=== PATIENT | male | born 1945 | race Caucasian/White ===

== ENCOUNTER → 2018-08-13 | Outpatient (CLI) | payer MEDICARE ==
--- NOTE | 2018-08-13 13:05 | PE ---
EXAMINATION TYPE: PET CT fusion skull to thigh DATE OF EXAM: 08/13/2018 COMPARISON: Outside CT report July 29, 2018 HISTORY: Solitary pulmonary nodule TECHNIQUE: Following the intravenous administration of 13.73 mCi of F-18 FDG, whole body images are performed from the skull base to the midthigh. Images are reviewed on the computer in the coronal, a xial, and sagittal planes. Reconstructed rotating images are created on independent workstation and reviewed on the computer. A noncontrast CT is performed in conjunction with the PET scan. SCAN: Initial Scan FINDINGS: SKULL BASE AND NECK: No suspicious hypermetabolic uptake. Mild symmetric uptake at level of vocal co rds is presumed product of phonation. CHEST, MEDIASTINUM, AND HILAR REGION: There is background moderate to advanced emphysematous change. There is scarlike opacity in the right upper lobe extending along major fissure slightly more focal a xial image 98 where it measures 1.3 x 1.1 cm without suspicious hypermetabolic uptake. Post inflammat ory scar is favored. No areas of abnormal hypermetabolic uptake throughout the thorax are identified. ABDOMEN AND PELVIS: No suspicious hypermetabolic uptake is seen. Normal excretion is noted. OSSEOUS STRUCTURES: No suspicious hypermetabolic uptake is present. OTHER CT: Mild to moderate calcified plaque bilateral carotid bulb level is present. Coronary artery calcification is seen which is noted marker from underlying coronary artery disease. There is mild to moderate calcified plaque of aorta extending into iliac branch vessels. There is ane urysmal change of the infrarenal abdominal aorta measuring up to 3.5 cm transversely axial image 202 extending up to level of iliac bifurcation. Prostate gland is enlarged in size bulging on bladder base. Bladder wall is mildly thickened. Althoug h obstruction related to BPH is suspected. Correlate clinically. Scattered pelvic phleboliths are not ed bilaterally. There are multilevel uncovertebral facet degenerative changes involving the mid to lower lumbar spine . There is multilevel spurring throughout the spine. Spine is straightened with multilevel disc space narrowing in the lumbar spine. IMPRESSION: 1. No suspicious hypermetabolic uptake to suggest malignancy. 2. 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
== END ==
LOC: RADPETMAIN 09:33
PROVIDERS: ATTEND Internal Medicine
DX: I71.4 Abdominal aortic aneurysm, without rupture (principal)
CPT/HCPCS: 78815; A9552

== ENCOUNTER 2020-12-23 17:53 | Inpatient (IN) | payer MEDICARE, OTHER ==
[2020-12-24] MEDS: HEPARIN SODIUM,PORCINE/PF 5,000 UNIT/0.5 ML SYRINGE SQ SCH ×3 (00:55→21:15)
[2020-12-24] MEDS: SODIUM CHLORIDE 0.9% 1,000 ML IV SCH ×3 (01:06→21:03)
[2020-12-24] MEDS ORDERED: PANTOPRAZOLE 40 MG TABLET PO SCH (06:00)
[2020-12-24] MEDS: DOXYCYCLINE 100 MG CAP PO SCH ×2 (06:47→21:15)
[2020-12-24 08:27] LABS: Glucose,Whole Blood 85 mg/dL (75-99)
[2020-12-24] MEDS ORDERED: PANTOPRAZOLE 40 MG/10 ML VIAL IVP SCH (09:00)
[2020-12-24] MEDS ORDERED: predniSONE 10 MG TAB PO SCH (09:00)
[2020-12-24 09:13] LABS: Basophils # (A) 0.03 X 10*3/uL (0.00-0.10); Basophils % (A) 0.3 %; Eosinophils # (A) 0 X 10*3/uL (0.04-0.35); Eosinophils % (A) 0 %; HCT 37.5 % (39.6-50.0); HGB 11.6 g/dL (13.0-17.0); Lymphocytes # (A) 1.29 X 10*3/uL (0.90-5.00); Lymphocytes % (A) 11.6 %; MCHC 30.9 g/dL (32.0-37.0); MCV 96.9 fL (80.0-97.0); Mean Platelet Volume 10.2 fL (9.5-12.2); Monocytes # (A) 0.66 X 10*3/uL (0.20-1.00); Monocytes % (A) 5.9 %; Neutrophils % (A) 81.5 %; Platelet Count 177 X 10*3/uL (140-440); RBC 3.87 X 10*6/uL (4.40-5.60); RDW 16.3 % (11.5-14.5); WBC 11.16 X 10*3/uL (4.50-10.00)
[2020-12-24 10:01] LABS: African American GFR (CKD) 51.3 (60.0-200.0); Albumin 4.2 g/dL (3.80-4.90); Albumin/Globulin Ratio 2.33 (1.60-3.17); Anion Gap 12.2 mmol/L (4.00-12.00); BUN/Creat Ratio 15.33 Ratio (12.00-20.00); Calcium 8.6 mg/dL (8.7-10.3); Carbon Dioxide 26.8 mmol/L (21.6-31.8); Globulin 1.8 g/dL (1.6-3.3); Non-African American GFR(CKD) 44.3 (60.0-200.0); Potassium 4.2 mmol/L (3.5-5.5); Total Bilirubin 0.7 mg/dL (0.2-1.2)
[2020-12-24] MEDS ORDERED: IPRATROPIUM-ALBUTEROL 3 ML NEB INHALATION PRN (11:12)
[2020-12-24] MEDS ORDERED: MORPHINE CONC SOLN 10mg/0.5mL ORAL SYRG PO PRN (11:12)
[2020-12-24 11:39] LABS: Glucose,Whole Blood 90 mg/dL (75-99)
[2020-12-24] MEDS: INSULIN ASPART (NovoLOG) 100 UNIT/ML VIAL SQ SCH ×3 (11:40→21:01)
[2020-12-24] MEDS: GABAPENTIN 400 MG CAP PO SCH ×2 (11:48→21:15)
[2020-12-24] MEDS: TAMSULOSIN 0.4 MG CAP.ER.24H PO SCH ×2 (11:48→21:15)
[2020-12-24] MEDS: methIMAzole 5 MG TAB PO SCH (11:48)
[2020-12-24] MEDS: AMIODARONE 100 MG TAB PO SCH (11:48)
[2020-12-24] MEDS: DILTIAZEM CD 120 MG CAP.ER.24H PO SCH (11:48)
[2020-12-24] MEDS: BUDESONIDE 1 MG/2 ML NEBU INHALATION SCH ×2 (12:11→20:05)
[2020-12-24] MEDS ORDERED: MORPHINE ORAL SOLN 10 MG/5 ML CUP PO PRN (15:25)
[2020-12-24] MEDS ORDERED: MAG HYDROX/AL HYDROX/SIMETH 30 ML CUP PO PRN (16:35)
[2020-12-24] MEDS ORDERED: NALOXONE 0.4 MG/ML 1 ML VIAL IV PRN (16:35)
[2020-12-24] MEDS ORDERED: ALPRAZolam 0.25 MG TAB PO PRN (16:35)
[2020-12-24] MEDS ORDERED: ONDANSETRON 4 MG/2 ML VIAL IVP PRN (16:35)
[2020-12-24] MEDS ORDERED: MAGNESIUM HYDROXIDE 2,400 MG/10 ML CUP PO PRN (16:35)
[2020-12-24] MEDS ORDERED: CALCIUM CARBONATE 500 MG CHEWABLE PO PRN (16:35)
[2020-12-24] MEDS ORDERED: MELATONIN 3 MG TABLET PO PRN (16:35)
[2020-12-24] MEDS ORDERED: LACTULOSE 20 GM/30 ML CUP PO PRN (16:35)
[2020-12-24 16:40] LABS: Glucose,Whole Blood 135 mg/dL (75-99)
[2020-12-24] MEDS: IPRATROPIUM-ALBUTEROL 3 ML NEB INHALATION SCH ×2 (16:46→20:05)
[2020-12-24] MEDS: guaiFENesin 600 MG TABLET.ER PO SCH ×2 (17:01→21:15)
--- NOTE | 2020-12-24 17:01 | XR ---
EXAMINATION TYPE: XR chest 2V DATE OF EXAM: 12/24/2020 COMPARISON: 12/10/2020. HISTORY: Cough. TECHNIQUE: Frontal and lateral views of the chest are obtained. FINDINGS: There is increased small to moderate opacities in the right upper lung. No significant ple ural effusion, or pneumothorax seen. The cardiac silhouette size is within normal limits. The osse ous structures are intact. IMPRESSION: Increased right upper lung opacities, concerning for infiltrates.
[2020-12-24 17:40] LABS: Anisocytosis Slight; Basophils % (A) 0 %; Eosinophils % (A) 0 %; HCT 32.9 % (39.0-53.0); HGB 10.5 gm/dL (13.0-17.5); Hypochromasia Slight; Lymphocytes # (A) 0.4 k/uL (1.0-4.8); Lymphocytes % (A) 6 %; MCHC 31.8 g/dL (31.0-37.0); MCV 94.4 fL (80.0-100.0); Mean Platelet Volume 7.3; Monocytes # (A) 0.4 k/uL (0-1.0); Monocytes % (A) 6 %; Neutrophils # (A) 6.6 k/uL (1.3-7.7); Neutrophils % (A) 87 %; Platelet Count 152 k/uL (150-450); RBC 3.49 m/uL (4.30-5.90); RDW 16.8 % (11.5-15.5); WBC 7.6 k/uL (3.8-10.6)
[2020-12-24 17:57] LABS: ALT 14 U/L (4-49); AST 20 U/L (17-59); African American GFR (CKD) 53 (>60 ml/min/1.73 sqM); Albumin 3.3 g/dL (3.5-5.0); Albumin/Globulin Ratio 1.6; Alkaline Phosphatase 54 U/L (38-126); Anion Gap 8 mmol/L; Blood Urea Nitrogen 22 mg/dL (9-20); Calcium 8.5 mg/dL (8.4-10.2); Carbon Dioxide 28 mmol/L (22-30); Chloride 99 mmol/L (98-107); Globulin 2.1 g/dL; Glucose 114 mg/dL (74-99); Non-African American GFR(CKD) 45 (>60 ml/min/1.73 sqM); Potassium 4.1 mmol/L (3.5-5.1); Sodium 135 mmol/L (137-145); Total Bilirubin 0.5 mg/dL (0.2-1.3); Total Protein 5.4 g/dL (6.3-8.2)
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
[2020-12-24 20:51] LABS: Glucose,Whole Blood 103 mg/dL (75-99)
[2020-12-24] MEDS: INSULIN DETEMIR (LEVEMIR) 100 UNIT/ML SYR SQ SCH (21:14)
[2020-12-24] MEDS: SENNOSIDES-DOCUSATE SODIUM 1 EACH TAB PO SCH (21:15)
[2020-12-24] MEDS: ATORVASTATIN 80 MG TAB PO SCH (21:15)
[2020-12-24] MEDS: MONTELUKAST 10 MG TAB PO SCH (21:15)
[2020-12-24] MEDS: methylPREDNISolone SOD SUCCI 40 MG/ML 1 ML VIAL IV SCH (23:27)
[2020-12-25] MEDS: IPRATROPIUM-ALBUTEROL 3 ML NEB INHALATION SCH ×6 (00:53→21:25)
[2020-12-25] MEDS: methIMAzole 5 MG TAB PO SCH (05:15)
[2020-12-25] MEDS: PANTOPRAZOLE 40 MG TABLET PO SCH (05:15)
[2020-12-25] MEDS: SODIUM CHLORIDE 0.9% 1,000 ML IV SCH ×2 (05:15→15:55)
[2020-12-25 07:17] LABS: Glucose,Whole Blood 133 mg/dL (75-99)
[2020-12-25] MEDS: INSULIN ASPART (NovoLOG) 100 UNIT/ML VIAL SQ SCH ×4 (07:35→21:53)
[2020-12-25] MEDS: GABAPENTIN 400 MG CAP PO SCH ×3 (07:56→21:59)
[2020-12-25] MEDS: methylPREDNISolone SOD SUCCI 40 MG/ML 1 ML VIAL IV SCH (07:56)
[2020-12-25] MEDS: BUDESONIDE 1 MG/2 ML NEBU INHALATION SCH ×2 (08:31→21:25)
[2020-12-25] MEDS: SENNOSIDES-DOCUSATE SODIUM 1 EACH TAB PO SCH ×2 (09:36→21:59)
[2020-12-25] MEDS: AMIODARONE 100 MG TAB PO SCH (09:36)
[2020-12-25] MEDS: FERROUS SULFATE 325 MG TAB PO SCH (09:37)
[2020-12-25] MEDS: guaiFENesin 600 MG TABLET.ER PO SCH ×4 (09:37→21:59)
[2020-12-25] MEDS: TAMSULOSIN 0.4 MG CAP.ER.24H PO SCH ×2 (09:37→21:59)
[2020-12-25] MEDS: DILTIAZEM CD 120 MG CAP.ER.24H PO SCH (09:37)
[2020-12-25] MEDS: HEPARIN SODIUM,PORCINE/PF 5,000 UNIT/0.5 ML SYRINGE SQ SCH ×2 (09:38→21:59)
[2020-12-25] MEDS: DOXYCYCLINE 100 MG CAP PO SCH (09:38)
[2020-12-25] MEDS: FOLIC ACID 1 MG TAB PO SCH (11:21)
[2020-12-25 11:32] LABS: Glucose,Whole Blood 171 mg/dL (75-99)
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
[2020-12-25 16:55] LABS: Glucose,Whole Blood 142 mg/dL (75-99)
--- NOTE | 2020-12-25 20:38 | P.PN ---
Progress Note - Text Progress Note Date: 12/25/20 Chief Complaint: Congested cough History of presenting complaint: This is a 75-year-old patient, who is an ex-smoker. Patient was transferred here from [facility]. Apparently at resident of [facility] chronic stable medical conditions include nephrectomy, COPD, GERD, atrial fibrillation, hypertension, anemia, diabetes, hepatitis C, diabetic neuralgia, on 3 L oxygen at home. Patient who presented with worsening short of breath cough congestion some sputum production. Some fever. She has not of hearing. Does wear oxygen at home/3 L. He does follow Dr. Casanova from pulmonary. Patient also become rather lethargic. Admitted with acute COPD exacerbation, acute hypoxic respiratory failure, bilateral pneumonia, acute metabolic toxic encephalopathy. Started on DuoNeb, in his steroids, IV Solu-Medrol, oxygen supplementation, IV ceftriaxone December 25: Sitting up in a chair. Oral intake improving. Breathing a bit better. Cough with congestive sputum. More awake. Review of systems: Was done for constitutional, cardiovascular, GI, pulmonary. relevant finding as above Active Medications Acetaminophen (Acetaminophen Tab 325 Mg Tab) 650 mg PO Q6H PRN PRN Reason: Pain Al Hydroxide/Mg Hydroxide (Mag Hydrox/Al Hydrox/Simeth 30 Ml Cup) 15 ml PO Q6HR PRN PRN Reason: Indigestion Albuterol/Ipratropium (Ipratropium-Albuterol 3 Ml Neb) 3 ml INHALATION RT-Q4H PRN PRN Reason: Shortness Of Breath Last Admin: 12/24/20 12:11 Dose: 3 ml Documented by: Albuterol/Ipratropium (Ipratropium-Albuterol 3 Ml Neb) 3 ml INHALATION Q4H LELE Last Admin: 12/25/20 16:20 Dose: 3 ml Documented by: Alprazolam (Alprazolam 0.25 Mg Tab) 0.25 mg PO Q6HR PRN PRN Reason: Anxiety Amiodarone HCl (Amiodarone 100 Mg Tab) 100 mg PO DAILY@0900 [facility] Last Admin: 12/25/20 09:36 Dose: 100 mg Documented by: Atorvastatin Calcium (Atorvastatin 80 Mg Tab) 80 mg PO HS@2100 [facility] Last Admin: 12/24/20 21:15 Dose: 80 mg Documented by: Budesonide (Budesonide 1 Mg/2 Ml Nebu) 1 mg INHALATION RT-BID@0900,2100 [facility] Last Admin: 12/25/20 08:31 Dose: 1 mg Documented by: Calcium Carbonate/Glycine (Calcium Carbonate 500 Mg Chewable) 1,000 mg PO Q4HR PRN PRN Reason: Dyspepsia Diltiazem HCl (Diltiazem Cd 120 Mg Cap.Er.24h) 120 mg PO DAILY@0900 [facility] Last Admin: 12/25/20 09:37 Dose: 120 mg Documented by: Doxycycline Monohydrate (Doxycycline 100 Mg Cap) 100 mg PO BID [facility] Last Admin: 12/25/20 09:38 Dose: 100 mg Documented by: Ferrous Sulfate (Ferrous Sulfate 325 Mg Tab) 325 mg PO DAILY@0900 [facility] Last Admin: 12/25/20 09:37 Dose: 325 mg Documented by: Folic Acid (Folic Acid 1 Mg Tab) 2 mg PO DAILY@0900 [facility] Last Admin: 12/25/20 11:21 Dose: 2 mg Documented by: Gabapentin (Gabapentin 400 Mg Cap) 400 mg PO TID@0900,1300,2100 [facility] Last Admin: 12/25/20 12:13 Dose: 400 mg Documented by: Guaifenesin (Guaifenesin 600 Mg Tablet.Er) 600 mg PO QID [facility] Last Admin: 12/25/20 15:56 Dose: 600 mg Documented by: Heparin Sodium (Porcine) (Heparin Sodium,Porcine/Pf 5,000 Unit/0.5 Ml Syringe) 5,000 unit SQ Q12HR [facility] Last Admin: 12/25/20 09:38 Dose: 5,000 unit Documented by: Sodium Chloride (Saline 0.9%) 1,000 mls @ 100 mls/hr IV .Q10H [facility] Last Admin: 12/25/20 15:55 Dose: 100 mls/hr Documented by: Ceftriaxone Sodium 1 gm/ (Sodium Chloride) 50 mls @ 100 mls/hr IVPB BID [facility] Last Admin: 12/25/20 09:37 Dose: 100 mls/hr Documented by: Insulin Aspart (Insulin Aspart (Novolog) 100 Unit/Ml Vial) 0 unit SQ ACHS [facility]; Protocol Last Admin: 12/25/20 16:59 Dose: 1 unit Documented by: Insulin Detemir (Insulin Detemir (Levemir) 100 Unit/Ml Syr) 10 unit SQ HS@2100 [facility] Last Admin: 12/24/20 21:14 Dose: 10 unit Documented by: Lactulose (Lactulose 20 Gm/30 Ml Cup) 20 gm PO DAILY PRN PRN Reason: Constipation Magnesium Hydroxide (Magnesium Hydroxide 2,400 Mg/10 Ml Cup) 2,400 mg PO DAILY PRN PRN Reason: Constipation Melatonin (Melatonin 3 Mg Tablet) 3 mg PO HS PRN PRN Reason: Insomnia Methimazole (Methimazole 5 Mg Tab) 5 mg PO DAILY@0600 [facility] Last Admin: 12/25/20 05:15 Dose: 5 mg Documented by: Montelukast Sodium (Montelukast 10 Mg Tab) 10 mg PO HS@2100 [facility] Last Admin: 12/24/20 21:15 Dose: 10 mg Documented by: Morphine Sulfate (Morphine Oral Soln 10 Mg/5 Ml Cup) 5 mg PO Q4HR PRN PRN Reason: Pain Naloxone HCl (Naloxone 0.4 Mg/Ml 1 Ml Vial) 0.2 mg IV Q2M PRN PRN Reason: Opioid Reversal Ondansetron HCl (Ondansetron 4 Mg/2 Ml Vial) 4 mg IVP Q8HR PRN PRN Reason: Nausea And Vomiting Pantoprazole Sodium (Pantoprazole 40 Mg Tablet) 40 mg PO DAILY@0600 [facility] Last Admin: 12/25/20 05:15 Dose: 40 mg Documented by: Prednisone (Prednisone 20 Mg Tab) 40 mg PO DAILY [facility] Senna/Docusate Sodium (Sennosides-Docusate Sodium 1 Each Tab) 1 each PO BID@0900,2100 [facility] Last Admin: 12/25/20 09:36 Dose: 1 each Documented by: Tamsulosin HCl (Tamsulosin 0.4 Mg Cap.Er.24h) 0.4 mg PO BID@0900,2100 [facility] Last Admin: 12/25/20 09:37 Dose: 0.4 mg Documented by: Past medical history to include: COPD, peripheral neuropathy, BPH, COPD, diabetes, GERD, hyper thyroidism, hypertension, hyperlipidemia, CK D, hepatitis C, hepatic neuralgia Social history: At [facility] Smoked for many years stopped a year ago. Family history: Reviewed, noncontributory to presentation Physical examination: VITAL SIGNS: 98.3, 69, 18, 111/48, 100% on 3 L GENERAL: BMI 23, sitting up, tired, short of breath. EYES: Pupils equal. Conjunctiva normal. HEENT: External appearance of nose and ears normal, oral cavity grossly normal. NECK: JVD not raised; masses not palpable. HEART: First and second heart sounds are normal; no edema. LUNGS: Respiratory rate increased, decreased breath sounds some wheezing decreased coarse breath sounds. ABDOMEN: Soft, nontender, liver spleen not palpable, no masses palpable. PSYCH: Answering questions better INVESTIGATIONS, reviewed in the clinical context: December 24: WBC 7.60 globin 10.5 potassium 4.1 creatinine 1.47 From [facility]: Lactic acid 1.3 mL 1.3 troponin I 0.011 immediately 1.9 chest x-ray bilateral infiltrates Sodium 138 potassium 4.8 BUN 20 creatinine 1.9 computed tomography scan of the brain negative WBC 12.2 hemoglobin 11 platelets 155 Assessment and plan: -Acute COPD exacerbation in the ex-smoker: Slow to respond DuoNeb every 4, Pulmicort 1 g nebulizer twice a day. IV Solu-Medrol -Possibly acute hypoxic respiratory failure from COPD and pneumonia Supplement oxygen -Bilateral pneumonia suspected gram-negative organism IV ceftriaxone 1 g twice a day -Acute metabolic toxic encephalopathy from pneumonia Follow clinically -Acute kidney injury, likely ATN from underlying infection Creatinine 1.9 down to 1.47. 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 Resume Lantus -Essential hypertension Resume Cardizem -Hyperlipidemia Continue Lipitor -BPH On Flomax -Diabetic peripheral neuropathy On Neurontin IV ceftriaxone. Nebulizers. Inhaled and IV steroids. Follow Accu-Cheks. Repeat BMP in the morning. Increase activity as tolerated. Probably discharge in 1-2 days depending on clinical course
[2020-12-25 21:15] LABS: Glucose,Whole Blood 159 mg/dL (75-99)
[2020-12-25] MEDS: MONTELUKAST 10 MG TAB PO SCH (21:59)
[2020-12-25] MEDS: ATORVASTATIN 80 MG TAB PO SCH (21:59)
[2020-12-25] MEDS: INSULIN DETEMIR (LEVEMIR) 100 UNIT/ML SYR SQ SCH (22:00)
[2020-12-26] MEDS: IPRATROPIUM-ALBUTEROL 3 ML NEB INHALATION SCH ×6 (00:59→18:58)
[2020-12-26] MEDS: methIMAzole 5 MG TAB PO SCH (06:07)
[2020-12-26] MEDS: PANTOPRAZOLE 40 MG TABLET PO SCH (06:07)
[2020-12-26 06:12] LABS: Anisocytosis Slight; Basophils % (A) 0 %; Eosinophils % (A) 0 %; HCT 31.6 % (39.0-53.0); HGB 10.7 gm/dL (13.0-17.5); Lymphocytes # (A) 0.5 k/uL (1.0-4.8); Lymphocytes % (A) 9 %; MCH 31.1 pg (25.0-35.0); MCHC 33.8 g/dL (31.0-37.0); Mean Platelet Volume 7.8; Monocytes # (A) 0.4 k/uL (0-1.0); Monocytes % (A) 6 %; Neutrophils % (A) 84 %; Platelet Count 156 k/uL (150-450); RBC 3.43 m/uL (4.30-5.90); RDW 16.2 % (11.5-15.5); WBC 5.9 k/uL (3.8-10.6)
[2020-12-26 06:18] LABS: African American GFR (CKD) 61 (>60 ml/min/1.73 sqM); Anion Gap 6 mmol/L; Blood Urea Nitrogen 24 mg/dL (9-20); Calcium 9.1 mg/dL (8.4-10.2); Carbon Dioxide 26 mmol/L (22-30); Chloride 105 mmol/L (98-107); Glucose 131 mg/dL (74-99); Non-African American GFR(CKD) 53 (>60 ml/min/1.73 sqM); Sodium 137 mmol/L (137-145)
[2020-12-26 07:15] LABS: Glucose,Whole Blood 129 mg/dL (75-99)
[2020-12-26] MEDS: INSULIN ASPART (NovoLOG) 100 UNIT/ML VIAL SQ SCH ×4 (07:25→22:01)
[2020-12-26] MEDS: HEPARIN SODIUM,PORCINE/PF 5,000 UNIT/0.5 ML SYRINGE SQ SCH ×2 (07:36→20:24)
[2020-12-26] MEDS: FERROUS SULFATE 325 MG TAB PO SCH (07:36)
[2020-12-26] MEDS: predniSONE 20 MG TAB PO SCH (07:36)
[2020-12-26] MEDS: guaiFENesin 600 MG TABLET.ER PO SCH ×4 (07:36→20:25)
[2020-12-26] MEDS: FOLIC ACID 1 MG TAB PO SCH (07:36)
[2020-12-26] MEDS: DILTIAZEM CD 120 MG CAP.ER.24H PO SCH (07:37)
[2020-12-26] MEDS: TAMSULOSIN 0.4 MG CAP.ER.24H PO SCH ×2 (07:37→20:24)
[2020-12-26] MEDS: GABAPENTIN 400 MG CAP PO SCH ×3 (07:37→20:25)
[2020-12-26] MEDS: SENNOSIDES-DOCUSATE SODIUM 1 EACH TAB PO SCH ×2 (07:37→20:24)
[2020-12-26] MEDS: AMIODARONE 100 MG TAB PO SCH (07:37)
[2020-12-26] MEDS: BUDESONIDE 1 MG/2 ML NEBU INHALATION SCH ×2 (08:34→18:58)
[2020-12-26 11:24] LABS: Glucose,Whole Blood 162 mg/dL (75-99)
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
[2020-12-26 16:35] LABS: Glucose,Whole Blood 162 mg/dL (75-99)
--- NOTE | 2020-12-26 17:44 | P.PN ---
Progress Note - Text Progress Note Date: 12/26/20 Chief Complaint: Congested cough History of presenting complaint: This is a 75-year-old patient, who is an ex-smoker. Patient was transferred here from [facility]. Apparently at resident of [facility] chronic stable medical conditions include nephrectomy, COPD, GERD, atrial fibrillation, hypertension, anemia, diabetes, hepatitis C, diabetic neuralgia, on 3 L oxygen at home. Patient who presented with worsening short of breath cough congestion some sputum production. Some fever. She has not of hearing. Does wear oxygen at home/3 L. He does follow Dr. Casanova from pulmonary. Patient also become rather lethargic. Admitted with acute COPD exacerbation, acute hypoxic respiratory failure, bilateral pneumonia, acute metabolic toxic encephalopathy. Started on DuoNeb, in his steroids, IV Solu-Medrol, oxygen supplementation, IV ceftriaxone December 25: Sitting up in a chair. Oral intake improving. Breathing a bit better. Cough with congestive sputum. More awake. December 26: Sitting up in bed. Short of breath. Cough. Oral intake improving. Less tired. On IV ceftriaxone. Review of systems: Was done for constitutional, cardiovascular, GI, pulmonary. relevant finding as above Active Medications Acetaminophen (Acetaminophen Tab 325 Mg Tab) 650 mg PO Q6H PRN PRN Reason: Pain Al Hydroxide/Mg Hydroxide (Mag Hydrox/Al Hydrox/Simeth 30 Ml Cup) 15 ml PO Q6HR PRN PRN Reason: Indigestion Albuterol/Ipratropium (Ipratropium-Albuterol 3 Ml Neb) 3 ml INHALATION RT-Q4H PRN PRN Reason: Shortness Of Breath Last Admin: 12/24/20 12:11 Dose: 3 ml Documented by: Albuterol/Ipratropium (Ipratropium-Albuterol 3 Ml Neb) 3 ml INHALATION Q4H LELE Last Admin: 12/26/20 15:12 Dose: Not Given Documented by: Alprazolam (Alprazolam 0.25 Mg Tab) 0.25 mg PO Q6HR PRN PRN Reason: Anxiety Amiodarone HCl (Amiodarone 100 Mg Tab) 100 mg PO DAILY@0900 [facility] Last Admin: 12/26/20 07:37 Dose: 100 mg Documented by: Atorvastatin Calcium (Atorvastatin 80 Mg Tab) 80 mg PO HS@2100 [facility] Last Admin: 12/25/20 21:59 Dose: 80 mg Documented by: Budesonide (Budesonide 1 Mg/2 Ml Nebu) 1 mg INHALATION RT-BID@0900,2100 [facility] Last Admin: 12/26/20 08:34 Dose: 1 mg Documented by: Calcium Carbonate/Glycine (Calcium Carbonate 500 Mg Chewable) 1,000 mg PO Q4HR PRN PRN Reason: Dyspepsia Diltiazem HCl (Diltiazem Cd 120 Mg Cap.Er.24h) 120 mg PO DAILY@0900 [facility] Last Admin: 12/26/20 07:37 Dose: 120 mg Documented by: Ferrous Sulfate (Ferrous Sulfate 325 Mg Tab) 325 mg PO DAILY@0900 [facility] Last Admin: 12/26/20 07:36 Dose: 325 mg Documented by: Folic Acid (Folic Acid 1 Mg Tab) 2 mg PO DAILY@0900 [facility] Last Admin: 12/26/20 07:36 Dose: 2 mg Documented by: Gabapentin (Gabapentin 400 Mg Cap) 400 mg PO TID@0900,1300,2100 [facility] Last Admin: 12/26/20 13:10 Dose: 400 mg Documented by: Guaifenesin (Guaifenesin 600 Mg Tablet.Er) 600 mg PO QID [facility] Last Admin: 12/26/20 17:29 Dose: 600 mg Documented by: Heparin Sodium (Porcine) (Heparin Sodium,Porcine/Pf 5,000 Unit/0.5 Ml Syringe) 5,000 unit SQ Q12HR [facility] Last Admin: 12/26/20 07:36 Dose: 5,000 unit Documented by: Ceftriaxone Sodium 1 gm/ (Sodium Chloride) 50 mls @ 100 mls/hr IVPB BID [facility] Last Admin: 12/26/20 07:35 Dose: 100 mls/hr Documented by: Insulin Aspart (Insulin Aspart (Novolog) 100 Unit/Ml Vial) 0 unit SQ ACHS [facility]; Protocol Last Admin: 12/26/20 17:29 Dose: 1 unit Documented by: Insulin Detemir (Insulin Detemir (Levemir) 100 Unit/Ml Syr) 10 unit SQ HS@2100 [facility] Last Admin: 12/25/20 22:00 Dose: 10 unit Documented by: Lactulose (Lactulose 20 Gm/30 Ml Cup) 20 gm PO DAILY PRN PRN Reason: Constipation Magnesium Hydroxide (Magnesium Hydroxide 2,400 Mg/10 Ml Cup) 2,400 mg PO DAILY PRN PRN Reason: Constipation Melatonin (Melatonin 3 Mg Tablet) 3 mg PO HS PRN PRN Reason: Insomnia Methimazole (Methimazole 5 Mg Tab) 5 mg PO DAILY@0600 [facility] Last Admin: 12/26/20 06:07 Dose: 5 mg Documented by: Montelukast Sodium (Montelukast 10 Mg Tab) 10 mg PO HS@2100 [facility] Last Admin: 12/25/20 21:59 Dose: 10 mg Documented by: Morphine Sulfate (Morphine Oral Soln 10 Mg/5 Ml Cup) 5 mg PO Q4HR PRN PRN Reason: Pain Naloxone HCl (Naloxone 0.4 Mg/Ml 1 Ml Vial) 0.2 mg IV Q2M PRN PRN Reason: Opioid Reversal Ondansetron HCl (Ondansetron 4 Mg/2 Ml Vial) 4 mg IVP Q8HR PRN PRN Reason: Nausea And Vomiting Pantoprazole Sodium (Pantoprazole 40 Mg Tablet) 40 mg PO DAILY@0600 [facility] Last Admin: 12/26/20 06:07 Dose: 40 mg Documented by: Prednisone (Prednisone 20 Mg Tab) 40 mg PO DAILY [facility] Last Admin: 12/26/20 07:36 Dose: 40 mg Documented by: Senna/Docusate Sodium (Sennosides-Docusate Sodium 1 Each Tab) 1 each PO BID@0900,2100 [facility] Last Admin: 12/26/20 07:37 Dose: 1 each Documented by: Tamsulosin HCl (Tamsulosin 0.4 Mg Cap.Er.24h) 0.4 mg PO BID@0900,2100 [facility] Last Admin: 12/26/20 07:37 Dose: 0.4 mg Documented by: Past medical history to include: COPD, peripheral neuropathy, BPH, COPD, diabetes, GERD, hyper thyroidism, hypertension, hyperlipidemia, CK D, hepatitis C, hepatic neuralgia Social history: At [facility] Smoked for many years stopped a year ago. Family history: Reviewed, noncontributory to presentation Physical examination: VITAL SIGNS: 97.7, 68, 17, 132/61, 100% on 4 L GENERAL: BMI 23, sitting up, tired, short of breath. EYES: Pupils equal. Conjunctiva normal. HEENT: External appearance of nose and ears normal, oral cavity grossly normal. NECK: JVD not raised; masses not palpable. HEART: First and second heart sounds are normal; no edema. LUNGS: Respiratory rate increased, decreased breath sounds some wheezing ABDOMEN: Soft, nontender, liver spleen not palpable, no masses palpable. PSYCH: Answering questions better INVESTIGATIONS, reviewed in the clinical context: December 26: WBC [age]-year-old woman 10.7 potassium 4 creatinine 1.3 pro-calcitonin 0.39 December 24: WBC 7.60 globin 10.5 potassium 4.1 creatinine 1.47 From [facility]: Lactic acid 1.3 mL 1.3 troponin I 0.011 immediately 1.9 chest x-ray bilateral infiltrates Sodium 138 potassium 4.8 BUN 20 creatinine 1.9 computed tomography scan of the brain negative WBC 12.2 hemoglobin 11 platelets 155 Assessment and plan: -Acute COPD exacerbation in the ex-smoker: Improving DuoNeb every 4, Pulmicort 1 g nebulizer twice a day. IV [id number] to oral prednisone -Possibly acute hypoxic respiratory failure from COPD and pneumonia Supplement oxygen -Bilateral pneumonia suspected gram-negative organism-improving IV ceftriaxone 1 g twice a day -Acute metabolic toxic encephalopathy from pneumonia: Better Follow clinically -Acute kidney injury, likely ATN from underlying infection Creatinine 1.9 down to 1.47. 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 Resume Lantus -Essential hypertension Resume Cardizem -Hyperlipidemia Continue Lipitor -BPH On Flomax -Diabetic peripheral neuropathy On Neurontin IV ceftriaxone. Nebulizers. Steroids changed to by mouth. Patient still short of breath with minimal activity. We'll watch for another 24 hours. Hopefully discharge tomorrow. Discussed with the patient.
[2020-12-26] MEDS: MONTELUKAST 10 MG TAB PO SCH (20:24)
[2020-12-26] MEDS: ATORVASTATIN 80 MG TAB PO SCH (20:25)
[2020-12-26] MEDS: ACETAMINOPHEN TAB 325 MG TAB PO PRN (20:27)
[2020-12-26 20:43] LABS: Glucose,Whole Blood 196 mg/dL (75-99)
[2020-12-26] MEDS: INSULIN DETEMIR (LEVEMIR) 100 UNIT/ML SYR SQ SCH (22:30)
[2020-12-27] MEDS: IPRATROPIUM-ALBUTEROL 3 ML NEB INHALATION SCH ×4 (01:23→11:48)
[2020-12-27] MEDS: methIMAzole 5 MG TAB PO SCH (05:58)
[2020-12-27] MEDS: PANTOPRAZOLE 40 MG TABLET PO SCH (05:58)
[2020-12-27 06:58] LABS: Glucose,Whole Blood 97 mg/dL (75-99)
[2020-12-27] MEDS: INSULIN ASPART (NovoLOG) 100 UNIT/ML VIAL SQ SCH ×2 (07:09→11:56)
[2020-12-27 07:36] VITALS: BP 134/67; TEMP 97.6
--- NOTE | 2020-12-27 08:14 | XR ---
EXAMINATION TYPE: XR chest 2V DATE OF EXAM: 12/27/2020 COMPARISON: 12/24/2020 TECHNIQUE: PA and lateral views submitted. HISTORY: Cough FINDINGS: There is hyperinflation. There is an irregular density in the right upper lobe. Heart size normal. Hy pertrophic and degenerative change the spine. No overt failure. No sizable pleural effusion. No inter stitial edema. Prominence the pulmonary arteries can be associated with pulmonary arterial hypertensi on. Atherosclerotic change aorta. Biapical pleural thickening. IMPRESSION: 1. Irregular right upper lobe density. Could be on the basis of pneumonia underlying neoplasm in the differential diagnosis correlate clinically. Findings stable.
[2020-12-27] MEDS: BUDESONIDE 1 MG/2 ML NEBU INHALATION SCH (08:21)
[2020-12-27] MEDS: FERROUS SULFATE 325 MG TAB PO SCH (09:59)
[2020-12-27] MEDS: GABAPENTIN 400 MG CAP PO SCH ×2 (09:59→12:51)
[2020-12-27] MEDS: guaiFENesin 600 MG TABLET.ER PO SCH ×2 (09:59→12:51)
[2020-12-27] MEDS: predniSONE 20 MG TAB PO SCH (10:00)
[2020-12-27] MEDS: DILTIAZEM CD 120 MG CAP.ER.24H PO SCH (10:00)
[2020-12-27] MEDS: SENNOSIDES-DOCUSATE SODIUM 1 EACH TAB PO SCH (10:01)
[2020-12-27] MEDS: FOLIC ACID 1 MG TAB PO SCH (10:01)
[2020-12-27] MEDS: HEPARIN SODIUM,PORCINE/PF 5,000 UNIT/0.5 ML SYRINGE SQ SCH (10:02)
[2020-12-27] MEDS: TAMSULOSIN 0.4 MG CAP.ER.24H PO SCH (10:02)
[2020-12-27] MEDS: ACETAMINOPHEN TAB 325 MG TAB PO PRN (10:15)
[2020-12-27] MEDS: AMIODARONE 100 MG TAB PO SCH (10:15)
[2020-12-27 11:38] LABS: Glucose,Whole Blood 128 mg/dL (75-99)
--- NOTE | 2020-12-27 14:36 | P.DS ---
Providers Date of admission: 12/23/20 22:25 Expected date of discharge: 12/27/20 Attending physician: Ted Musa Consults: 12/24/20 16:29 Consult Physician Routine Consulting Provider: Sergo Casanova Consult Reason/Comments: COPD Do you want consulting provider notified?: Yes Primary care physician: Stated None Hospital Course: Chief Complaint: Congested cough History of presenting complaint: This is a 75-year-old patient, who is an ex-smoker. Patient was transferred here from [facility]. Apparently at [facility] chronic stable m edical conditions include nephrectomy, COPD, GERD, atrial fibrillation, hypertension, anemia, diabetes, hepatitis C, diabetic neuralgia, on 3 L oxygen at home. Patient who presented with worsening short of breath cough congestion some sputum production. Some fever. She has not of hearing. Does wear oxygen at home/3 L. He does follow Dr. Casanova from pulmonary. Patient also become rather lethargic. Admitted with acute COPD exacerbation, acute hypoxic respiratory failure, bilateral pneumonia, acute metabolic toxic encephalopathy. Started on DuoNeb, in his steroids, IV Solu-Medrol, oxygen supplementation, IV ceftriaxone December 25: Sitting up in a chair. Oral intake improving. Breathing a bit better. Cough with congestive sputum. More awake. December 26: Sitting up in bed. Short of breath. Cough. Oral intake improving. Less tired. On IV ceftriaxone. December 27: Breathing and cough better. Oral intake improving. Less wheezing. Care was discussed with the patient. Questions answered. Will be changed to oral Ceftin. Discussion and discharge planning more than 35 minutes Consultation: Dr. Casanova from pulmonary Past medical history to include: COPD, peripheral neuropathy, BPH, COPD, diabetes, GERD, hyper thyroidism, hypertension, hyperlipidemia, CK D, hepatitis C, hepatic neuralgia Social history: At [facility] Smoked for many years stopped a year ago. Family history: Reviewed, noncontributory to presentation Physical examination: VITAL SIGNS: 97.6, 77, 16, 134/67, 98% on 3 dose GENERAL: BMI 23, sitting up, short of breath improved EYES: Pupils equal. Conjunctiva normal. HEENT: External appearance of nose and ears normal, oral cavity grossly normal. NECK: JVD not raised; masses not palpable. HEART: First and second heart sounds are normal; no edema. LUNGS: Respiratory rate increased, decreased breath sounds ABDOMEN: Soft, nontender, liver spleen not palpable, no masses palpable. PSYCH: Answering questions better INVESTIGATIONS, reviewed in the clinical context: December 26: WBC [age]-year-old woman 10.7 potassium 4 creatinine 1.3 pro-calcitonin 0.39 December 24: WBC 7.60 globin 10.5 potassium 4.1 creatinine 1.47 From [facility]: Lactic acid 1.3 mL 1.3 troponin I 0.011 immediately 1.9 chest x-ray bilateral infiltrates Sodium 138 potassium 4.8 BUN 20 creatinine 1.9 computed tomography scan of the brain negative WBC 12.2 hemoglobin 11 platelets 155 Assessment and plan: -Acute COPD exacerbation in the ex-smoker: Improving DuoNeb every 4, Pulmicort 1 g nebulizer twice a day. IV [id number] to oral prednisone -Possibly acute hypoxic respiratory failure from COPD and pneumonia Supplement oxygen -Bilateral pneumonia suspected gram-negative organism-improving IV ceftriaxone 1 g twice a day. Changed to oral Ceftin -Acute metabolic toxic encephalopathy from pneumonia: Better Follow clinically -Acute kidney injury, likely ATN from underlying infection Creatinine 1.9 down to 1.47. 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 Resume Lantus -Essential hypertension Resume Cardizem -Hyperlipidemia Continue Lipitor -BPH On Flomax -Diabetic peripheral neuropathy On Neurontin Disposition: [facility] CBC BMP: 3 days Plan - Discharge Summary Discharge Rx Participant: No New Discharge Prescriptions: New Cefuroxime Axetil [Ceftin] 500 mg PO BID #6 tab Lactulose [Cephulac] 20 gm PO DAILY PRN ml PRN Reason: Constipation guaiFENesin [Mucinex] 600 mg PO QID tablet.er Ipratropium-Albuterol Nebulize [Duoneb 0.5 mg-3 mg/3 ml Soln] 3 ml INHALATION RT-Q4H PRN ml PRN Reason: Shortness Of Breath Melatonin 3 mg PO HS PRN tablet PRN Reason: Insomnia predniSONE 10 mg PO DAILY #30 tab Continue Sennosides-Docusate Sodium [Senokot-S] 1 tab PO BID@0900,2100 Tamsulosin [Flomax] 0.4 mg PO BID@0900,2099 Montelukast Sodium [Singulair] 10 mg PO HS@2099 Insulin Glargine,Hum.rec.anlog [Semglee Pen] 10 units SQ HS@2099 Omeprazole 20 mg PO DAILY@0600 Methimazole [Tapazole] 5 mg PO DAILY@0600 Folic Acid 2 mg PO DAILY@0900 Ferrous Sulfate [Iron] 325 mg PO DAILY@0900 Amiodarone HCl [Pacerone] 100 mg PO DAILY@0900 Gabapentin [Neurontin] 400 mg PO TID@0900,1300,2099 #9 cap MORPHINE ORAL LUIZ CONC 20mg/mL [Roxanol Oral Soln Conc 20MG/ML] 5 mg PO Q4HR PRN #600 bottle PRN Reason: Pain Acetaminophen Tab [Tylenol] 650 mg PO Q6H PRN PRN Reason: Pain Magic Mouthwash 15 ml PO Q6H Budesonide [Pulmicort] 1 mg INHALATION RT-BID@899,2099 Diltiazem HCl [Cardizem CD] 120 mg PO DAILY@0900 Atorvastatin Calcium [Lipitor] 80 mg PO HS@2099 Changed Ipratropium-Albuterol Nebulize [Duoneb 0.5 mg-3 mg/3 ml Soln] 3 ml INHALATION TID #0 Discontinued Levalbuterol Tartrate [Levalbuterol Tartrate 45 MCG Hfa] 2 puff INHALATION RT-Q4H predniSONE 10 mg PO DAILY@0900 Furosemide [Lasix] 20 mg PO DAILY@0900 Discharge Medication List Acetaminophen Tab [Tylenol] 650 mg PO Q6H PRN 12/23/20 [History] Amiodarone HCl [Pacerone] 100 mg PO DAILY@89912/23/20 [History] Atorvastatin Calcium [Lipitor] 80 mg PO HS@209912/23/20 [History] Budesonide [Pulmicort] 1 mg INHALATION RT-BID@899,209912/23/20 [History] Diltiazem HCl [Cardizem CD] 120 mg PO DAILY@89912/23/20 [History] Ferrous Sulfate [Iron] 325 mg PO DAILY@89912/23/20 [History] Folic Acid 2 mg PO DAILY@89912/23/20 [History] Insulin Glargine,Hum.rec.anlog [Semglee Pen] 10 units SQ HS@209912/23/20 [His tory] Magic Mouthwash 15 ml PO Q6H 12/23/20 [History] Methimazole [Tapazole] 5 mg PO DAILY@59912/23/20 [History] Montelukast Sodium [Singulair] 10 mg PO HS@209912/23/20 [History] Omeprazole 20 mg PO DAILY@59912/23/20 [History] Sennosides-Docusate Sodium [Senokot-S] 1 tab PO BID@0900,209912/23/20 [History] Tamsulosin [Flomax] 0.4 mg PO BID@0900,209912/23/20 [History] Cefuroxime Axetil [Ceftin] 500 mg PO BID #6 tab 12/27/20 [Rx] Gabapentin [Neurontin] 400 mg PO TID@0900,1300,2099 #9 cap 12/27/20 [Rx] Ipratropium-Albuterol Nebulize [Duoneb 0.5 mg-3 mg/3 ml Soln] 3 ml INHALATION RT-Q4H PRN ml 12/27/20 [Rx] Ipratropium-Albuterol Nebulize [Duoneb 0.5 mg-3 mg/3 ml Soln] 3 ml INHALATION TID #0 12/27/20 [Rx] Lactulose [Cephulac] 20 gm PO DAILY PRN ml 12/27/20 [Rx] MORPHINE ORAL LUIZ CONC 20mg/mL [Roxanol Oral Soln Conc 20MG/ML] 5 mg PO Q4HR PRN #600 bottle 12/27/20 [Rx] Melatonin 3 mg PO HS PRN tablet 12/27/20 [Rx] guaiFENesin [Mucinex] 600 mg PO QID tablet.er 12/27/20 [Rx] predniSONE 10 mg PO DAILY #30 tab 12/27/20 [Rx] Follow up Appointment(s)/Referral(s): Sergo Casanova MD [STAFF PHYSICIAN] - 01/20/21 1:45 pm
[2020-12-27 14:44] VITALS: PULSE 77; RESP 16
== END 2020-12-27 15:30 | disposition home or self-care (01) | DRG 177 ==
LOC: 4SSUR 22:25
PROVIDERS: ADMIT Hospitalist; ATTEND Hospitalist
PROC: 3E0F7SF Introduction of Other Gas into Respiratory Tract, Via Natural or Artificial Opening (ICD-10-PCS; principal; 2020-12-23)
DX: J15.6 Pneumonia due to other Gram-negative bacteria (principal); G92 Toxic encephalopathy; J96.21 Acute and chronic respiratory failure with hypoxia; N17.0 Acute kidney failure with tubular necrosis; J44.0 Chronic obstructive pulmonary disease with (acute) lower respiratory infection; J44.1 Chronic obstructive pulmonary disease with (acute) exacerbation; N18.30 Chronic kidney disease, stage 3 unspecified; N40.0 Benign prostatic hyperplasia without lower urinary tract symptoms; E05.90 Thyrotoxicosis, unspecified without thyrotoxic crisis or storm; D64.9 Anemia, unspecified; B18.2 Chronic viral hepatitis C; E03.9 Hypothyroidism, unspecified; E11.22 Type 2 diabetes mellitus with diabetic chronic kidney disease; E11.42 Type 2 diabetes mellitus with diabetic polyneuropathy; E78.5 Hyperlipidemia, unspecified; I12.9 Hypertensive chronic kidney disease with stage 1 through stage 4 chronic kidney disease, or unspecified chronic kidney disease; I48.91 Unspecified atrial fibrillation; J18.9 Pneumonia, unspecified organism; K21.9 Gastro-esophageal reflux disease without esophagitis; Z79.899 Other long term (current) drug therapy; Z87.891 Personal history of nicotine dependence; Z90.49 Acquired absence of other specified parts of digestive tract; Z90.5 Acquired absence of kidney; Z93.3 Colostomy status; Z87.19 Personal history of other diseases of the digestive system; Z79.4 Long term (current) use of insulin
CPT/HCPCS: 71046; 80048; 80053; 83880; 84145; 85025; 93005; 94640; 94760

== ENCOUNTER 2021-01-22 16:53 | Inpatient (IN) | payer MEDICARE, OTHER ==
[2021-01-22 20:19] LABS: Glucose,Whole Blood 128 mg/dL (75-99)
[2021-01-22] MEDS ORDERED: MAG HYDROX/AL HYDROX/SIMETH 30 ML CUP PO PRN (20:22)
[2021-01-22] MEDS ORDERED: ACETAMINOPHEN TAB 325 MG TAB PO PRN (20:22)
[2021-01-22] MEDS ORDERED: ONDANSETRON 4 MG/2 ML VIAL IVP PRN (20:22)
[2021-01-22] MEDS ORDERED: CALCIUM CARBONATE 500 MG CHEWABLE PO PRN (20:22)
[2021-01-22] MEDS ORDERED: NALOXONE 0.4 MG/ML 1 ML VIAL IV PRN (20:22)
[2021-01-22] MEDS ORDERED: IPRATROPIUM-ALBUTEROL 3 ML NEB INHALATION PRN (20:29)
[2021-01-22] MEDS ORDERED: HEPARIN SODIUM,PORCINE/PF 5,000 UNIT/0.5 ML SYRINGE SQ SCH (21:00)
[2021-01-22] MEDS: INSULIN ASPART (NovoLOG) 100 UNIT/ML VIAL SQ SCH (21:12)
[2021-01-22] MEDS: HEPARIN SODIUM,PORCINE/PF 5,000 UNIT/0.5 ML SYRINGE SQ SCH (21:14)
[2021-01-22 21:18] LABS: Prothrombin Time 10.8 sec (9.0-12.0)
[2021-01-22 21:22] LABS: Basophils # (A) 0.1 k/uL (0-0.2); Basophils % (A) 1 %; Eosinophils % (A) 0 %; HCT 47.9 % (39.0-53.0); Lymphocytes # (A) 0.6 k/uL (1.0-4.8); Lymphocytes % (A) 6 %; MCH 30.6 pg (25.0-35.0); MCHC 31.8 g/dL (31.0-37.0); MCV 96.2 fL (80.0-100.0); Mean Platelet Volume 8.3; Monocytes # (A) 0.3 k/uL (0-1.0); Monocytes % (A) 3 %; Neutrophils # (A) 8.6 k/uL (1.3-7.7); Neutrophils % (A) 90 %; Platelet Count 228 k/uL (150-450); RBC 4.98 m/uL (4.30-5.90); RDW 15.1 % (11.5-15.5); WBC 9.6 k/uL (3.8-10.6)
[2021-01-22 21:23] LABS: HGB 15.2 gm/dL (13.0-17.5)
[2021-01-22 21:27] LABS: Albumin 3.8 g/dL (3.5-5.0); Calcium 8.9 mg/dL (8.4-10.2); Magnesium 2.2 mg/dL (1.6-2.3); Potassium 4.5 mmol/L (3.5-5.1); Total Bilirubin 0.7 mg/dL (0.2-1.3); Total Protein 6.3 g/dL (6.3-8.2)
[2021-01-23 06:13] LABS: Glucose,Whole Blood 110 mg/dL (75-99)
[2021-01-23] MEDS: INSULIN ASPART (NovoLOG) 100 UNIT/ML VIAL SQ SCH ×4 (06:19→22:19)
[2021-01-23 07:13] LABS: Basophils % (A) 1 %; Eosinophils % (A) 0 %; HCT 44.8 % (39.0-53.0); HGB 14.9 gm/dL (13.0-17.5); Lymphocytes % (A) 15 %; MCH 31.8 pg (25.0-35.0); MCHC 33.4 g/dL (31.0-37.0); MCV 95.3 fL (80.0-100.0); Mean Platelet Volume 8.1; Monocytes # (A) 0.4 k/uL (0-1.0); Monocytes % (A) 6 %; Neutrophils % (A) 76 %; Platelet Count 219 k/uL (150-450); WBC 6.7 k/uL (3.8-10.6)
[2021-01-23 07:20] LABS: Calcium 8.8 mg/dL (8.4-10.2)
[2021-01-23 07:22] LABS: Potassium 4.8 mmol/L (3.5-5.1)
[2021-01-23] MEDS: IPRATROPIUM-ALBUTEROL 3 ML NEB INHALATION SCH ×3 (08:34→19:41)
[2021-01-23] MEDS: FOLIC ACID 1 MG TAB PO SCH (08:41)
[2021-01-23] MEDS: HEPARIN SODIUM,PORCINE/PF 5,000 UNIT/0.5 ML SYRINGE SQ SCH (08:41)
[2021-01-23] MEDS: TAMSULOSIN 0.4 MG CAP.ER.24H PO SCH ×2 (08:41→19:44)
[2021-01-23] MEDS: methIMAzole 5 MG TAB PO SCH (08:42)
[2021-01-23] MEDS: AMIODARONE 100 MG TAB PO SCH (08:42)
[2021-01-23] MEDS ORDERED: FUROSEMIDE 20 MG TAB PO SCH (09:00)
[2021-01-23] MEDS ORDERED: DILTIAZEM CD 120 MG CAP.ER.24H PO SCH (09:00)
[2021-01-23 11:34] LABS: Glucose,Whole Blood 117 mg/dL (75-99)
[2021-01-23] MEDS: APIXABAN 5 MG TAB PO SCH ×2 (12:02→19:44)
[2021-01-23] MEDS: LACTATED RINGERS 1,000 ML IV SCH (12:11)
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
[2021-01-23 16:44] LABS: Glucose,Whole Blood 93 mg/dL (75-99)
--- NOTE | 2021-01-23 17:29 | ECHOF ---
Referral Reason:AF w/RVR MEASUREMENTS -------- HEIGHT: 180.3 cm WEIGHT: 73.5 kg BP: IVSd: 1.2 cm (0.6 - 1.1) LVIDd: 4.3 cm (3.9 - 5.3) LVPWd: 1.3 cm (0.6 - 1.1) IVSs: 1.4 cm LVIDs: 3.9 cm LVPWs: 1.5 cm Ao Diam: 3.6 cm (2.0 - 3.7) AV Cusp: 2.0 cm (1.5 - 2.6) LA Diam: 3.3 cm (2.7 - 3.8) MV EXCURSION: 14.837 mm (> 18.000) MV EF SLOPE: 71 mm/s (70 - 150) EPSS: 2.6 cm MV E Lucio: 0.32 m/s MV DecT: 307 ms MV A Lucio: 0.69 m/s MV E/A Ratio: 0.47 RAP: 5.00 mmHg RVSP: 21.48 mmHg FINDINGS -------- This was a technically difficult study with suboptimal views. Overall left ventricular systolic function is moderately impaired with, an EF between 35 - 40 %. Hua boptimal test with Lumason. The right ventricle is normal in size. The left atrial size is normal. The right atrial size is normal. Lumason used The aortic valve is trileaflet and appears structurally normal. The mitral valve is normal. There is trace mitral regurgitation. The tricuspid valve appears structurally normal. Trace tricuspid regurgitation present. Right ned tricular systolic pressure is normal at < 35 mmHg. The pulmonic valve was not well visualized. The aortic root size is normal. IVC Not well visulized. There is no pericardial effusion. CONCLUSIONS -------- 1. This was a technically difficult study with suboptimal views. 2. Overall left ventricular systolic function is moderately impaired with, an EF between 35 - 40 %. 3. Suboptimal test with Lumason. Unable to calculate EF. 4. Lumason used 5. There is trace mitral regurgitation. 6. Trace tricuspid regurgitation present. 7. There is no pericardial effusion. HUB INVENTORY SPECIALIST: Wen Lara RDCS
[2021-01-23] MEDS: MONTELUKAST 10 MG TAB PO SCH (19:44)
[2021-01-23 20:19] LABS: Glucose,Whole Blood 134 mg/dL (75-99)
[2021-01-24] MEDS: LACTATED RINGERS 1,000 ML IV SCH ×2 (02:00→16:52)
[2021-01-24] MEDS: INSULIN ASPART (NovoLOG) 100 UNIT/ML VIAL SQ SCH ×3 (05:52→20:54)
[2021-01-24 06:02] LABS: Glucose,Whole Blood 106 mg/dL (75-99)
[2021-01-24 08:15] LABS: Calcium 8.4 mg/dL (8.4-10.2); Potassium 3.6 mmol/L (3.5-5.1)
[2021-01-24] MEDS: IPRATROPIUM-ALBUTEROL 3 ML NEB INHALATION SCH ×3 (08:54→19:44)
[2021-01-24] MEDS: FOLIC ACID 1 MG TAB PO SCH (09:02)
[2021-01-24] MEDS: APIXABAN 5 MG TAB PO SCH ×2 (09:02→19:39)
[2021-01-24] MEDS: TAMSULOSIN 0.4 MG CAP.ER.24H PO SCH ×2 (09:02→19:39)
[2021-01-24] MEDS: methIMAzole 5 MG TAB PO SCH (09:03)
[2021-01-24] MEDS: AMIODARONE 100 MG TAB PO SCH (09:03)
[2021-01-24] MEDS: METOPROLOL TARTRATE 25 MG TAB PO SCH ×2 (09:11→19:40)
--- NOTE | 2021-01-24 09:52 | P.PN ---
Subjective Progress Note Date: 01/24/21 This is a pleasant 75-year-old gentleman with a poor historian. Most of the HPI was obtained from the chart and nursing staff. Patient does have a history of COPD, oxygen dependent at 3 L, prior smoking history, paroxysmal atrial fibrillation, anemia, diabetes, hypertension, history of nephrectomy, GERD, and hepatitis C. Was recently hospitalized last month with COPD exacerbation. He previously resided at [facility] but apparently signed himself out and had been living at home alone recently. According to nursing staff the patient's family had been out of town and found him at home and had apparently not been out of bed for a few days and stopped taking all of his medications. He was noted to have altered mental status. EMS was called and the patient was taken to [facility] and subsequently transferred here to [facility] due to abnormal troponins and episodes of paroxysmal atrial fibrillation with rapid ventricular response. He was initiated on a Cardizem drip. He is currently maintaining sinus mechanism. The patient does not recall history of atrial fibrillation but says at one point he was on Xarelto which has been stopped but he is not sure why. Troponins came back at 0.070 and 0.073 in [place] and subsequent troponins of 0.057 and 0.042 here. Initial BUN and creatinine were 61 and 2.1 respectively. The patient was given IV hydration and renal function showed some improvement with a BUN of 58 and creatinine of 1.63. The patient does say he's been feeling somewhat more short of breath recently but denies any orthopnea, PND or edema. He denies any complaints of chest discomfort, dizziness, palpitations. A gym presentation showed normal sinus rhythm with ST-T wave abnormalities noted in the inferior lateral leads which a ppear new compared to EKG from December 25 of this year. 01/24/2021 Upon examination patient is resting in bed. He is maintaining sinus mechanism. Labs this morning show BUN of 39 creatinine of 1.47. Total signs are stable he is afebrile. A cardiogram with Doppler study done yesterday showed moderately impaired LV systolic function with an ejection fraction between 35-40%. It is unclear if this is new. It is unclear if the patient understands when asked if he's been told if he had a weak heart muscle in the past as he keeps saying that he needs to get up and moved to regain his strength. Objective - Vital Signs Vital signs: Vital Signs Temp 98.4 F 01/24/21 04:00 Pulse 76 01/24/21 09:04 Resp 16 01/24/21 04:00 BP 134/60 01/24/21 04:00 Pulse Ox 98 01/24/21 04:00 Intake & Output 01/23/21 01/24/21 01/24/21 18:59 06:59 18:59 Intake Total 900 240 Output Total 475 300 200 Balance 425 -300 40 Weight 71.4 kg Intake: Intake, IV Titration 300 Amount Lactated Ringers 1,000 ml 300 @ 75 mls/hr IV .[id number] [facility] Rx#:[id number] Oral 600 240 Output: Urine 475 300 200 Other: Voiding Method Urinal Toilet Urinal # Voids 1 - Exam PHYSICAL EXAMINATION: HEENT: Head is atraumatic, normocephalic. Pupils equal, round. Neck is supple. There is no elevated jugular venous pressure. HEART EXAMINATION: Heart sounds regular, S1 and S2 normal. No murmur or gallop heard. CHEST EXAMINATION: Lungs reveal diminished air entry bilaterally with diffuse expiratory wheezing. No chest wall tenderness is noted on palpation or with deep breathing. ABDOMEN: Soft, nontender. Bowel sounds are heard. No organomegaly noted. EXTREMITIES: 1+ peripheral pulses with no evidence of peripheral edema and no calf tenderness noted. NEUROLOGIC patient is awake, alert and oriented x3. . - Labs CBC & Chem 7: 01/23/21 06:41 01/24/21 07:15 Labs: Abnormal Lab Results - Last 24 Hours (Table) 01/23/21 01/23/21 01/24/21 Range/Units 11:33 20:01 05:49 Sodium (137-145) mmol/L BUN (9-20) mg/dL Creatinine (0.66-1.25) mg/dL Glucose (74-99) mg/dL POC Glucose (mg/dL) 117 H 134 H 106 H (75-99) mg/dL 01/24/21 Range/Units 07:15 Sodium 136 L (137-145) mmol/L BUN 39 H (9-20) mg/dL Creatinine 1.47 H (0.66-1.25) mg/dL Glucose 108 H (74-99) mg/dL POC Glucose (mg/dL) (75-99) mg/dL Assessment and Plan Assessment: #1 paroxysmal atrial fibrillation with rapid ventricular response, currently maintaining sinus mechanism #2 acute kidney injury #3 dehydration #4 altered mental status likely secondary to above #5 COPD #6 noncompliance #7 cardiomyopathy, etiology unknown at this time Plan: From cardiology's perspective we will check a free T4 as the patient is on amiodarone and methimazole. Due to the underlying cardiomyopathy we will discontinue the Cardizem and add a beta jerry. We will decrease IV fluids to keep vein open. We'll continue to monitor the renal function and electrolytes and consider adding an DEENA inhibitor in the future. We'll continue to follow the patient right further recommendations accordingly. 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 Patient was seen and examined.
[2021-01-24 11:55] LABS: Glucose,Whole Blood 116 mg/dL (75-99)
--- NOTE | 2021-01-24 13:28 | CDI ---
Documentation Clarification Form Date: 01/24/2021 12:25:20 PM From: Kiki King RN CCDS Admit Date: 01/22/2021 08:02:00 PM Patient Name: Deacon Alejandra Visit Number: [id number] Discharge Date: ATTENTION: The Clinical Documentation Specialists (CDI) and [facility] Coding Staff appreciate your assistance in clarifying documentation. Please respond to the clarification below the line at the bottom and electronically sign. The CDI & [facility] Coding staff will review the response and follow-up if needed. Please note: Queries are made part of the Legal Health Record. If you have any questions, please contact the author of this message via ITS. Dr. George Cm Your patient has the documented symptom of Altered Mental Status 01/23, H&P. Additional clarification regarding the etiology/cause of this symptom is requested. History/Risk Factors: 75-year-old male presents to the ED as a transfer from [facility] after being found barely responsive at home, the patient stopped taking his medications rapidly. Medical History: Atrial Fibrillation, HTN, COPD and DM. Clinical Indicators: Altered mental status metabolic is epileptic probably from dehydration improving with IV fluids. 01/23 H&P. Labs: 01/22 Bun 58; Cr 1.63. Treatment: The patient was given IV hydration 01/23 H&P Please clarify the etiology of the symptom of Altered Mental Status: [ x] Metabolic Encephalopathy due to dehydration. [ ] Other condition (please specify) [ ] Unable to determine (Template Last Revised: July 2020) MTDD
[2021-01-24 16:27] LABS: Glucose,Whole Blood 118 mg/dL (75-99)
--- NOTE | 2021-01-24 16:53 | P.PN ---
Subjective Progress Note Date: 01/24/21 Patient was believed to have dehydration and the patient was barely responsive at home because of which patient was taken to ER. Patient underwent septic workup all of which came back negative. Patient rapidly stopped taking all his medications. Patient was noted to have altered mental status. Patient appears to have baseline dementia presently alert oriented 1. I do not know clearly what his baseline has. Patient is found to have mildly elevated troponins and a had episodes of proximal A. fib with rapid ventricular rate troponins and echo was 0.07 and 0.073 and now came down to 0.05, initial creatinine was 2.1 after dietary hydration it came down to 1.63 baseline creatinine appears to be around 1.4 EKG showed sinus rhythm without any acute ST-T wave abnormalities. 01/24/2021 Patient is evaluated today at the bedside, he is sitting up in a chair. Patient is not on any acute distress alert and oriented 3, appropriate. Patient denies any chest pain, cough, shortness of breath. He states that his breathing is much improved. Patient is working with physical therapy, who is recommending subacute rehab on discharge. Patient was at [facility], signed himself out AMA and went home for a few days. The patient's son found him in bed and that the patient was unable to care for himself at this time. Patient does have a history of atrial fibrillation, he has been resumed on amiodarone, eliquis, all other home medications have been resumed as appropriate. Patient was evaluated by cardiology services. Echocardiogram revealed an ejection fraction of 35-40%, trace mitral regurg, trace tricuspid regurgitation. Once medically stable, patient will be discharged to a rehab facility. Vital signs are stable today, afebrile, sinus bradycardia 56, blood pressure 124/78, 100% on 2 L nasal cannula. ROS: Constitutional: Denied any fatigue denied any fever. Cardio vascular: denied any chest pain, palpitations Gastrointestinal denied any nausea vomiting Pulmonary: Denied any shortness of breath cough Neurologic denied any new focal deficits All inpatient medications were reviewed and appropriate changes in these medications as dictated in the interval history and assessment and plan. PHYSICAL EXAMINATION: GENERAL: The patient is alert and oriented x3, not in any acute distress. Well developed, well nourished. HEENT: Pupils are round and equally reacting to light. EOMI. sclerae are icteric bilateral, yellowish drainage and crust noted. CARDIOVASCULAR: S1 and S2 present. No murmurs, rubs, or gallops. PULMONARY: Chest is clear to auscultation, no wheezing or crackles. ABDOMEN: Soft, nontender, nondistended, normoactive bowel sounds. No palpable organomegaly. MUSCULOSKELETAL: No joint swelling or deformity. EXTREMITIES: No cyanosis, clubbing, or pedal edema. NEUROLOGICAL: Gross neurological examination did not reveal any focal deficits. SKIN: No rashes. Assessment and plan -Altered mental status due to metabolic encephalopathy -metabolic encephalopathy from dehydration improving with IV fluids. Patient appears to have some baseline dementia. Improved alert and oriented 3 today. -Acute renal failure secondary to dehydration and prerenal azotemia from dehydration, creatinine improving 1.47 today we'll continue with hydration. -Chronic kidney disease stage III, probably from diabetic nephropathy, -Paroxysmal A. fib with RVR, maintained on eliquis, patient is in normal sinus rhythm at this time -COPD without any acute exacerbation cont on duonebs, patient wears home oxygen -Type 2 diabetes mellitus, controlled, maintained on long-acting insulin -Systolic congestive heart failure, unsure whether acute or chronic, patient is a poor historian. Current ejection fraction 35-40%. Followed by cardiology. -Left eye bacterial conjunctivitis - eyedrops ordered -Tobacco use, counseled on cessation. DVT prophylaxis: Patient is on Eliquis for Atrial fibrillation which will be continued Patient is alert and oriented 3 today, it appears altered mental status has improved with hydration. Patient creatinine is trending downwards, will repeat in the morning. Continue with IV fluids, decreased to KVO. paroxysmal atrial fibrillation, in normal sinus rhythm continue all current cardiac medications at this time, discontinue Cardizem, beta jerry added today. Patient was recommended for subacute rehab, pending placement once medically clear. Objective - Vital Signs Vital signs: Vital Signs Temp 97.6 F 01/24/21 08:00 Pulse 52 L 01/24/21 14:00 Resp 16 01/24/21 14:00 BP 124/78 01/24/21 12:00 Pulse Ox 100 01/24/21 12:00 Intake & Output 01/23/21 01/24/21 01/24/21 18:59 06:59 18:59 Intake Total 900 480 Output Total 475 300 200 Balance 425 -300 280 Weight 71.4 kg Intake: Intake, IV Titration 300 Amount Lactated Ringers 1,000 ml 300 @ 75 mls/hr IV .[id number] [facility] Rx#:[id number] Oral 600 480 Output: Urine 475 300 200 Other: Voiding Method Urinal Toilet Toilet Urinal Urinal # Voids 1 - Labs CBC & Chem 7: 01/23/21 06:41 01/24/21 07:15 Labs: Abnormal Lab Results - Last 24 Hours (Table) 01/23/21 01/24/21 01/24/21 Range/Units 20:01 05:49 07:15 Sodium 136 L (137-145) mmol/L BUN 39 H (9-20) mg/dL Creatinine 1.47 H (0.66-1.25) mg/dL Glucose 108 H (74-99) mg/dL POC Glucose (mg/dL) 134 H 106 H (75-99) mg/dL 01/24/21 01/24/21 Range/Units 11:54 16:25 Sodium (137-145) mmol/L BUN (9-20) mg/dL Creatinine (0.66-1.25) mg/dL Glucose (74-99) mg/dL POC Glucose (mg/dL) 116 H 118 H (75-99) mg/dL Assessment and Plan Time with Patient: Greater than 30
[2021-01-24] MEDS: MONTELUKAST 10 MG TAB PO SCH (19:40)
[2021-01-24] MEDS: MELATONIN 3 MG TABLET PO PRN (19:40)
[2021-01-24 19:59] LABS: Glucose,Whole Blood 113 mg/dL (75-99)
[2021-01-24] MEDS: POLYMYXIN B-TRIMETHOPRIM SULF (10,000-1) OPHTH DROPS 10 ML BTL BOTH EYES SCH ×2 (21:58→23:27)
[2021-01-25] MEDS: POLYMYXIN B-TRIMETHOPRIM SULF (10,000-1) OPHTH DROPS 10 ML BTL BOTH EYES SCH ×5 (03:57→22:55)
[2021-01-25] MEDS: LACTATED RINGERS 1,000 ML IV SCH ×2 (05:35→17:55)
[2021-01-25 06:05] LABS: Glucose,Whole Blood 105 mg/dL (75-99)
[2021-01-25] MEDS: INSULIN ASPART (NovoLOG) 100 UNIT/ML VIAL SQ SCH ×4 (06:05→22:56)
[2021-01-25 07:37] LABS: Potassium 4.4 mmol/L (3.5-5.1)
[2021-01-25] MEDS: IPRATROPIUM-ALBUTEROL 3 ML NEB INHALATION SCH ×3 (07:53→19:21)
[2021-01-25] MEDS: METOPROLOL TARTRATE 25 MG TAB PO SCH ×2 (09:29→21:04)
[2021-01-25] MEDS: FOLIC ACID 1 MG TAB PO SCH (09:29)
[2021-01-25] MEDS: TAMSULOSIN 0.4 MG CAP.ER.24H PO SCH ×2 (09:29→21:04)
[2021-01-25] MEDS: methIMAzole 5 MG TAB PO SCH (09:30)
[2021-01-25] MEDS: APIXABAN 5 MG TAB PO SCH ×2 (09:30→21:05)
[2021-01-25] MEDS: AMIODARONE 100 MG TAB PO SCH (09:30)
[2021-01-25 11:37] LABS: Glucose,Whole Blood 98 mg/dL (75-99)
[2021-01-25] MEDS: FAMOTIDINE 20 MG TAB PO SCH ×2 (13:11→21:04)
[2021-01-25] MEDS: DOXYCYCLINE 100 MG CAP PO SCH ×2 (13:11→22:55)
--- NOTE | 2021-01-25 13:47 | P.PN ---
Subjective Patient was believed to have dehydration and the patient was barely responsive at home because of which patient was taken to ER. Patient underwent septic workup all of which came back negative. Patient rapidly stopped taking all his medications. Patient was noted to have altered mental status. Patient appears to have baseline dementia presently alert oriented 1. I do not know clearly what his baseline has. Patient is found to have mildly elevated troponins and a had episodes of proximal A. fib with rapid ventricular rate troponins and echo was 0.07 and 0.073 and now came down to 0.05, initial creatinine was 2.1 after dietary hydration it came down to 1.63 baseline creatinine appears to be around 1.4 EKG showed sinus rhythm without any acute ST-T wave abnormalities. 01/24/2021 Patient is evaluated today at the bedside, he is sitting up in a chair. Patient is not on any acute distress alert and oriented 3, appropriate. Patient denies any chest pain, cough, shortness of breath. He states that his breathing is much improved. Patient is working with physical therapy, who is recommending subacute rehab on discharge. Patient was at [facility], signed himself out AMA and went home for a few days. The patient's son found him in bed and that the patient was unable to care for himself at this time. Patient does have a history of atrial fibrillation, he has been resumed on amiodarone, eliquis, all other home medications have been resumed as appropriate. Patient was evaluated by cardiology services. Echocardiogram revealed an ejection fraction of 35-40%, trace mitral regurg, trace tricuspid regurgitation. Once medically stable, patient will be discharged to a rehab facility. Vital signs are stable today, afebrile, sinus bradycardia 56, blood pressure 124/78, 100% on 2 L nasal cannula. 01/25/2021 Patient looks much better today patient is awake alert and oriented 2-3 which appears to be his baseline patient is awaiting disposition to subacute rehabilitation. IV fluids will be discontinued Constitutional: Denied any fatigue denied any fever. Cardio vascular: denied any chest pain, palpitations Gastrointestinal denied any nausea vomiting Pulmonary: Denied any shortness of breath cough Neurologic denied any new focal deficits All inpatient medications were reviewed and appropriate changes in these medications as dictated in the interval history and assessment and plan. PHYSICAL EXAMINATION: GENERAL: The patient is alert and oriented x3, not in any acute distress. Well developed, well nourished. HEENT: Pupils are round and equally reacting to light. EOMI. sclerae are icteric bilateral, yellowish drainage and crust noted. CARDIOVASCULAR: S1 and S2 present. No murmurs, rubs, or gallops. PULMONARY: Chest is clear to auscultation, no wheezing or crackles. ABDOMEN: Soft, nontender, nondistended, normoactive bowel sounds. No palpable organomegaly. MUSCULOSKELETAL: No joint swelling or deformity. EXTREMITIES: No cyanosis, clubbing, or pedal edema. NEUROLOGICAL: Gross neurological examination did not reveal any focal deficits. SKIN: No rashes. Assessment and plan -Altered mental status due to metabolic encephalopathy -metabolic encephalopathy from dehydration improving with IV fluids. Patient appears to have some baseline dementia. Improved alert and oriented 3 today. -Acute renal failure secondary to dehydration and prerenal azotemia from dehydration, creatinine improving 1.47 today we'll continue with hydration. -Chronic kidney disease stage III, probably from diabetic nephropathy, -Paroxysmal A. fib with RVR, maintained on eliquis, patient is in normal sinus rhythm at this time -COPD without any acute exacerbation cont on duonebs, patient wears home oxygen -Type 2 diabetes mellitus, controlled, maintained on long-acting insulin -Systolic congestive heart failure, unsure whether acute or chronic, patient is a poor historian. Current ejection fraction 35-40%. Followed by cardiology. -Left eye bacterial conjunctivitis - eyedrops ordered -Tobacco use, counseled on cessation. DVT prophylaxis: Patient is on Eliquis for Atrial fibrillation which will be continued Patient is alert and oriented 3 today, it appears altered mental status has improved with hydration. Patient creatinine is trending downwards, will repeat in the morning. Continue with IV fluids, decreased to KVO. paroxysmal atrial fibrillation, in normal sinus rhythm continue all current cardiac medications at this time, discontinue Cardizem, beta jerry added today. Patient was recommended for subacute rehab, pending placement once medically clear. Objective - Vital Signs Vital signs: Vital Signs Temp 98 F 01/25/21 13:09 Pulse 65 01/25/21 13:09 Resp 20 01/25/21 13:09 BP 104/59 01/25/21 13:09 Pulse Ox 99 01/25/21 13:09 Intake & Output 01/24/21 01/25/2121 18:59 06:59 18:59 Intake Total 680 Output Total 200 200 775 Balance 018 -840 -779 Weight 71.8 kg Intake: Oral 680 Output: Urine 200 200 775 Other: Voiding Method Toilet Toilet Toilet Urinal Urinal Urinal # Voids 1 1 - Labs CBC & Chem 7: 01/23/21 06:41 01/25/21 06:51 Labs: Abnormal Lab Results - Last 24 Hours (Table) 01/24/21 01/24/21 01/25/21 Range/Units 16:25 19:57 06:03 BUN (9-20) mg/dL Creatinine (0.66-1.25) mg/dL Glucose (74-99) mg/dL POC Glucose (mg/dL) 118 H 113 H 105 H (75-99) mg/dL 01/25/21 Range/Units 06:51 BUN 25 H (9-20) mg/dL Creatinine 1.41 H (0.66-1.25) mg/dL Glucose 104 H (74-99) mg/dL POC Glucose (mg/dL) (75-99) mg/dL
--- NOTE | 2021-01-25 14:30 | P.PN ---
Subjective HISTORY OF PRESENTING ILLNESS This is a pleasant 75-year-old gentleman with a poor historian. Most of the HPI was obtained from the chart and nursing staff. Patient does have a history of COPD, oxygen dependent at 3 L, prior smoking history, paroxysmal atrial fibrillation, anemia, diabetes, hypertension, history of nephrectomy, GERD, and hepatitis C. Was recently hospitalized last month with COPD exacerbation. He previously resided at [facility] [place] but apparently signed himself out and had been living at home alone recently. According to nursing staff the patient's family had been out of town and found him at home and had apparently not been out of bed for a few days and stopped taking all of his medications. He was noted to have altered mental status. EMS was called and the patient was taken to [facility] and subsequently transferred here to [facility] due to abnormal troponins and episodes of paroxysmal atrial fibrillation with rapid ventricular response. He was initiated on a Cardizem drip. He is currently maintaining sinus mechanism. The patient does not recall history of atrial fibrillation but says at one point he was on Xarelto which has been stopped but he is not sure why. Troponins came back at 0.070 and 0.073 in [place] and subsequent troponins of 0.057 and 0.042 here. Initial BUN and creatinine were 61 and 2.1 respectively. The patient was given IV hydration and renal function showed some improvement with a BUN of 58 and creatinine of 1.63. The patient does say he's been feeling somewhat more short of breath recently but denies any orthopnea, PND or edema. He denies any complaints of chest discomfort, dizziness, palpitations. A gym presentation showed normal sinus rhythm with ST-T wave abnormalities noted in the inferior lateral leads which appear new compared to EKG from December 25 of this year. 01/24/2021 Upon examination patient is resting in bed. He is maintaining sinus mechanism. Labs this morning show BUN of 39 creatinine of 1.47. Total signs are stable he is afebrile. A cardiogram with Doppler study done yesterday showed moderately impaired LV systolic function with an ejection fraction between 35-40%. It is unclear if this is new. It is unclear if the patient understands when asked if he's been told if he had a weak heart muscle in the past as he keeps saying that he needs to get up and moved to regain his strength. 01/25 Patient seen and examined. Patient states his breathing is somewhat improved. He denies any chest pain or pressure. PHYSICAL EXAMINATION Vital signs reviewed. CONSTITUTIONAL: No apparent distress. HEENT: Head is normocephalic. Pupils are equal, round. Sclerae anicteric. Mucous membranes of the mouth are moist. No JVD. No carotid bruit. CHEST EXAMINATION: Lungs are clear to auscultation. No chest wall tenderness is noted on palpation or with deep breathing. HEART EXAMINATION: Regular rate and rhythm. S1, S2 heard. No murmurs, gallops or rub. ABDOMEN: Soft, nontender. Positive bowel sounds. EXTREMITIES: 2+ peripheral pulses, no lower extremity edema and no calf tenderness. NEUROLOGIC EXAMINATION: Patient is awake, alert and oriented x3. ASSESSMENT #1 paroxysmal atrial fibrillation with rapid ventricular response, currently maintaining sinus mechanism #2 acute kidney injury #3 dehydration #4 altered mental status likely secondary to above #5 COPD #6 noncompliance #7 cardiomyopathy, etiology unknown at this time Plan: Blood pressure is currently borderline, systolics in the 100s. He has been on metoprolol 25 mg twice a day and no DEENA inhibitor given acute kidney injury, creatinine mildly improved 1.41 down from 1.47. His free T4 yesterday was 1.6 on methimazole. Unclear if patient is good interventional candidate at this time. No signs of acute coronary syndrome. Continue to treat medically, optimize heart failure regimen, possible home in the next 24-48 hours if remains stable. Objective - Vital Signs Vital signs: Vital Signs Temp 98 F 01/25/21 13:09 Pulse 65 01/25/21 13:09 Resp 20 01/25/21 13:09 BP 104/59 01/25/21 13:09 Pulse Ox 99 01/25/21 13:09 Intake & Output 01/24/21 01/25/21 01/25/21 18:59 06:59 18:59 Intake Total 680 0 Output Total 200 200 775 Balance 480 -200 -775 Weight 71.8 kg Intake: Oral 680 0 Output: Urine 200 200 775 Other: Voiding Method Toilet Toilet Toilet Urinal Urinal Urinal # Voids 1 1 - Labs CBC & Chem 7: 01/23/21 06:41 01/25/21 06:51 Labs: Abnormal Lab Results - Last 24 Hours (Table) 01/24/21 01/24/21 01/25/21 Range/Units 16:25 19:57 06:03 BUN (9-20) mg/dL Creatinine (0.66-1.25) mg/dL Glucose (74-99) mg/dL POC Glucose (mg/dL) 118 H 113 H 105 H (75-99) mg/dL 01/25/21 Range/Units 06:51 BUN 25 H (9-20) mg/dL Creatinine 1.41 H (0.66-1.25) mg/dL Glucose 104 H (74-99) mg/dL POC Glucose (mg/dL) (75-99) mg/dL
[2021-01-25 16:38] LABS: Glucose,Whole Blood 102 mg/dL (75-99)
[2021-01-25] MEDS: BUDESONIDE 0.5 MG/2 ML NEBU INHALATION SCH (19:21)
[2021-01-25 20:26] LABS: Glucose,Whole Blood 100 mg/dL (75-99)
[2021-01-25] MEDS: MONTELUKAST 10 MG TAB PO SCH (21:04)
[2021-01-25] MEDS: MELATONIN 3 MG TABLET PO PRN (21:05)
[2021-01-26] MEDS: POLYMYXIN B-TRIMETHOPRIM SULF (10,000-1) OPHTH DROPS 10 ML BTL BOTH EYES SCH ×6 (00:36→21:03)
[2021-01-26 06:19] LABS: Glucose,Whole Blood 90 mg/dL (75-99)
[2021-01-26] MEDS: BUDESONIDE 0.5 MG/2 ML NEBU INHALATION SCH ×2 (07:38→21:26)
[2021-01-26] MEDS: IPRATROPIUM-ALBUTEROL 3 ML NEB INHALATION SCH ×3 (07:38→21:26)
--- NOTE | 2021-01-26 08:33 | P.PN ---
Subjective Patient was believed to have dehydration and the patient was barely responsive at home because of which patient was taken to ER. Patient underwent septic workup all of which came back negative. Patient rapidly stopped taking all his medications. Patient was noted to have altered mental status. Patient appears to have baseline dementia presently alert oriented 1. I do not know clearly what his baseline has. Patient is found to have mildly elevated troponins and a had episodes of proximal A. fib with rapid ventricular rate troponins and echo was 0.07 and 0.073 and now came down to 0.05, initial creatinine was 2.1 after dietary hydration it came down to 1.63 baseline creatinine appears to be around 1.4 EKG showed sinus rhythm without any acute ST-T wave abnormalities. 01/24/2021 Patient is evaluated today at the bedside, he is sitting up in a chair. Patient is not on any acute distress alert and oriented 3, appropriate. Patient denies any chest pain, cough, shortness of breath. He states that his breathing is much improved. Patient is working with physical therapy, who is recommending subacute rehab on discharge. Patient was at [facility], signed himself out AMA and went home for a few days. The patient's son found him in bed and that the patient was unable to care for himself at this time. Patient does have a history of atrial fibrillation, he has been resumed on amiodarone, eliquis, all other home medications have been resumed as appropriate. Patient was evaluated by cardiology services. Echocardiogram revealed an ejection fraction of 35-40%, trace mitral regurg, trace tricuspid regurgitation. Once medically stable, patient will be discharged to a rehab facility. Vital signs are stable today, afebrile, sinus bradycardia 56, blood pressure 124/78, 100% on 2 L nasal cannula. 01/25/2021 Patient looks much better today patient is awake alert and oriented 2-3 which appears to be his baseline patient is awaiting disposition to subacute rehabilitation. IV fluids will be discontinued 01/26/2021 Procedure overnight events patient is still having some wheeze and rhonchi. Continue with inhalational steroids and inhalational treatments. Patient is not on oxygen at this time. Constitutional: Denied any fatigue denied any fever. Cardio vascular: denied any chest pain, palpitations Gastrointestinal denied any nausea vomiting Pulmonary: Denied any shortness of breath cough Neurologic denied any new focal deficits All inpatient medications were reviewed and appropriate changes in these me dications as dictated in the interval history and assessment and plan. PHYSICAL EXAMINATION: GENERAL: The patient is alert and oriented x3, not in any acute distress. Well developed, well nourished. HEENT: Pupils are round and equally reacting to light. EOMI. sclerae are icteric bilateral, yellowish drainage and crust noted. CARDIOVASCULAR: S1 and S2 present. No murmurs, rubs, or gallops. PULMONARY: Chest is clear to auscultation, no wheezing or crackles. ABDOMEN: Soft, nontender, nondistended, normoactive bowel sounds. No palpable organomegaly. MUSCULOSKELETAL: No joint swelling or deformity. EXTREMITIES: No cyanosis, clubbing, or pedal edema. NEUROLOGICAL: Gross neurological examination did not reveal any focal deficits. SKIN: No rashes. Assessment and plan -Altered mental status due to metabolic encephalopathy -metabolic encephalopathy from dehydration proved with IV fluids. Patient appears to have some baseline dementia. Improved alert and oriented 2-3 today. 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 fib with RVR, maintained on eliquis, patient is in normal sinus rhythm at this time -COPD without any acute exacerbation cont on duonebs, patient wears home oxygen -Type 2 diabetes mellitus, controlled, maintained on long-acting insulin -Systolic congestive heart failure, unsure whether acute or chronic, patient is a poor historian. Current ejection fraction 35-40%. Followed by cardiology. -Left eye bacterial conjunctivitis - eyedrops ordered -Tobacco use, counseled on cessation. DVT prophylaxis: Patient is on Eliquis for Atrial fibrillation which will be c ontinued Patient is alert and oriented 3 today, it appears altered mental status has improved with hydration. His creatinine is stable and is around 1.4 for this is probably his baseline paroxysmal atrial fibrillation, in normal sinus rhythm continue all current cardiac medications at this time, discontinue Cardizem, beta jerry added today. Patient was recommended for subacute rehab, pending placement once medically clear. Objective - Vital Signs Vital signs: Vital Signs Temp 99.1 F 01/26/21 04:00 Pulse 66 01/26/21 07:48 Resp 18 01/26/21 04:00 BP 143/80 01/26/21 04:00 Pulse Ox 95 01/26/21 04:00 Intake & Output 01/25/21 01/26/21 01/26/21 18:59 06:59 18:59 Intake Total 240 Output Total 975 650 Balance -735 -650 Weight 71 kg Intake: Oral 240 Output: Urine 975 650 Other: Voiding Method Toilet Toilet Urinal Urinal - Labs CBC & Chem 7: 01/23/21 06:41 01/25/21 06:51 Labs: Abnormal Lab Results - Last 24 Hours (Table) 01/25/21 01/25/21 Range/Units 16:36 20:24 POC Glucose (mg/dL) 102 H 100 H (75-99) mg/dL
[2021-01-26] MEDS: APIXABAN 5 MG TAB PO SCH ×2 (09:52→21:02)
[2021-01-26] MEDS: FOLIC ACID 1 MG TAB PO SCH (09:52)
[2021-01-26] MEDS: AMIODARONE 100 MG TAB PO SCH (09:52)
[2021-01-26] MEDS: INSULIN ASPART (NovoLOG) 100 UNIT/ML VIAL SQ SCH ×4 (09:52→20:49)
[2021-01-26] MEDS: methIMAzole 5 MG TAB PO SCH (09:52)
[2021-01-26] MEDS: DOXYCYCLINE 100 MG CAP PO SCH (09:52)
[2021-01-26] MEDS: TAMSULOSIN 0.4 MG CAP.ER.24H PO SCH ×2 (09:53→21:02)
[2021-01-26] MEDS: FAMOTIDINE 20 MG TAB PO SCH ×2 (09:53→21:01)
[2021-01-26] MEDS: METOPROLOL TARTRATE 25 MG TAB PO SCH ×2 (09:53→21:01)
--- NOTE | 2021-01-26 10:48 | P.PN ---
Subjective HISTORY OF PRESENTING ILLNESS This is a pleasant 75-year-old gentleman with a poor historian. Most of the HPI was obtained from the chart and nursing staff. Patient does have a history of COPD, oxygen dependent at 3 L, prior smoking history, paroxysmal atrial fibrillation, anemia, diabetes, hypertension, history of nephrectomy, GERD, and hepatitis C. Was recently hospitalized last month with COPD exacerbation. He previously resided at [facility] but apparently signed himself out and had been living at home alone recently. According to nursing staff the patient's family had been out of town and found him at home and had apparently not been out of bed for a few days and stopped taking all of his medications. He was noted to have altered mental status. EMS was called and the patient was taken to [facility] and subsequently transferred here to [facility] due to abnormal troponins and episodes of paroxysmal atrial fibrillation with rapid ventricular response. He was initiated on a Cardizem drip. He is currently maintaining sinus mechanism. The patient does not recall history of atrial fibrillation but says at one point he was on Xarelto which has been stopped but he is not sure why. Troponins came back at 0.070 and 0.073 in [place] and subsequent troponins of 0.057 and 0.042 here. Initial BUN and creatinine were 61 and 2.1 respectively. The patient was given IV hydration and renal function showed some improvement with a BUN of 58 and creatinine of 1.63. The patient does say he's been feeling somewhat more short of breath recently but denies any orthopnea, PND or edema. He denies any complaints of chest discomfort, dizziness, palpitations. A gym presentation showed normal sinus rhythm with ST-T wave abnormalities noted in the inferior lateral leads which appear new compared to EKG from December 25 of this year. 01/24/2021 Upon examination patient is resting in bed. He is maintaining sinus mechanism. Labs this morning show BUN of 39 creatinine of 1.47. Total signs are stable he is afebrile. A cardiogram with Doppler study done yesterday showed moderately impaired LV systolic function with an ejection fraction between 35-40%. It is unclear if this is new. It is unclear if the patient understands when asked if he's been told if he had a weak heart muscle in the past as he keeps saying that he needs to get up and moved to regain his strength. 01/25 Patient seen and examined. Patient states his breathing is somewhat improved. He denies any chest pain or pressure. 01/26 Patient seen and examined. Patient denies any chest pain or pressure. He is still is wheezing on exam. States his breathing feels similar however slowly improving. Pressures dominantly stable systolics 110s to 140s. PHYSICAL EXAMINATION Vital signs reviewed. CONSTITUTIONAL: No apparent distress. HEENT: Head is normocephalic. Pupils are equal, round. Sclerae anicteric. Mucous membranes of the mouth are moist. No JVD. No carotid bruit. CHEST EXAMINATION: Lungs are clear to auscultation. No chest wall tenderness is noted on palpation or with deep breathing. HEART EXAMINATION: Regular rate and rhythm. S1, S2 heard. No murmurs, gallops or rub. ABDOMEN: Soft, nontender. Positive bowel sounds. EXTREMITIES: 2+ peripheral pulses, no lower extremity edema and no calf tendern ess. NEUROLOGIC EXAMINATION: Patient is awake, alert and oriented x3. ASSESSMENT #1 paroxysmal atrial fibrillation with rapid ventricular response, currently maintaining sinus mechanism #2 acute kidney injury #3 dehydration #4 altered mental status likely secondary to above #5 COPD #6 noncompliance #7 cardiomyopathy, etiology unknown at this time Plan: Optimize heart failure regimen as able. Add low-dose losartan and monitor creatinine. Unclear if patient is ideal interventional candidate given multiple medical comorbidities, chronic kidney disease however may consider ischemic workup as an outpatient. Objective - Vital Signs Vital signs: Vital Signs Temp 97.6 F 01/26/21 09:47 Pulse 65 01/26/21 09:47 Resp 16 01/26/21 09:47 BP 116/55 01/26/21 09:47 Pulse Ox 96 01/26/21 09:47 Intake & Output 01/25/21 01/26/21 01/26/21 18:59 06:59 18:59 Intake Total 240 240 Output Total 975 650 Balance -735 -650 240 Weight 71 kg Intake: Oral 240 240 Output: Urine 975 650 Other: Voiding Method Toilet Toilet Urinal Urinal # Voids 1 - Labs CBC & Chem 7: 01/23/21 06:41 01/25/21 06:51 Labs: Abnormal Lab Results - Last 24 Hours (Table) 01/25/21 01/25/21 Range/Units 16:36 20:24 POC Glucose (mg/dL) 102 H 100 H (75-99) mg/dL
[2021-01-26 11:39] LABS: Glucose,Whole Blood 107 mg/dL (75-99)
[2021-01-26] MEDS: LOSARTAN 25 MG TAB PO SCH (11:53)
[2021-01-26 16:25] LABS: Glucose,Whole Blood 128 mg/dL (75-99)
[2021-01-26] MEDS: LACTATED RINGERS 1,000 ML IV SCH (16:53)
[2021-01-26 20:06] LABS: Glucose,Whole Blood 115 mg/dL (75-99)
[2021-01-26] MEDS: MONTELUKAST 10 MG TAB PO SCH (21:02)
[2021-01-27] MEDS: POLYMYXIN B-TRIMETHOPRIM SULF (10,000-1) OPHTH DROPS 10 ML BTL BOTH EYES SCH ×4 (01:33→11:47)
[2021-01-27 05:59] LABS: Glucose,Whole Blood 102 mg/dL (75-99)
[2021-01-27] MEDS: INSULIN ASPART (NovoLOG) 100 UNIT/ML VIAL SQ SCH ×2 (06:02→11:47)
[2021-01-27 06:32] LABS: Calcium 9.2 mg/dL (8.4-10.2)
[2021-01-27] MEDS: IPRATROPIUM-ALBUTEROL 3 ML NEB INHALATION SCH ×2 (08:26→12:43)
[2021-01-27] MEDS: BUDESONIDE 0.5 MG/2 ML NEBU INHALATION SCH (08:31)
[2021-01-27] MEDS ORDERED: AMIODARONE 200 MG TAB PO SCH (09:00)
[2021-01-27] MEDS: LOSARTAN 25 MG TAB PO SCH (09:44)
[2021-01-27] MEDS: FOLIC ACID 1 MG TAB PO SCH (09:45)
[2021-01-27] MEDS: methIMAzole 5 MG TAB PO SCH (09:45)
[2021-01-27] MEDS: METOPROLOL TARTRATE 25 MG TAB PO SCH (09:45)
[2021-01-27] MEDS: DOXYCYCLINE 100 MG CAP PO SCH (09:45)
[2021-01-27] MEDS: APIXABAN 5 MG TAB PO SCH (09:46)
--- NOTE | 2021-01-27 11:00 | P.PN ---
Subjective HISTORY OF PRESENTING ILLNESS This is a pleasant 75-year-old gentleman with a poor historian. Most of the HPI was obtained from the chart and nursing staff. Patient does have a history of COPD, oxygen dependent at 3 L, prior smoking history, paroxysmal atrial fibrillation, anemia, diabetes, hypertension, history of nephrectomy, GERD, and hepatitis C. Was recently hospitalized last month with COPD exacerbation. He previously resided at [facility] but apparently signed himself out and had been living at home alone recently. According to nursing staff the patient's family had been out of town and found him at home and had apparently not been out of bed for a few days and stopped taking all of his medications. He was noted to have altered mental status. EMS was called and the patient was taken to [facility] and subsequently transferred here to [facility] due to abnormal troponins and episodes of paroxysmal atrial fibrillation with rapid ventricular response. He was initiated on a Cardizem drip. He is currently maintaining sinus mechanism. The patient does not recall history of atrial fibrillation but says at one point he was on Xarelto which has been stopped but he is not sure why. Troponins came back at 0.070 and 0.073 in [place] and subsequent troponins of 0.057 and 0.042 here. Initial BUN and creatinine were 61 and 2.1 respectively. The patient was given IV hydration and renal function showed some improvement with a BUN of 58 and creatinine of 1.63. The patient does say he's been feeling somewhat more short of breath recently but denies any orthopnea, PND or edema. He denies any complaints of chest discomfort, dizziness, palpitations. 01/27/2021 Pt seen and examined sitting up in the recliner undergoing a breathing treatment. He is coughing with no significant sputum production. He denies chest pain, shortness of breath, dizziness or palpitations. Blood pressure 139/60 heart rate 61 afebrile and maintaining oxygen saturation on nasal cannula. Laboratory data reviewed, sodium 138, potassium 4.0, creatinine 1.6. Currently maintained on amiodarone 100 mg daily, Eliquis 5 mg twice a day, losartan 12.5 mg daily and Lopressor 25 mg twice a day. Telemetry tracings reviewed, he continues to maintain sinus mechanism. PHYSICAL EXAMINATION CONSTITUTIONAL: No apparent distress. HEENT: Head is normocephalic. Pupils are equal, round. Sclerae anicteric. Mucous membranes of the mouth are moist. No JVD. No carotid bruit. CHEST EXAMINATION: Lungs are clear to auscultation. No chest wall tenderness is noted on palpation or with deep breathing. HEART EXAMINATION: Regular rate and rhythm. S1, S2 heard. No murmurs, gallops or rub. EXTREMITIES: 2+ peripheral pulses, no lower extremity edema and no calf tenderness. ASSESSMENT Paroxysmal atrial fibrillation with rapid ventricular response, currently maintaining sinus mechanism Acute kidney injury Dehydration Altered mental status likely secondary to above COPD Medical noncompliance Cardiomyopathy, etiology unknown at this time Plan Increase amiodarone to 200 mg daily to ensure he maintains SR. Further ischemic work-up as an outpatient. Stable for discharge from a cardiac perspective, follow up with Dr. Le in 1- 2 weeks. Nurse Practitioner note has been reviewed, I agree with a documented findings and plan of care. Patient was seen and examined. Objective - Vital Signs Vital signs: Vital Signs Temp 98.3 F 01/27/21 04:00 Pulse 68 01/27/21 08:31 Resp 16 01/27/21 04:00 BP 110/59 01/27/21 04:00 Pulse Ox 95 01/27/21 04:00 Intake & Output 01/26/21 01/27/21 01/27/21 18:59 06:59 18:59 Intake Total 2400 Output Total 500 Balance 2400 -500 Weight 71.5 kg Intake: Oral 2400 Output: Urine 500 Other: Voiding Method Toilet Toilet Urinal Urinal # Voids 4 - Labs CBC & Chem 7: 01/23/21 06:41 01/27/21 05:27 Labs: Abnormal Lab Results - Last 24 Hours (Table) 01/26/21 01/26/21 01/26/21 Range/Units 11:38 16:23 20:05 Creatinine (0.66-1.25) mg/dL POC Glucose (mg/dL) 107 H 128 H 115 H (75-99) mg/dL 01/27/21 01/27/21 Range/Units 05:27 05:57 Creatinine 1.60 H (0.66-1.25) mg/dL POC Glucose (mg/dL) 102 H (75-99) mg/dL
[2021-01-27] MEDS: FAMOTIDINE 20 MG TAB PO SCH (11:40)
[2021-01-27] MEDS: TAMSULOSIN 0.4 MG CAP.ER.24H PO SCH (11:44)
[2021-01-27 11:45] VITALS: BP 125/71; RESP 18; TEMP 98
[2021-01-27 11:48] LABS: Glucose,Whole Blood 102 mg/dL (75-99)
[2021-01-27 12:56] VITALS: PULSE 62
--- NOTE | 2021-01-28 08:57 | P.DS ---
Providers Date of admission: 01/22/21 20:02 Expected date of discharge: 01/27/21 Attending physician: George Cm Consults: 01/22/21 20:28 Consult Physician Stat Consulting Provider: Eloisa Snider Consult Reason/Comments: afib with RVR Do you want consulting provider notified?: Yes Primary care physician: George Cm Hospital Course: Final diagnosis -Altered mental status due to metabolic encephalopathy -metabolic encephalopathy from dehydration. 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 fib with RVR, maintained on eliquis, patient is in normal sinus rhythm at this time -COPD without any acute exacerbation -Type 2 diabetes mellitus, controlled -Systolic congestive heart failure, unsure whether acute or chronic, patient is a poor historian. Current ejection fraction 35-40%. -Left eye bacterial conjunctivitis -Tobacco use, counseled on cessation. -DVT prophylaxis Discharge disposition Patient is being discharged in a stable condition with guarded prognosis to home. Patient will follow-up with Dr. quinonez cardiology upon discharge. Patient also follow-up with primary care provider upon discharge. Patient will continue with a short course of oral antibiotics in the form of doxycycline twice daily for the next one week to complete the course. Patient should also continue with medicated eyedrops for the next 5 days. Total time taken is greater than 35 minutes. Hospital course Patient was believed to have dehydration and the patient was barely responsive at home because of which patient was taken to ER. Patient underwent septic workup all of which came back negative. Patient rapidly stopped taking all his medications. Patient was noted to have altered mental status. Patient appears to have baseline dementia presently alert oriented 1. I do not know clearly what his baseline has. Patient is found to have mildly elevated troponins and a had episodes of proximal A. fib with rapid ventricular rate troponins and echo was 0.07 and 0.073 and now came down to 0.05, initial creatinine was 2.1 after dietary hydration it came down to 1.63 baseline creatinine appears to be around 1.4 EKG showed sinus rhythm without any acute ST-T wave abnormalities. 01/24/2021 Patient is evaluated today at the bedside, he is sitting up in a chair. Patient is not on any acute distress alert and oriented 3, appropriate. Patient denies any chest pain, cough, shortness of breath. He states that his breathing is much improved. Patient is working with physical therapy, who is recommending subacute rehab on discharge. Patient was at [facility], signed himself out AMA and went home for a few days. The patient's son found him in bed and that the patient was unable to care for himself at this time. Patient does have a history of atrial fibrillation, he has been resumed on amiodarone, eliquis, all other home medications have been resumed as appropriate. Patient was evaluated by cardiology services. Echocardiogram revealed an ejection fraction of 35-40%, trace mitral regurg, trace tricuspid regurgitation. Once medically stable, patient will be discharged to a rehab facility. Vital signs are stable today, afebrile, sinus bradycardia 56, blood pressure 124/78, 100% on 2 L nasal cannula. 01/25/2021 Patient looks much better today patient is awake alert and oriented 2-3 which appears to be his baseline patient is awaiting disposition to subacute rehabilitation. IV fluids will be discontinued 01/26/2021 Procedure overnight events patient is still having some wheeze and rhonchi. Continue with inhalational steroids and inhalational treatments. Patient is not on oxygen at this time. 01/27/2021 Patient is seen in follow-up with no acute overnight issues. Patient currently on room air and continued on breathing inhalational treatments along with oral doxycycline and will continue for 7 days to complete the course. Patient states he does have a nebulizer and breathing treatments at home and instructed to continue and will need outpatient follow-up with cardiology along with his primary care provider upon discharge. Patient was seen and evaluated by PT/OT therapy recommending subacute rehab although patient is refusing and is adamant about going home today. Currently no reports of chest pain, shortness of breath, or palpitations. Patient is afebrile. No reports of nausea or vomiting and patient is tolerating diet. GENERAL: The patient is alert and oriented x3, not in any acute distress. Well developed, well nourished. Vital signs are stable HEENT: Pupils are round and equally reacting to light. EOMI. sclerae are icteric bilateral, yellowish drainage and crust noted. CARDIOVASCULAR: S1 and S2 present. No murmurs, rubs, or gallops. PULMONARY: Chest is clear to auscultation, no wheezing or crackles. ABDOMEN: Soft, nontender, nondistended, normoactive bowel sounds. No palpable organomegaly. MUSCULOSKELETAL: No joint swelling or deformity. EXTREMITIES: No cyanosis, clubbing, or pedal edema. NEUROLOGICAL: Gross neurological examination did not reveal any focal deficits. SKIN: No rashes. Please refer to medication reconciliation sheet for a list of medications. Patient Condition at Discharge: Fair Plan - Discharge Summary Discharge Rx Participant: Yes New Discharge Prescriptions: New Amiodarone [Cordarone] 200 mg PO DAILY #90 tab Ipratropium-Albuterol Nebulize [Duoneb 0.5 mg-3 mg/3 ml Soln] 3 ml INHALATION RT-TID 30 Days #90 ml Famotidine [Pepcid] 20 mg PO BID #60 tab Acetaminophen Tab [Tylenol] 650 mg PO Q6HR PRN tab PRN Reason: Mild Pain Or Fever > 100.5 Doxycycline [Vibramycin] 100 mg PO BID 7 Days #14 cap Losartan [Cozaar] 12.5 mg PO DAILY #30 tab Ipratropium-Albuterol Nebulize [Duoneb 0.5 mg-3 mg/3 ml Soln] 3 ml INHALATION RT-Q4H PRN ml PRN Reason: Shortness Of Breath Apixaban [Eliquis] 5 mg PO BID 30 Days #60 tab Metoprolol Tartrate [Lopressor] 25 mg PO BID #60 tab Polymyxin B-Trimeth Sulf Ophth [Polytrim Opthalmic] 1 drops BOTH EYES Q4HR #5 ml Continue Tamsulosin [Flomax] 0.4 mg PO BID Montelukast Sodium [Singulair] 10 mg PO HS Insulin Glargine,Hum.rec.anlog [Semglee Pen] 10 units SQ HS Methimazole [Tapazole] 5 mg PO DAILY Folic Acid 2 mg PO DAILY Discontinued Amiodarone HCl [Pacerone] 100 mg PO DAILY Diltiazem HCl [Cardizem CD] 120 mg PO DAILY Furosemide [Lasix] 20 mg PO DAILY Discharge Medication List Folic Acid 2 mg PO DAILY 12/23/20 [History] Insulin Glargine,Hum.rec.anlog [Semglee Pen] 10 units SQ HS 12/23/20 [History] Methimazole [Tapazole] 5 mg PO DAILY 12/23/20 [History] Montelukast Sodium [Singulair] 10 mg PO HS 12/23/20 [History] Tamsulosin [Flomax] 0.4 mg PO BID 12/23/20 [History] Acetaminophen Tab [Tylenol] 650 mg PO Q6HR PRN tab 01/27/21 [Rx] Amiodarone [Cordarone] 200 mg PO DAILY #90 tab 01/27/21 [Rx] Apixaban [Eliquis] 5 mg PO BID 30 Days #60 tab 01/27/21 [Rx] Doxycycline [Vibramycin] 100 mg PO BID 7 Days #14 cap 01/27/21 [Rx] Famotidine [Pepcid] 20 mg PO BID #60 tab 01/27/21 [Rx] Ipratropium-Albuterol Nebulize [Duoneb 0.5 mg-3 mg/3 ml Soln] 3 ml INHALATION RT-Q4H PRN ml 01/27/21 [Rx] Ipratropium-Albuterol Nebulize [Duoneb 0.5 mg-3 mg/3 ml Soln] 3 ml INHALATION RT-TID 30 Days #90 ml 01/27/21 [Rx] Losartan [Cozaar] 12.5 mg PO DAILY #30 tab 01/27/21 [Rx] Metoprolol Tartrate [Lopressor] 25 mg PO BID #60 tab 01/27/21 [Rx] Polymyxin B-Trimeth Sulf Ophth [Polytrim Opthalmic] 1 drops BOTH EYES Q4HR #5 ml 01/27/21 [Rx] Follow up Appointment(s)/Referral(s): Michael Quinonez MD [STAFF PHYSICIAN] - 2 Weeks Patient Instructions/Handouts: Heart Failure (DC), A-fib (Atrial Fibrillation) (DC), How to Stop Smoking (DC), COPD (Chronic Obstructive Pulmonary Disease) (DC) Activity/Diet/Wound Care/Special Instructions: Activity Limited until follow-up Follow-up with primary care provider upon discharge Continue taking medications as prescribed Follow-up with cardiology Dr. Quinonez in 1-2 weeks as discussed and scheduled Continue heart healthy diabetic diet Continue with breathing inhalational treatments Discharge Disposition: HOME SELF-CARE
[2021-01-28] MEDS ORDERED: FAMOTIDINE 20 MG TAB PO SCH (09:00)
== END 2021-01-27 14:36 | disposition home or self-care (01) | DRG 640 ==
LOC: 3SCARD 20:02
PROVIDERS: ADMIT Internal Medicine; ATTEND Internal Medicine
DX: E86.0 Dehydration (principal); G93.41 Metabolic encephalopathy; N17.9 Acute kidney failure, unspecified; I42.9 Cardiomyopathy, unspecified; I13.0 Hypertensive heart and chronic kidney disease with heart failure and stage 1 through stage 4 chronic kidney disease, or unspecified chronic kidney disease; I50.20 Unspecified systolic (congestive) heart failure; F03.90 Unspecified dementia, unspecified severity, without behavioral disturbance, psychotic disturbance, mood disturbance, and anxiety; G40.909 Epilepsy, unspecified, not intractable, without status epilepticus; N18.30 Chronic kidney disease, stage 3 unspecified; E11.22 Type 2 diabetes mellitus with diabetic chronic kidney disease; J44.9 Chronic obstructive pulmonary disease, unspecified; Z79.01 Long term (current) use of anticoagulants; Z99.81 Dependence on supplemental oxygen; I48.0 Paroxysmal atrial fibrillation; K21.9 Gastro-esophageal reflux disease without esophagitis; Z91.14 Patient's other noncompliance with medication regimen; Z87.891 Personal history of nicotine dependence; Z80.1 Family history of malignant neoplasm of trachea, bronchus and lung; Z91.19 Patient's noncompliance with other medical treatment and regimen; H10.89 Other conjunctivitis; B18.2 Chronic viral hepatitis C; Z90.5 Acquired absence of kidney; Z79.899 Other long term (current) drug therapy
CPT/HCPCS: 80048; 80053; 83735; 84439; 84443; 84484; 85025; 85610; 93306; 94640

== ENCOUNTER 2022-04-16 04:43 | Inpatient (IN) | payer MEDICARE, OTHER ==
[2022-04-16] MEDS ORDERED: ONDANSETRON 4 MG/2 ML VIAL IVP PRN ×2 (04:57→11:09)
[2022-04-16] MEDS ORDERED: NALOXONE 0.4 MG/ML 1 ML VIAL IV PRN (04:57)
[2022-04-16] MEDS ORDERED: HYDROmorphone 0.5 MG/0.5 ML SYRINGE IVP PRN (04:57)
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
[2022-04-16] MEDS ORDERED: PIPERACILLIN-TAZOBACTAM 3.375 GM in SODIUM CHLORIDE 0.9% 100 ML IVPB ONE (05:15)
[2022-04-16 05:44] LABS: Basophils % (A) 0 %; Eosinophils # (A) 0.2 k/uL (0-0.7); Eosinophils % (A) 2 %; HCT 43.8 % (39.0-53.0); HGB 14.2 gm/dL (13.0-17.5); Lymphocytes # (A) 1.2 k/uL (1.0-4.8); Lymphocytes % (A) 10 %; MCHC 32.4 g/dL (31.0-37.0); MCV 92.6 fL (80.0-100.0); Monocytes # (A) 0.6 k/uL (0-1.0); Monocytes % (A) 5 %; Neutrophils # (A) 9.7 k/uL (1.3-7.7); Neutrophils % (A) 82 %; Platelet Count 244 k/uL (150-450); RBC 4.73 m/uL (4.30-5.90); RDW 12.4 % (11.5-15.5); WBC 11.9 k/uL (3.8-10.6)
[2022-04-16] MEDS: SODIUM CHLORIDE 0.9% 1,000 ML IV SCH ×2 (06:11→16:44)
[2022-04-16 06:12] LABS: Partial Thromboplastin Time 25.6 sec (22.0-30.0); Prothrombin Time 10.9 sec (9.0-12.0)
[2022-04-16 06:13] LABS: Albumin 4.2 g/dL (3.5-5.0); Calcium 8.5 mg/dL (8.4-10.2); Potassium 4.7 mmol/L (3.5-5.1); Total Bilirubin 0.6 mg/dL (0.2-1.3); Total Protein 6.3 g/dL (6.3-8.2)
[2022-04-16] MEDS ORDERED: LACTATED RINGERS 1,000 ML IV ONE ×2 (10:27→14:30)
[2022-04-16] MEDS ORDERED: IV FLUID CONTINUATION 1,000 ML IV ONE (10:28)
[2022-04-16] MEDS: PIPERACILLIN-TAZOBACTAM 3.375 GM in SODIUM CHLORIDE 0.9% 100 ML IVPB SCH ×2 (10:28→21:24)
[2022-04-16 10:41] LABS: Glucose,Whole Blood 111 mg/dL (70-110)
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
[2022-04-16] MEDS ORDERED: ALBUTEROL NEBULIZED 2.5 MG/3 ML INHALATION STA (11:30)
[2022-04-16] MEDS ORDERED: SUGAMMADEX SODIUM 200 MG/2 ML SDV IV ONE (11:53)
[2022-04-16] MEDS ORDERED: PROPOFOL 10 MG/ML 20 ML VIAL IV ONE (11:53)
[2022-04-16] MEDS ORDERED: ROCURONIUM 10 MG/ML (5 ML VIAL) IV ONE (11:53)
[2022-04-16] MEDS ORDERED: fentaNYL (PF) 50 MCG/ML 2 ML AMP ONE (11:53)
[2022-04-16] MEDS ORDERED: SUCCINYLCHOLINE CHLORIDE 200 MG/10 ML VIAL IV ONE (11:53)
[2022-04-16] MEDS ORDERED: LIDOCAINE 2% INJ 20 MG/ML (2 ML VIAL) ONE (11:53)
[2022-04-16] MEDS ORDERED: NEOSTIGMINE 1 MG/ML 10 ML VIAL ONE (11:53)
[2022-04-16] MEDS ORDERED: GLYCOPYRROLATE 0.2 MG/ML 2 ML VIAL ONE (11:53)
[2022-04-16] MEDS ORDERED: BUPIVACAINE (PF) 0.25% 30 ML VIAL SQ ONE (12:45)
--- NOTE | 2022-04-16 12:53 | P.OP ---
Date of Procedure: 04/16/22 Preoperative Diagnosis: Incarcerated right inguinal hernia Small bowel obstruction Postoperative Diagnosis: Incarcerated right inguinal hernia Small bowel obstruction Procedure(s) Performed: Repair of incarcerated right inguinal hernia Anesthesia: DARLING Surgeon: Pablo Paulino Estimated Blood Loss (ml): 5 Pathology: none sent Condition: stable Disposition: PACU Description of Procedure: The patient's placed on the operative table in the supine position. He received general anesthesia. His abdomen was prepped and draped usual sterile fashion. The patient had an obvious incarcerated right inguinal hernia. There was a mass seen in the right groin. The skin was incised in the usual location and then using left cautery and sharp dissection the subcutaneous tissues were divided. The fascia external oblique was then exposed and this was divided with joyce roberto. The incarcerated hernia contained small bowel. The neck of the hernia was opened using Joyce roberto scissors and the hernia sac was opened. The small bowel appeared to be viable. The small bowel was then reduced into the peritoneal cavity. The hernia was then repaired by using a piece of Prolene mesh. The transversalis fascia was then reattached to the shelving edge of the inguinal ma lignant. In the mesh was placed over top of this and wrapped around the cord structures and secured to the pubic tubercle medially. The fascia external oblique was then closed using 0 Vicryl suture. Willy's fascia closed with 2-0 Vicryl suture. Skin was closed interrupted 3-0 Monocryl suture. Dermabond was applied. Patient top she will sent to recovery room stable condition.
[2022-04-16] MEDS ORDERED: ALBUTEROL NEBULIZED 2.5 MG/3 ML INHALATION ONE ×3 (13:00→13:30)
[2022-04-16] MEDS ORDERED: HYDROCORTISONE SUCCINATE 100 MG/2 ML VIAL IVP ONE (13:16)
[2022-04-16 15:14] LABS: Glucose,Whole Blood 127 mg/dL (70-110)
[2022-04-16] MEDS: PANTOPRAZOLE 40 MG/10 ML VIAL IV SCH (16:56)
[2022-04-16] MEDS: IPRATROPIUM-ALBUTEROL 3 ML NEB INHALATION PRN (20:15)
[2022-04-16] MEDS: HYDROmorphone 1 MG/ML 1 ML SYRINGE IVP PRN (21:24)
[2022-04-17] MEDS: IPRATROPIUM-ALBUTEROL 3 ML NEB INHALATION PRN ×3 (00:07→07:36)
[2022-04-17] MEDS ORDERED: prednisoLONE ACETATE 1% OPHTH DROPS 5 ML BTL LEFT EYE SCH (00:45)
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
[2022-04-17 06:08] LABS: Glucose,Whole Blood 101 mg/dL (70-110)
[2022-04-17] MEDS: INSULIN ASPART (NovoLOG) 100 UNIT/ML VIAL SQ SCH ×4 (06:37→20:56)
[2022-04-17] MEDS: SODIUM CHLORIDE 0.9% 1,000 ML IV SCH ×2 (06:37→13:55)
[2022-04-17] MEDS: PIPERACILLIN-TAZOBACTAM 3.375 GM in SODIUM CHLORIDE 0.9% 100 ML IVPB SCH ×3 (06:38→20:49)
[2022-04-17] MEDS: methIMAzole 5 MG TAB PO SCH (08:18)
[2022-04-17] MEDS: PANTOPRAZOLE 40 MG/10 ML VIAL IV SCH (08:18)
[2022-04-17 08:35] LABS: Calcium 7.9 mg/dL (8.4-10.2); Potassium 4.1 mmol/L (3.5-5.1)
[2022-04-17 08:36] LABS: Basophils % (A) 0 %; Eosinophils # (A) 0.1 k/uL (0-0.7); Eosinophils % (A) 1 %; HCT 36.1 % (39.0-53.0); HGB 11.9 gm/dL (13.0-17.5); Lymphocytes # (A) 1.2 k/uL (1.0-4.8); Lymphocytes % (A) 18 %; MCH 30.9 pg (25.0-35.0); MCHC 32.8 g/dL (31.0-37.0); Mean Platelet Volume 8.4; Monocytes # (A) 0.4 k/uL (0-1.0); Monocytes % (A) 7 %; Neutrophils # (A) 4.6 k/uL (1.3-7.7); Neutrophils % (A) 72 %; Platelet Count 160 k/uL (150-450); RBC 3.84 m/uL (4.30-5.90); RDW 12.5 % (11.5-15.5); WBC 6.4 k/uL (3.8-10.6)
--- NOTE | 2022-04-17 09:39 | XR ---
EXAMINATION TYPE: XR chest 2V DATE OF EXAM: 04/17/2022 COMPARISON: 12/27/2020 HISTORY: Shortness of breath TECHNIQUE: Frontal and lateral views of the chest are obtained. FINDINGS: Scattered senescent parenchymal changes noted. Hyperinflation compatible with COPD. Right upper lobe patchy density is unchanged and likely reflects an area of parenchymal scarring and hilar retraction. No acute infiltrate present. No evidence for atelectasis. Heart size is stable. Mediastinal structures are stable and grossly unremarkable. No evidence for hilar prominence. Degenerative changes dorsal spine. IMPRESSION: 1. No evidence for acute pulmonary disease.
[2022-04-17] MEDS ORDERED: HYDROcodone/APAP 5-325MG 1 EACH TAB PO PRN (10:17)
[2022-04-17] MEDS: IPRATROPIUM-ALBUTEROL 3 ML NEB INHALATION SCH ×3 (10:39→21:37)
--- NOTE | 2022-04-17 11:02 | P.PN ---
Subjective Progress Note Date: 04/17/22 CHIEF COMPLAINT: Incarcerated right inguinal hernia HISTORY OF PRESENT ILLNESS: Incarcerated right inguinal hernia and small bowel obstruction status post repair of incarcerated right inguinal hernia. Patient reports his pain is controlled. He is complaining more of shortness of breath and productive cough. Evidence of hemoptysis. He is on 5 L of oxygen which he is on at home. He has a productive cough. He denies any nausea or vomiting. He is having flatus. Afebrile. BP 99/60 WBC is 6.4 Hgb 14.2 down to 11.9 platelets 160 sodium is 136 potassium 4.1 creatinine 1.24 Patient seen and examined with Dr. shelby PHYSICAL EXAM: VITAL SIGNS: Reviewed. GENERAL: Well-developed in no acute distress. HEENT: No sclera icterus. Extraocular movements grossly intact. Moist buccal mucosa. Head is atraumatic, normocephalic. ABDOMEN: Soft. Nondistended. Nontender. Right groin incision site clean dry and intact NEUROLOGIC: Alert and oriented. Cranial nerves II through XII grossly intact. ASSESSMENT: 1. Incarcerated right inguinal hernia and small bowel obstruction status post repair of incarcerated right inguinal hernia 2. History of COPD and home O2. PLAN: -Worsening shortness of breath and productive cough. Chest x-ray ordered -DuoNeb lorenerafts changed to 4 times a day and as needed -Consult pulmonary service regarding his shortness of breath and hemoptysis -Switch attending service to medical -Advance diet as tolerated -[place] added for oral pain medication -GI prophylaxis Protonix Physician Mgmt Specialist note has been reviewed by physician. Signing provider agrees with the documented findings, assessment, and plan of care. Objective - Vital Signs Vital signs: Vital Signs Temp 98.5 F 04/17/22 02:05 Pulse 92 04/17/22 07:50 Resp 18 04/17/22 02:05 BP 89/43 04/17/22 02:05 Pulse Ox 100 04/16/22 20:34 FiO2 100 04/16/22 13:46 Intake & Output 04/16/22 04/17/22 04/17/22 18:59 06:59 18:59 Intake Total 1560 300 Output Total 10 225 Balance 1550 75 Weight 65.771 kg Intake: IV 1560 300 Sodium Chloride 0.9% 1, 300 000 ml @ 75 mls/hr IV . [id number] [facility] Rx#:[id number] Output: Urine 225 Estimated Blood Loss 10 Other: Voiding Method Urinal - Labs CBC & Chem 7: 04/17/22 07:55 04/17/22 07:55 Labs: Abnormal Lab Results - Last 24 Hours (Table) 04/16/22 04/16/22 04/17/22 Range/Units 10:40 15:11 07:55 RBC 3.84 L (4.30-5.90) m/uL Hgb 11.9 L (13.0-17.5) gm/dL Hct 36.1 L (39.0-53.0) % Sodium (137-145) mmol/L BUN (9-20) mg/dL POC Glucose (mg/dL) 111 H 127 H (70-110) mg/dL Calcium (8.4-10.2) mg/dL 04/17/22 Range/Units 07:55 RBC (4.30-5.90) m/uL Hgb (13.0-17.5) gm/dL Hct (39.0-53.0) % Sodium 136 L (137-145) mmol/L BUN 22 H (9-20) mg/dL POC Glucose (mg/dL) (70-110) mg/dL Calcium 7.9 L (8.4-10.2) mg/dL
[2022-04-17 11:16] VITALS: BMI 20.2
[2022-04-17 11:59] LABS: Glucose,Whole Blood 96 mg/dL (70-110)
[2022-04-17] MEDS: prednisoLONE ACETATE 1% OPHTH DROPS 5 ML BTL LEFT EYE SCH (13:54)
[2022-04-17 16:30] LABS: Glucose,Whole Blood 111 mg/dL (70-110)
[2022-04-17] MEDS: HYDROmorphone 1 MG/ML 1 ML SYRINGE IVP PRN (20:50)
[2022-04-17 20:56] LABS: Glucose,Whole Blood 111 mg/dL (70-110)
[2022-04-18] MEDS: IPRATROPIUM-ALBUTEROL 3 ML NEB INHALATION PRN (00:13)
[2022-04-18] MEDS: IPRATROPIUM-ALBUTEROL 3 ML NEB INHALATION SCH ×4 (07:45→20:38)
[2022-04-18] MEDS: methIMAzole 5 MG TAB PO SCH (09:15)
[2022-04-18] MEDS: INSULIN ASPART (NovoLOG) 100 UNIT/ML VIAL SQ SCH ×4 (09:15→20:34)
[2022-04-18] MEDS: PIPERACILLIN-TAZOBACTAM 3.375 GM in SODIUM CHLORIDE 0.9% 100 ML IVPB SCH ×3 (09:15→20:46)
[2022-04-18] MEDS: PANTOPRAZOLE 40 MG/10 ML VIAL IV SCH (09:15)
[2022-04-18] MEDS: SODIUM CHLORIDE 0.9% 1,000 ML IV SCH (11:06)
--- NOTE | 2022-04-18 11:17 | P.PN ---
Subjective Progress Note Date: 04/18/22 Principal diagnosis: Incarcerated inguinal hernia Patient doing better today. He is short of breath but denies abdominal pain. He has passing flatus. He is hungry. Objective - Vital Signs Vital signs: Vital Signs Temp 98.1 F 04/18/22 09:34 Pulse 80 04/18/22 09:37 Resp 18 04/18/22 09:37 BP 130/80 04/18/22 09:34 Pulse Ox 99 04/18/22 09:34 FiO2 100 04/16/22 13:46 Intake & Output 04/17/22 04/18/22 04/18/22 18:59 06:59 18:59 Intake Total 1080 Output Total 700 Balance 380 Weight 65.771 kg Intake: IV 600 Sodium Chloride 0.9% 1, 600 000 ml @ 75 mls/hr IV . [id number] [facility] Rx#:[id number] Intake, IV Titration 200 Amount Piperacillin-Tazobactam 3 200 .375 gm In Sodium Chloride 0.9% 100 ml @ 25 mls/hr IVPB Q8H [facility] Rx#: [id number] Oral 280 Output: Urine 700 Other: Voiding Method Urinal Urinal - Exam Abdomen: Soft, nondistended, incision clean and dry - Labs CBC & Chem 7: 04/17/22 07:55 04/17/22 07:55 Labs: Abnormal Lab Results - Last 24 Hours (Table) 04/17/22 04/17/22 Range/Units 16:29 20:55 POC Glucose (mg/dL) 111 H 111 H (70-110) mg/dL Assessment and Plan (1) Incarcerated right inguinal hernia Narrative/Plan: Patient is doing better currently. Will advance diet. Ambulate. Will follow. Current Visit: Yes Status: Acute Code(s): K40.30 - UNIL INGUINAL HERNIA, W OBST, W/O GANGR, NOT SPCF RECUR SNOMED Code(s): 111235605
[2022-04-18 11:37] LABS: Glucose,Whole Blood 98 mg/dL (70-110)
[2022-04-18 11:46] LABS: Glucose,Whole Blood 107 mg/dL (70-110)
[2022-04-18] MEDS: APIXABAN 5 MG TAB PO SCH ×2 (13:59→20:47)
[2022-04-18 16:38] LABS: Glucose,Whole Blood 118 mg/dL (70-110)
[2022-04-18 19:51] LABS: Glucose,Whole Blood 126 mg/dL (70-110)
[2022-04-19] MEDS: IPRATROPIUM-ALBUTEROL 3 ML NEB INHALATION PRN ×2 (00:29→03:45)
[2022-04-19 06:24] LABS: Glucose,Whole Blood 100 mg/dL (70-110)
[2022-04-19] MEDS: INSULIN ASPART (NovoLOG) 100 UNIT/ML VIAL SQ SCH ×4 (06:30→20:52)
[2022-04-19] MEDS: PIPERACILLIN-TAZOBACTAM 3.375 GM in SODIUM CHLORIDE 0.9% 100 ML IVPB SCH ×3 (06:44→20:50)
[2022-04-19] MEDS: APIXABAN 5 MG TAB PO SCH ×2 (08:27→20:50)
[2022-04-19] MEDS: methIMAzole 5 MG TAB PO SCH (08:27)
[2022-04-19] MEDS: PANTOPRAZOLE 40 MG/10 ML VIAL IV SCH (08:27)
[2022-04-19] MEDS: prednisoLONE ACETATE 1% OPHTH DROPS 5 ML BTL LEFT EYE SCH (08:28)
[2022-04-19] MEDS: IPRATROPIUM-ALBUTEROL 3 ML NEB INHALATION SCH ×4 (08:44→20:31)
--- NOTE | 2022-04-19 09:40 | P.PN ---
Subjective Progress Note Date: 04/17/22 Patient is a 77-year-old male with a known history of atrial fibrillation on anticoagulation with Eliquis, COPD on oxygen dependent as needed, diabetes type 2 insulin-dependent presents to ER with complaints of abdominal pain. Patient was transferred from outside hospital facility with diagnosis of incarcerated right inguinal hernia. Patient states that yesterday he started using restroom and he was standing and suddenly felt some pain in the right groin region. He noticed masslike protrusion and presented to hospital. Patient was found to have incarcerated right inguinal hernia with associated mechanical small bowel obstruction and was transferred to [facility] for surgical eval uation. Patient otherwise denied any recent diarrhea. He does have issues with constipation recently. Complains of nausea but no episodes of vomiting. Laboratory showed WBC 11.9 hemoglobin 14.1 platelets 244 Sodium 139 potassium to 4.7 chloride 103 bicarb is 26 BUN 21 and creatinine 1.29 blood sugar is 124 Loramyc are not elevated. 04/17/2022 Patient is currently sitting in the chair. Awake alert and oriented. No complaints of chest pain or worsening shortness of breath. Cough is of cough with whitish sputum production. Afebrile. Abdominal pain at the surgical site is better. Patient is able to pass flatus and was started on oral diet. Denied any nausea or vomiting. Laboratory data showed WBC 6.4 hemoglobin 11.9 and platelets 160, sodium 136 potassium 4.29036 bicarb is 23 BUN 22 and creatinine 1.24 Patient will be started back on anticoagulation tomorrow. Current medications reviewed. Objective - Vital Signs Vital signs: Vital Signs Temp 97.9 F 04/17/22 15:28 Pulse 65 04/17/22 15:28 Resp 18 04/17/22 15:28 BP 110/50 04/17/22 15:28 Pulse Ox 100 04/17/22 15:28 FiO2 100 04/16/22 13:46 Intake & Output 04/17/22 04/17/22 04/18/22 06:59 18:59 06:59 Intake Total 300 1080 Output Total 225 700 Balance 75 380 Weight 65.771 kg Intake: IV 300 600 Sodium Chloride 0.9% 1, 300 600 000 ml @ 75 mls/hr IV . [id number] [facility] Rx#:[id number] Intake, IV Titration 200 Amount Piperacillin-Tazobactam 3 200 .375 gm In Sodium Chloride 0.9% 100 ml @ 25 mls/hr IVPB Q8H [facility] Rx#: [id number] Oral 280 Output: Urine 225 700 Other: Voiding Method Urinal - Exam PHYSICAL EXAMINATION: Patient is lying in the bed comfortably, no acute distress, awake alert and oriented.. HEENT: Normocephalic. Neck is supple. Pupils reactive. Nostrils clear. Oral cavity is moist. Neck reveals no JVD, carotid bruits, or thyromegaly. CHEST EXAMINATION: Trachea is central. Symmetrical expansion. Bilateral mild expiratory wheeze. Nonlabored breathing CARDIAC: Normal S1, S2 with no gallops. No murmurs ABDOMEN: Soft. Bowel sounds sluggish. Tenderness at the surgical site surgical wound is granulated.. No organomegaly. No abdominal bruits. Extremities: reveal no edema. No clubbing or cyanosis Neurologically awake, alert, oriented x3 with well-coordinated movements. No focal deficits noted Skin: No rash or skin lesions. Psychiatric: Coperative. Nonsuicidal, Musculoskeletal: No joint swelling or deformity. Normal range of motion. - Labs CBC & Chem 7: 04/17/22 07:55 04/17/22 07:55 Labs: Abnormal Lab Results - Last 24 Hours (Table) 04/17/22 04/17/22 04/17/22 Range/Units 07:55 07:55 16:29 RBC 3.84 L (4.30-5.90) m/uL Hgb 11.9 L (13.0-17.5) gm/dL Hct 36.1 L (39.0-53.0) % Sodium 136 L (137-145) mmol/L BUN 22 H (9-20) mg/dL POC Glucose (mg/dL) 111 H (70-110) mg/dL Calcium 7.9 L (8.4-10.2) mg/dL Assessment and Plan Assessment: Incarcerated right inguinal hernia with mechanical small bowel obstruction. Status post repair on 04/16/2022. Mild leukocytosis improved. Acute kidney injury likely prerenal Paroxysmal atrial fibrillation on anticoagulation with Eliquis at home COPD on home oxygen dependent. Not in exacerbation. Diabetes type 2 [id number] DVT prophylaxis Plan: Patient was found to have incarcerated inguinal hernia. Patient is status post repair of incarcerated right inguinal hernia. Continue with IV hydration encourage incentive spirometry. Started on oral diet. Continue the duo nebs and insulin sliding scale. Follow-up CBC and BMP to black. Time with Patient: Greater than 30
--- NOTE | 2022-04-19 09:42 | P.PN ---
Subjective Progress Note Date: 04/19/22 Principal diagnosis: Incarcerated inguinal hernia Patient without new complaints. He does continue to have some productive cough and shortness of breath. Denies abdominal pain. No bowel movement yet. Tolerating regular diet. Objective - Vital Signs Vital signs: Vital Signs Temp 98.2 F 04/19/22 01:44 EST Pulse 78 04/19/22 09:16 Resp 18 04/19/22 09:16 BP 120/73 04/19/22 08:00 Pulse Ox 94 L 04/19/22 08:45 FiO2 100 04/16/22 13:46 Intake & Output 04/18/22 04/19/22 04/19/22 19:59 06:59 18:59 Intake Total Output Total Balance Intake: IV Sodium Chloride 0.9% 1, 000 ml @ 20 mls/hr IV . Q24H [facility] Rx#:[id number] Intake, IV Titration Amount Piperacillin-Tazobactam 3 .375 gm In Sodium Chloride 0.9% 100 ml @ 25 mls/hr IVPB Q8H [facility] Rx#: [id number] Oral Output: Urine Other: Voiding Method Urinal # Voids - Exam Abdomen: Soft, nondistended, incision clean and dry - Labs CBC & Chem 7: 04/17/22 07:55 04/17/22 07:55 Labs: Abnormal Lab Results - Last 24 Hours (Table) 04/18/22 04/18/22 Range/Units 16:37 19:50 POC Glucose (mg/dL) 118 H 126 H (70-110) mg/dL Assessment and Plan (1) Incarcerated right inguinal hernia Narrative/Plan: Patient doing well at this time. Continue regular diet. Monitor bowel function. Will follow. Current Visit: Yes Status: Acute Code(s): K40.30 - UNIL INGUINAL HERNIA, W OBST, W/O GANGR, NOT SPCF RECUR SNOMED Code(s): 083587112
--- NOTE | 2022-04-19 09:42 | P.PN ---
Subjective Progress Note Date: 04/18/22 Patient is a 77-year-old male with a known history of atrial fibrillation on anticoagulation with Eliquis, COPD on oxygen dependent as needed, diabetes type 2 insulin-dependent presents to ER with complaints of abdominal pain. Patient was transferred from outside hospital facility with diagnosis of incarcerated right inguinal hernia. Patient states that yesterday he started using restroom and he was standing and suddenly felt some pain in the right groin region. He noticed masslike protrusion and presented to hospital. Patient was found to have incarcerated right inguinal hernia with associated mechanical small bowel obstruction and was transferred to [facility] for surgical eval uation. Patient otherwise denied any recent diarrhea. He does have issues with constipation recently. Complains of nausea but no episodes of vomiting. Laboratory showed WBC 11.9 hemoglobin 14.1 platelets 244 Sodium 139 potassium to 4.7 chloride 103 bicarb is 26 BUN 21 and creatinine 1.29 blood sugar is 124 Loramyc are not elevated. 04/17/2022 Patient is currently sitting in the chair. Awake alert and oriented. No complaints of chest pain or worsening shortness of breath. Cough is of cough with whitish sputum production. Afebrile. Abdominal pain at the surgical site is better. Patient is able to pass flatus and was started on oral diet. Denied any nausea or vomiting. Laboratory data showed WBC 6.4 hemoglobin 11.9 and platelets 160, sodium 136 potassium 4.53995 bicarb is 23 BUN 22 and creatinine 1.24 Patient will be started back on anticoagulation tomorrow. 04/18/2022 Patient is sitting in a chair. Awake alert and oriented 3. Breathing status is better today. Continued on DuoNeb's. Chest x-ray showed no acute cardiopulmonary process. Patient is on 2 L oxygen with nasal cannula. Afebrile. Cough improved as well. Abdominal pain is controlled with medications. Able to tolerate oral diet. No nausea vomiting or diarrhea. Blood sugar is controlled.. Current medications reviewed. Objective - Vital Signs Vital signs: Vital Signs Temp 98.1 F 04/18/22 09:34 Pulse 73 04/18/22 17:12 Resp 18 04/18/22 17:12 BP 128/57 04/18/22 17:12 Pulse Ox 98 04/18/22 17:12 FiO2 100 04/16/22 13:46 Intake & Output 04/18/22 04/18/22 04/19/22 06:59 18:59 05:59 Intake Total 1000 Output Total 1750 Balance -750 Intake: IV 900 Sodium Chloride 0.9% 1, 900 000 ml @ 75 mls/hr IV . [id number] [facility] Rx#:[id number] Intake, IV Titration 100 Amount Piperacillin-Tazobactam 3 100 .375 gm In Sodium Chloride 0.9% 100 ml @ 25 mls/hr IVPB Q8H [facility] Rx#: [id number] Oral 0 Output: Urine 1750 Other: Voiding Method Urinal Urinal - Exam PHYSICAL EXAMINATION: Patient is lying in the bed comfortably, no acute distress, awake alert and oriented.. HEENT: Normocephalic. Neck is supple. Pupils reactive. Nostrils clear. Oral cavity is moist. Neck reveals no JVD, carotid bruits, or thyromegaly. CHEST EXAMINATION: Trachea is central. Symmetrical expansion. No wheezing or rhonchi. Nonlabored breathing CARDIAC: Normal S1, S2 with no gallops. No murmurs ABDOMEN: Soft. Bowel sounds sluggish. Tenderness at the surgical site surgical wound is healing well.. No organomegaly. No abdominal bruits. Extremities: reveal no edema. No clubbing or cyanosis Neurologically awake, alert, oriented x3 with well-coordinated movements. No focal deficits noted Skin: No rash or skin lesions. Psychiatric: Coperative. Nonsuicidal, Musculoskeletal: No joint swelling or deformity. Normal range of motion. - Labs CBC & Chem 7: 04/17/22 07:55 04/17/22 07:55 Labs: Abnormal Lab Results - Last 24 Hours (Table) 04/17/22 04/18/22 Range/Units 20:55 16:37 POC Glucose (mg/dL) 111 H 118 H (70-110) mg/dL Assessment and Plan Assessment: Incarcerated right inguinal hernia with mechanical small bowel obstruction. Status post repair on 04/16/2022. Mild leukocytosis improved. Acute kidney injury likely prerenal Paroxysmal atrial fibrillation on anticoagulation with Eliquis at home COPD on home oxygen dependent. Not in exacerbation. Diabetes type 2 [id number] DVT prophylaxis Plan: Patient was found to have incarcerated inguinal hernia. Patient is status post repair of incarcerated right inguinal hernia. Continue with IV hydration encourage incentive spirometry. Started on oral diet. Continue the duo nebs and insulin sliding scale. Start back on anticoagulation. Follow-up CBC and BMP tomorrow. Time with Patient: Greater than 30
[2022-04-19] MEDS: SODIUM CHLORIDE 0.9% 1,000 ML IV SCH (11:09)
[2022-04-19 11:32] LABS: Glucose,Whole Blood 117 mg/dL (70-110)
[2022-04-19 11:59] LABS: Basophils % (A) 0 %; Eosinophils # (A) 0.2 k/uL (0-0.7); Eosinophils % (A) 2 %; HCT 41.5 % (39.0-53.0); HGB 13.4 gm/dL (13.0-17.5); Lymphocytes % (A) 13 %; MCH 30.3 pg (25.0-35.0); MCHC 32.3 g/dL (31.0-37.0); MCV 93.9 fL (80.0-100.0); Mean Platelet Volume 9.3; Monocytes # (A) 0.6 k/uL (0-1.0); Monocytes % (A) 8 %; Neutrophils # (A) 5.8 k/uL (1.3-7.7); Neutrophils % (A) 75 %; Platelet Count 192 k/uL (150-450); RBC 4.42 m/uL (4.30-5.90); RDW 12.5 % (11.5-15.5); WBC 7.7 k/uL (3.8-10.6)
[2022-04-19 12:12] LABS: Calcium 8.5 mg/dL (8.4-10.2); Potassium 4.4 mmol/L (3.5-5.1)
[2022-04-19] MEDS: predniSONE 20 MG TAB PO SCH (14:34)
[2022-04-19] MEDS: METOPROLOL TARTRATE 25 MG TAB PO SCH ×2 (14:34→20:51)
[2022-04-19 16:30] LABS: Glucose,Whole Blood 106 mg/dL (70-110)
[2022-04-19 20:36] LABS: Glucose,Whole Blood 164 mg/dL (70-110)
[2022-04-20] MEDS: IPRATROPIUM-ALBUTEROL 3 ML NEB INHALATION PRN ×2 (00:08→03:50)
[2022-04-20 06:00] LABS: Glucose,Whole Blood 121 mg/dL (70-110)
[2022-04-20] MEDS: INSULIN ASPART (NovoLOG) 100 UNIT/ML VIAL SQ SCH ×2 (07:06→11:38)
[2022-04-20] MEDS: PIPERACILLIN-TAZOBACTAM 3.375 GM in SODIUM CHLORIDE 0.9% 100 ML IVPB SCH (07:07)
[2022-04-20] MEDS ORDERED: BUDESONIDE 0.5 MG/2 ML NEBU INHALATION SCH (08:00)
[2022-04-20] MEDS: IPRATROPIUM-ALBUTEROL 3 ML NEB INHALATION SCH ×2 (08:05→11:19)
[2022-04-20 08:32] LABS: Basophils % (A) 0 %; Eosinophils % (A) 1 %; HCT 39.6 % (39.0-53.0); HGB 12.4 gm/dL (13.0-17.5); Lymphocytes # (A) 1.1 k/uL (1.0-4.8); Lymphocytes % (A) 18 %; MCH 29.3 pg (25.0-35.0); MCHC 31.4 g/dL (31.0-37.0); MCV 93.3 fL (80.0-100.0); Mean Platelet Volume 8.9; Monocytes # (A) 0.4 k/uL (0-1.0); Monocytes % (A) 7 %; Neutrophils # (A) 4.4 k/uL (1.3-7.7); Neutrophils % (A) 74 %; Platelet Count 224 k/uL (150-450); RBC 4.24 m/uL (4.30-5.90); RDW 12.6 % (11.5-15.5)
[2022-04-20 08:58] LABS: Calcium 8.6 mg/dL (8.4-10.2); Potassium 4.9 mmol/L (3.5-5.1)
[2022-04-20] MEDS: METOPROLOL TARTRATE 25 MG TAB PO SCH (09:21)
[2022-04-20] MEDS: methIMAzole 5 MG TAB PO SCH (09:21)
[2022-04-20] MEDS: PANTOPRAZOLE 40 MG/10 ML VIAL IV SCH (09:21)
[2022-04-20] MEDS: APIXABAN 5 MG TAB PO SCH (09:21)
[2022-04-20] MEDS: predniSONE 20 MG TAB PO SCH (09:21)
[2022-04-20 09:47] VITALS: BP 117/69
[2022-04-20] MEDS ORDERED: DOCUSATE 100 MG CAP PO SCH (10:00)
[2022-04-20 11:38] VITALS: PULSE 51; RESP 18; TEMP 97.4
[2022-04-20 11:45] LABS: Glucose,Whole Blood 106 mg/dL (70-110)
--- NOTE | 2022-04-20 11:56 | P.PN ---
Subjective Progress Note Date: 04/20/22 CHIEF COMPLAINT: Incarcerated right inguinal hernia HISTORY OF PRESENT ILLNESS: Incarcerated right inguinal hernia and small bowel obstruction status post repair of incarcerated right inguinal hernia. Patient reports his pain is controlled. He is having flatus. Denies any bowel movements. He is up and ambulating with physical therapy.. Patient reports improvement in his breathing. Afebrile. On 2 L satting at 96%. WBC 6 Hgb 12.4 creatinine 1.49 Patient seen and examined with Dr. shelby PHYSICAL EXAM: VITAL SIGNS: Reviewed. GENERAL: Well-developed in no acute distress. HEENT: No sclera icterus. Extraocular movements grossly intact. Moist buccal mucosa. Head is atraumatic, normocephalic. ABDOMEN: Soft. Nondistended. Nontender. Right groin incision site clean dry and intact NEUROLOGIC: Alert and oriented. Cranial nerves II through XII grossly intact. ASSESSMENT: 1. Incarcerated right inguinal hernia and small bowel obstruction status post repair of incarcerated right inguinal hernia 2. History of COPD and home O2. PLAN: -Patient can be discharged from surgical standpoint when medically cleared -Continue regular diet -Encourage patient to ambulate -[place] added -GI prophylaxis Protonix and DVT prophylaxis Eliquis Physician Press Operator Apprentice note has been reviewed by physician. Signing provider agrees with the documented findings, assessment, and plan of care. Objective - Vital Signs Vital signs: Vital Signs Temp 97.4 F L 04/20/22 11:36 Pulse 51 L 04/20/22 11:36 Resp 18 04/20/22 11:36 BP 117/69 04/20/22 11:36 Pulse Ox 96 04/20/22 11:36 FiO2 100 04/16/22 13:46 Intake & Output 04/19/22 04/20/22 04/20/22 18:59 06:59 18:59 Intake Total 998 237 118 Output Total 500 1225 Balance 498 -988 118 Intake: IV 240 Sodium Chloride 0.9% 1, 240 000 ml @ 20 mls/hr IV . Q24H [facility] Rx#:[id number] Intake, IV Titration 100 Amount Piperacillin-Tazobactam 3 100 .375 gm In Sodium Chloride 0.9% 100 ml @ 25 mls/hr IVPB Q8H [facility] Rx#: [id number] Oral 658 237 118 Output: Urine 500 1225 Other: Voiding Method Urinal Urinal Urinal # Voids 1 - Labs CBC & Chem 7: 04/20/22 08:14 04/20/22 08:14 Labs: Abnormal Lab Results - Last 24 Hours (Table) 04/19/22 04/19/22 04/20/22 Range/Units 10:59 20:34 05:58 RBC (4.30-5.90) m/uL Hgb (13.0-17.5) gm/dL Creatinine 1.28 H (0.66-1.25) mg/dL Glucose (74-99) mg/dL POC Glucose (mg/dL) 164 H 121 H (70-110) mg/dL 04/20/22 04/20/22 Range/Units 08:14 08:14 RBC 4.24 L (4.30-5.90) m/uL Hgb 12.4 L (13.0-17.5) gm/dL Creatinine 1.49 H (0.66-1.25) mg/dL Glucose 187 H (74-99) mg/dL POC Glucose (mg/dL) (70-110) mg/dL
--- NOTE | 2022-04-20 13:40 | P.PN ---
Subjective Progress Note Date: 04/19/22 Patient is a 77-year-old male with a known history of atrial fibrillation on anticoagulation with Eliquis, COPD on oxygen dependent as needed, diabetes type 2 insulin-dependent presents to ER with complaints of abdominal pain. Patient was transferred from outside hospital facility with diagnosis of incarcerated right inguinal hernia. Patient states that yesterday he started using restroom and he was standing and suddenly felt some pain in the right groin region. He noticed masslike protrusion and presented to hospital. Patient was found to have incarcerated right inguinal hernia with associated mechanical small bowel obstruction and was transferred to [facility] for surgical eval uation. Patient otherwise denied any recent diarrhea. He does have issues with constipation recently. Complains of nausea but no episodes of vomiting. Laboratory showed WBC 11.9 hemoglobin 14.1 platelets 244 Sodium 139 potassium to 4.7 chloride 103 bicarb is 26 BUN 21 and creatinine 1.29 blood sugar is 124 Loramyc are not elevated. 04/17/2022 Patient is currently sitting in the chair. Awake alert and oriented. No complaints of chest pain or worsening shortness of breath. Cough is of cough with whitish sputum production. Afebrile. Abdominal pain at the surgical site is better. Patient is able to pass flatus and was started on oral diet. Denied any nausea or vomiting. Laboratory data showed WBC 6.4 hemoglobin 11.9 and platelets 160, sodium 136 potassium 4.58742 bicarb is 23 BUN 22 and creatinine 1.24 Patient will be started back on anticoagulation tomorrow. 04/18/2022 Patient is sitting in a chair. Awake alert and oriented 3. Breathing status is better today. Continued on DuoNeb's. Chest x-ray showed no acute cardiopulmonary process. Patient is on 2 L oxygen with nasal cannula. Afebrile. Cough improved as well. Abdominal pain is controlled with medications. Able to tolerate oral diet. No nausea vomiting or diarrhea. Blood sugar is controlled.. 04/19/2022 Patient is currently sitting in the chair. Awake alert and oriented 3. Breathing status is still not getting better. Exertional dyspnea and especially wheezing. Patient will be started on prednisone and continue with DuoNeb's and Pulmicort was added. Otherwise patient is controlled. Also Antivert is now on Zosyn. General surgery is on board. Patient has been afebrile. Cough without any sputum production. Current medications reviewed. Objective - Vital Signs Vital signs: Vital Signs Temp 98.2 F 04/19/22 01:44 EST Pulse 76 04/19/22 16:32 Resp 19 04/19/22 14:21 BP 119/76 04/19/22 14:21 Pulse Ox 98 04/19/22 16:20 FiO2 100 04/16/22 13:46 Intake & Output 04/18/22 04/19/22 04/19/22 19:59 06:59 18:59 Intake Total 998 Output Total 500 Balance 498 Intake: IV 240 Sodium Chloride 0.9% 1, 240 000 ml @ 20 mls/hr IV . Q24H LELE Rx#:[id number] Intake, IV Titration 100 Amount Piperacillin-Tazobactam 3 100 .375 gm In Sodium Chloride 0.9% 100 ml @ 25 mls/hr IVPB Q8H LELE Rx#: [id number] Oral 658 Output: Urine 500 Other: Voiding Method Urinal # Voids - Exam PHYSICAL EXAMINATION: Patient is lying in the bed comfortably, no acute distress, awake alert and oriented.. HEENT: Normocephalic. Neck is supple. Pupils reactive. Nostrils clear. Oral cavity is moist. Neck reveals no JVD, carotid bruits, or thyromegaly. CHEST EXAMINATION: Trachea is central. Symmetrical expansion. No wheezing or rhonchi. Nonlabored breathing CARDIAC: Normal S1, S2 with no gallops. No murmurs ABDOMEN: Soft. Bowel sounds sluggish. Tenderness at the surgical site surgical wound is healing well.. No organomegaly. No abdominal bruits. Extremities: reveal no edema. No clubbing or cyanosis Neurologically awake, alert, oriented x3 with well-coordinated movements. No focal deficits noted Skin: No rash or skin lesions. Psychiatric: Coperative. Nonsuicidal, Musculoskeletal: No joint swelling or deformity. Normal range of motion. - Labs CBC & Chem 7: 04/20/22 08:14 04/20/22 08:14 Labs: Abnormal Lab Results - Last 24 Hours (Table) 04/18/22 04/19/22 04/19/22 Range/Units 19:50 10:59 11:29 Creatinine 1.28 H (0.66-1.25) mg/dL POC Glucose (mg/dL) 126 H 117 H (70-110) mg/dL Assessment and Plan Assessment: Incarcerated right inguinal hernia with mechanical small bowel obstruction. Status post repair on 04/16/2022. Mild leukocytosis improved. Acute kidney injury likely prerenal Paroxysmal atrial fibrillation on anticoagulation with Eliquis at home COPD on home oxygen dependent. Mild exacerbation. Diabetes type 2 [id number] DVT prophylaxis Plan: Patient was found to have incarcerated inguinal hernia. Patient is status post repair of incarcerated right inguinal hernia. Continue with IV hydration encourage incentive spirometry. Started on oral diet. Continue the duo nebs and insulin sliding scale. Start back on anticoagulation. Start on oral prednisone 40 mg daily. Follow-up CBC and BMP tomorrow. Time with Patient: Greater than 30
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
== END 2022-04-20 15:16 | disposition home or self-care (01) | DRG 351 ==
LOC: EC 04:43 → 4SSUR 04:58 → 3SCARD 14:00
PROVIDERS: ADMIT Internal Medicine; ATTEND Internal Medicine
PROC: 0YU50JZ Supplement Right Inguinal Region with Synthetic Substitute, Open Approach (ICD-10-PCS; principal; 2022-04-16 07:30)
PROC: 0D9670Z Drainage of Stomach with Drainage Device, Via Natural or Artificial Opening (ICD-10-PCS; principal; 2022-04-16 07:30)
DX: K40.30 Unilateral inguinal hernia, with obstruction, without gangrene, not specified as recurrent (principal); I48.20 Chronic atrial fibrillation, unspecified; N17.9 Acute kidney failure, unspecified; J44.1 Chronic obstructive pulmonary disease with (acute) exacerbation; J96.11 Chronic respiratory failure with hypoxia; R04.2 Hemoptysis; R91.1 Solitary pulmonary nodule; E11.9 Type 2 diabetes mellitus without complications; F17.200 Nicotine dependence, unspecified, uncomplicated; Z88.6 Allergy status to analgesic agent; Z79.01 Long term (current) use of anticoagulants; Z99.81 Dependence on supplemental oxygen; Z90.49 Acquired absence of other specified parts of digestive tract; Z87.828 Personal history of other (healed) physical injury and trauma; Z79.4 Long term (current) use of insulin; Z79.899 Other long term (current) drug therapy; Z90.5 Acquired absence of kidney
CPT/HCPCS: 71046; 80048; 80053; 83036; 83605; 85025; 85610; 85730; 86850; 86900; 86901; 94640; 94660; 94760; 96374; 99285

== ENCOUNTER 2022-05-07 18:35 | Inpatient (IN) | payer MEDICARE, OTHER ==
[2022-05-07] MEDS ORDERED: IPRATROPIUM-ALBUTEROL 3 ML NEB INHALATION STA (18:54)
[2022-05-07 19:19] LABS: Calcium 8.6 mg/dL (8.4-10.2); Magnesium 2.5 mg/dL (1.6-2.3); Total Bilirubin 0.9 mg/dL (0.2-1.3); Total Protein 6.5 g/dL (6.3-8.2)
[2022-05-07 19:22] LABS: Partial Thromboplastin Time 27.6 sec (22.0-30.0); Prothrombin Time 11.3 sec (9.0-12.0)
[2022-05-07 19:26] LABS: Basophils % (A) 0 %; Eosinophils % (A) 0 %; HCT 43.2 % (39.0-53.0); HGB 14.5 gm/dL (13.0-17.5); Lymphocytes # (A) 0.3 k/uL (1.0-4.8); Lymphocytes % (A) 2 %; MCH 30.8 pg (25.0-35.0); MCHC 33.6 g/dL (31.0-37.0); MCV 91.8 fL (80.0-100.0); Mean Platelet Volume 9.2; Monocytes # (A) 0.2 k/uL (0-1.0); Monocytes % (A) 2 %; Neutrophils % (A) 96 %; Platelet Count 163 k/uL (150-450); RBC 4.71 m/uL (4.30-5.90); RDW 12.7 % (11.5-15.5); WBC 13.6 k/uL (3.8-10.6)
--- NOTE | 2022-05-07 19:45 | XR ---
EXAMINATION TYPE: XR chest 2V DATE OF EXAM: 05/07/2022 COMPARISON: 04/17/2022 HISTORY: Short of breath TECHNIQUE: FINDINGS: Heart is normal. There is increased density in the right paraspinal right lower lobe consis tent with infiltrate. Left lung is fairly clear. There is some mild reticular infiltrate right upper lobe without change. No heart failure. There is mild flattening of the diaphragm. IMPRESSION: There is evidence of some right lower lobe pneumonia that is new compared to the exam. No rmal heart. COPD. Right upper lobe scarring without change.
[2022-05-07] MEDS ORDERED: cefTRIAXone IN SWFI 1,000 MG/10 ML SYRINGE IVP STA (19:52)
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
[2022-05-07 21:24] LABS: Appearance,Urine Clear (Clear); Bilirubin,Urine Negative (Negative); Blood,Urine Small (Negative); Color,Urine Yellow; Glucose,Urine (UA) Negative (Negative); Ketones,Urine 1+ (Negative); Leukocyte Esterase,Urine Negative (Negative); Mucus,Urine Rare /hpf; Nitrite,Urine Negative (Negative); PH, Urine 6.5 (5.0-8.0); Protein,Urine 2+ (Negative); RBC,Urine 23 /hpf (0-5); Specific Gravity,Urine 1.021 (1.001-1.035); Urobilinogen,Urine <2.0 mg/dL (<2.0); WBC,Urine 1 /hpf (0-5)
[2022-05-07] MEDS ORDERED: NALOXONE 0.4 MG/ML 1 ML VIAL IV PRN (22:10)
[2022-05-08] MEDS ORDERED: IPRATROPIUM-ALBUTEROL 3 ML NEB INHALATION PRN (04:06)
[2022-05-08] MEDS ORDERED: AZITHROMYCIN 500 MG TAB PO STA (04:06)
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
[2022-05-08] MEDS: methylPREDNISolone SOD SUCCI 125 MG/2 ML VIAL IV SCH ×5 (05:07→23:10)
[2022-05-08] MEDS: SODIUM CHLORIDE 0.9% 1,000 ML IV SCH ×2 (05:07→13:39)
[2022-05-08 06:11] LABS: Glucose,Whole Blood 122 mg/dL (70-110)
[2022-05-08] MEDS: INSULIN ASPART (NovoLOG) 100 UNIT/ML VIAL SQ SCH ×4 (06:13→20:33)
[2022-05-08] MEDS: IPRATROPIUM-ALBUTEROL 3 ML NEB INHALATION SCH ×4 (08:16→20:50)
[2022-05-08 09:02] LABS: HCT 42.4 % (39.0-53.0); HGB 13.6 gm/dL (13.0-17.5); MCH 29.8 pg (25.0-35.0); MCV 93.2 fL (80.0-100.0); Mean Platelet Volume 8.7; Platelet Count 182 k/uL (150-450); RBC 4.55 m/uL (4.30-5.90); RDW 12.7 % (11.5-15.5); WBC 8.3 k/uL (3.8-10.6)
[2022-05-08 09:22] LABS: Calcium 8.6 mg/dL (8.4-10.2); Potassium 4.5 mmol/L (3.5-5.1)
[2022-05-08] MEDS: prednisoLONE ACETATE 1% OPHTH DROPS 5 ML BTL LEFT EYE SCH (11:05)
[2022-05-08] MEDS: AZITHROMYCIN 250 MG TAB PO SCH (11:05)
[2022-05-08] MEDS: APIXABAN 5 MG TAB PO SCH ×2 (11:05→20:32)
[2022-05-08] MEDS: methIMAzole 5 MG TAB PO SCH (11:05)
--- NOTE | 2022-05-08 11:42 | P.PN ---
Subjective Progress Note Date: 05/08/22 Principal diagnosis: SOB Hospital Course: 77-year-old male with a PMH of A. rj on Eliquis, type II DM, COPD with chronic hypoxic respiratory failure on 3-4 L nasal cannula oxygen continuously at home, hypertension, and hyperlipidemia presenting from outside hospital for worsening shortness of breath. At outside hospital, patient was noted to have an elevated BNP, troponin, and was transferred for a CHF exacerbation. However, patient denies any significant orthopnea, dyspnea on exertion, or lower extremity edema. He does complain of increased productive cough and wheezing. Chest x-ray concerning for right lower lobe pneumonia. EKG showed sinus rhythm with diffuse T-wave inversions. Laboratory evaluation significant for leukocytosis of 13.6, troponin 0.077, proBNP 1130. Patient started on bronchodilators, steroids, and antibiotics. Pulmonology consulted. Subjective: Patient seen and examined at bedside. No acute events overnight. He claims that his shortness of breath has improved since coming to the hospital. He normally uses about 4-5 L of oxygen at home, and is currently on 3 L oxygen. He denies any significant chest pain, abdominal pain, nausea, vomiting, diarrhea, constipation, or urinary complaints. Pertinent positives and negatives as discussed above, a complete review of systems was performed and all other systems are negative. Vitals Signs Reviewed. General: nontoxic, no distress, appears at stated age, cachectic Derm: warm, dry Head: atraumatic, normocephalic, symmetric Eyes: EOMI, no lid lag, anicteric sclera Mouth: no lip lesion, mucus membranes moist Cardiovascular: S1S2 reg, no murmur Lungs: CTA bilateral, no rhonchi, no rales , no accessory muscle use Abdominal: soft, nontender to palpation, no guarding, no appreciable organomegaly Ext: no gross muscle atrophy, no edema, no contractures Neuro: CN II-XI grossly intact, no focal neuro deficits Psych: Alert, oriented, appropriate affect Assessment and Plan: Acute COPD exacerbation with chronic hypoxic respiratory failure Community-acquired pneumonia, sepsis Leukocytosis - improved -Steroids, bronchodilators, antibiotics, supplemental oxygen -Pulmonology consult -Influenza and COVID-19 pending -Blood cultures pending Elevated troponin -Likely type II demand ischemia -Telemetry -Trending down Chronic medical conditions: Diabetes -SSI Hypertension Dyslipidemia Atrial fibrillation -Medications reviewed and reconciled DVT ppx: Eliquis Code status: Full code Anticipated discharge place: Home Anticipated discharge time: 2-3 days Objective - Vital Signs Vital signs: Vital Signs Temp 97.7 F 05/08/22 10:45 Pulse 78 05/08/22 10:45 Resp 16 05/08/22 10:45 BP 118/76 05/08/22 10:45 Pulse Ox 99 05/08/22 10:45 FiO2 Intake & Output 05/07/22 05/08/22 05/08/22 18:59 06:59 18:59 Intake Total 240 Balance 240 Weight 58.967 kg 58.967 kg Intake: Oral 240 Other: # Voids 1 # Bowel Movements 1 - Labs CBC & Chem 7: 05/08/22 08:20 05/08/22 08:20 Labs: Abnormal Lab Results - Last 24 Hours (Table) 05/07/22 05/07/22 05/07/22 Range/Units 19:01 19:01 19:01 WBC 13.6 H (3.8-10.6) k/uL Neutrophils # 13.0 H (1.3-7.7) k/uL Lymphocytes # 0.3 L (1.0-4.8) k/uL Sodium 133 L (137-145) mmol/L Carbon Dioxide 21 L (22-30) mmol/L BUN 25 H (9-20) mg/dL Creatinine 1.32 H (0.66-1.25) mg/dL Glucose 156 H (74-99) mg/dL POC Glucose (mg/dL) (70-110) mg/dL Magnesium 2.5 H (1.6-2.3) mg/dL Troponin I 0.077 H* (0.000-0.034) ng/mL Urine Protein (Negative) Urine Ketones (Negative) Urine Blood (Negative) Urine RBC (0-5) /hpf Urine Mucus (None) /hpf 05/07/22 05/08/22 05/08/22 Range/Units 21:08 06:10 08:20 WBC (3.8-10.6) k/uL Neutrophils # (1.3-7.7) k/uL Lymphocytes # (1.0-4.8) k/uL Sodium 136 L (137-145) mmol/L Carbon Dioxide (22-30) mmol/L BUN 35 H (9-20) mg/dL Creatinine 1.35 H (0.66-1.25) mg/dL Glucose 202 H (74-99) mg/dL POC Glucose (mg/dL) 122 H (70-110) mg/dL Magnesium (1.6-2.3) mg/dL Troponin I (0.000-0.034) ng/mL Urine Protein 2+ H (Negative) Urine Ketones 1+ H (Negative) Urine Blood Small H (Negative) Urine RBC 23 H (0-5) /hpf Urine Mucus Rare H (None) /hpf 05/08/22 Range/Units 08:20 WBC (3.8-10.6) k/uL Neutrophils # (1.3-7.7) k/uL Lymphocytes # (1.0-4.8) k/uL Sodium (137-145) mmol/L Carbon Dioxide (22-30) mmol/L BUN (9-20) mg/dL Creatinine (0.66-1.25) mg/dL Glucose (74-99) mg/dL POC Glucose (mg/dL) (70-110) mg/dL Magnesium (1.6-2.3) mg/dL Troponin I 0.059 H* (0.000-0.034) ng/mL Urine Protein (Negative) Urine Ketones (Negative) Urine Blood (Negative) Urine RBC (0-5) /hpf Urine Mucus (None) /hpf
[2022-05-08 11:49] LABS: Glucose,Whole Blood 117 mg/dL (70-110)
[2022-05-08 11:50] VITALS: BMI 18.1
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
[2022-05-08 16:43] LABS: Glucose,Whole Blood 153 mg/dL (70-110)
[2022-05-08 20:22] LABS: Glucose,Whole Blood 175 mg/dL (70-110)
[2022-05-09] MEDS: SODIUM CHLORIDE 0.9% 1,000 ML IV SCH ×2 (05:23→22:49)
[2022-05-09 06:02] LABS: Glucose,Whole Blood 143 mg/dL (70-110)
[2022-05-09] MEDS: INSULIN ASPART (NovoLOG) 100 UNIT/ML VIAL SQ SCH ×4 (06:08→19:58)
[2022-05-09] MEDS: methylPREDNISolone SOD SUCCI 125 MG/2 ML VIAL IV SCH ×4 (06:09→23:31)
[2022-05-09] MEDS: IPRATROPIUM-ALBUTEROL 3 ML NEB INHALATION SCH ×4 (07:42→19:44)
[2022-05-09] MEDS: APIXABAN 5 MG TAB PO SCH ×2 (09:53→19:58)
[2022-05-09] MEDS: methIMAzole 5 MG TAB PO SCH (09:53)
[2022-05-09] MEDS: AZITHROMYCIN 250 MG TAB PO SCH (09:53)
--- NOTE | 2022-05-09 11:09 | P.PN ---
Subjective Progress Note Date: 05/09/22 Principal diagnosis: SOB Hospital Course: 77-year-old male with a PMH of A. rj on Eliquis, type II DM, COPD with chronic hypoxic respiratory failure on 3-4 L nasal cannula oxygen continuously at home, hypertension, and hyperlipidemia presenting from outside hospital for worsening shortness of breath. At outside hospital, patient was noted to have an elevated BNP, troponin, and was transferred for a CHF exacerbation. However, patient denies any significant orthopnea, dyspnea on exertion, or lower extremity edema. He does complain of increased productive cough and wheezing. Chest x-ray concerning for right lower lobe pneumonia. EKG showed sinus rhythm with diffuse T-wave inversions. Laboratory evaluation significant for leukocytosis of 13.6, troponin 0.077, proBNP 1130. Patient started on bronchodilators, steroids, and antibiotics. Pulmonology consulted. Subjective: Patient seen and examined at bedside. No acute events overnight. He claims that his shortness of breath has improved since coming to the hospital. He normally uses about 4-5 L of oxygen at home, and is currently on 3 L oxygen. He denies any significant chest pain, abdominal pain, nausea, vomiting, diarrhea, constipation, or urinary complaints. Pertinent positives and negatives as discussed above, a complete review of systems was performed and all other systems are negative. Vitals Signs Reviewed. General: nontoxic, no distress, appears at stated age, cachectic Derm: warm, dry Head: atraumatic, normocephalic, symmetric Eyes: EOMI, no lid lag, anicteric sclera Mouth: no lip lesion, mucus membranes moist Cardiovascular: S1S2 reg, no murmur Lungs: CTA bilateral, no rhonchi, no rales , no accessory muscle use, 4 L nasal cannula Abdominal: soft, nontender to palpation, no guarding, no appreciable organomegaly Ext: no gross muscle atrophy, no edema, no contractures Neuro: CN II-XI grossly intact, no focal neuro deficits Psych: Alert, oriented, appropriate affect Assessment and Plan: Acute COPD exacerbation with chronic hypoxic respiratory failure Community-acquired pneumonia, sepsis Leukocytosis - improved -Steroids, bronchodilators, antibiotics, supplemental oxygen -Pulmonology consult -Influenza and COVID-19 negative -Blood cultures NGTD -Wean supplemental oxygen Elevated troponin -Likely type II demand ischemia -Telemetry -Trending down Chronic medical conditions: Diabetes -SSI Hyperthyroidism Atrial fibrillation -Medications reviewed and reconciled DVT ppx: Eliquis Code status: Full code Anticipated discharge place: Home Anticipated discharge time: Likely, Objective - Vital Signs Vital signs: Vital Signs Temp 98.1 F 05/09/22 03:21 Pulse 72 05/09/22 07:56 Resp 20 05/09/22 03:21 BP 106/52 05/09/22 03:21 Pulse Ox 99 05/09/22 03:21 FiO2 Intake & Output 05/08/22 05/09/22 05/09/22 18:59 06:59 18:59 Intake Total 1378 658 Output Total 250 Balance 1378 408 Weight 58.967 kg Intake: Oral 1378 658 Output: Urine 250 Other: # Voids 3 - Labs CBC & Chem 7: 05/08/22 08:20 05/08/22 08:20 Labs: Abnormal Lab Results - Last 24 Hours (Table) 05/08/22 05/08/22 05/08/22 Range/Units 11:48 16:42 20:20 POC Glucose (mg/dL) 117 H 153 H 175 H (70-110) mg/dL 05/09/22 Range/Units 06:00 POC Glucose (mg/dL) 143 H (70-110) mg/dL Microbiology - Last 24 Hours (Table) 05/07/22 20:40 Blood Culture - Preliminary Blood No Growth after 24 hours
[2022-05-09 11:38] LABS: Glucose,Whole Blood 125 mg/dL (70-110)
--- NOTE | 2022-05-09 13:13 | P.PN ---
Subjective Progress Note Date: 05/09/22 This is a 77-year-old mentation with known history of COPD. The patient has chronic advanced COPD, oxygen dependent and the patient is a chronic ex-smoker. The patient is coming into the hospital because of increased dyspnea, chest congestion chest episode wheezing. He states that he was producing thick current respiratory secretions. No pleurisy. No hemoptysis. No chest pain. No altered mentation. Is known to have COPD and he also has chronic atrial fibrillation maintained on long-term and coagulation with Eliquis. The patient is also known to have diabetes mellitus, hypertension and hyperlipidemia. The patient has also chronic kidney disease. He has undergone a previous nephrectomy on the right for a renal mass. His creatinine has been chronically elevated. During this current admission, the patient had a chest x-ray that showed a right lower lobe infiltrate which is a new finding consistent with underlying pneumonia. The patient's white cell count was at 13.6 with hemoglob in 14.5, BUN is 25 with a creatinine of 1.3 and a sodium level of 133. Troponins are 0.07 and 0.05 respectively 2, normal LFTs, albumin is at 4 with a total protein of 6.5. ProBNP level is 1130. Normal cognition profile. The patient's current on examination Rocephin and Zithromax. He is an acute COPD exacerbation patient will be also given Solu-Medrol in combination with bronchodilators. The patient was transferred to us from [facility] noted the patient the recent hospitalization for incarcerated right inguinal hernia and small bowel obstruction and he underwent surgery without any major complication. He was discharged home. On today's evaluation of 05/09/2022, the patient is doing slightly better compared to yesterday. He remains on broad-spectrum antibiotics. He the re owen on 4 L of oxygen by nasal cannula. He is on Rocephin and Zithromax. Doing well. Less short of breath. No chest pain. No hemoptysis or pleurisy. No new labs available from today. He remains on bronchodilators and steroids. Objective - Vital Signs Vital signs: Vital Signs Temp 98.1 F 05/09/22 03:21 Pulse 72 05/09/22 11:25 Resp 20 05/09/22 03:21 BP 106/52 05/09/22 03:21 Pulse Ox 99 05/09/22 03:21 FiO2 Intake & Output 05/08/22 05/09/22 05/09/22 18:59 06:59 18:59 Intake Total 1378 658 Output Total 250 Balance 1378 408 Weight 58.967 kg Intake: Oral 1378 658 Output: Urine 250 Other: # Voids 3 - Exam General: non toxic, no distress, appears at stated age, thin male, currently on oxygen and the patient is receiving 4 L of O2 nasal cannula. Derm: no unusual rashes/lesions, warm Head: atraumatic, normocephalic, symmetric Eyes: EOMI, no lid lag, anicteric sclera, pupils equal round reactive to light ENT: Nose and ears atraumatic Neck: No cervical lymphadenopathy, trachea midline, supple Mouth: no lip lesion, mucus membranes moist Cardiovascular: S1S2 reg, no murmur, positive dorsalis pedis pulse bilateral, no edema Lungs: Poor air entry bilaterally with some expiratory wheezing, no accessory muscle use Abdominal: soft, nontender to palpation, no guarding Ext: muscle strength 5 out of 5 in all 4 extremities grossly, no gross muscle atrophy, no contractures, Neuro: CN II-XI grossly intact, no gross focal neuro deficits Psych: Alert, oriented, appropriate affect - Labs CBC & Chem 7: 05/08/22 08:20 05/08/22 08:20 Labs: Abnormal Lab Results - Last 24 Hours (Table) 05/08/22 05/08/22 05/09/22 Range/Units 16:42 20:20 06:00 POC Glucose (mg/dL) 153 H 175 H 143 H (70-110) mg/dL 05/09/22 Range/Units 11:37 POC Glucose (mg/dL) 125 H (70-110) mg/dL Microbiology - Last 24 Hours (Table) 05/07/22 20:40 Blood Culture - Preliminary Blood No Growth after 24 hours Assessment and Plan Plan: acute right lower lobe pneumonia with secondary shortness of breath Acute COPD exacerbation due to a right lower lobe pneumonia Severe bullous emphysema and the patient has been chronically oxygen dependent at 5 L per minute nasal cannula. He has a home nebulizer. He has also taken his vaccination for Covid 19 History of proximal atrial fibrillation, maintained on long-term anticoagulation with Eliquis History of kidney cancer with a previous right nephrectomy Chronic stage III kidney disease Hyperthyroidism maintained on methimazole Ex-smoker Impaired hearing Plan Slightly improved compared to yesterday DContinue uoNeb about treatments [id number] Continue IV Rocephin and Zithromax Obtain sputum Gram stain and culture, still pending Obtain blood cultures, negative Continue IV Solu-Medrol Continue anticoagulation with Eliquis Continue Tapazole IV fluids kvo We'll continue to follow
[2022-05-09 16:52] LABS: Glucose,Whole Blood 186 mg/dL (70-110)
[2022-05-09 20:00] LABS: Glucose,Whole Blood 149 mg/dL (70-110)
[2022-05-10 06:07] LABS: Glucose,Whole Blood 154 mg/dL (70-110)
[2022-05-10] MEDS: INSULIN ASPART (NovoLOG) 100 UNIT/ML VIAL SQ SCH ×4 (06:26→20:19)
[2022-05-10] MEDS: methylPREDNISolone SOD SUCCI 125 MG/2 ML VIAL IV SCH ×2 (06:26→11:50)
[2022-05-10] MEDS: IPRATROPIUM-ALBUTEROL 3 ML NEB INHALATION SCH ×4 (08:39→20:01)
[2022-05-10] MEDS: APIXABAN 5 MG TAB PO SCH ×2 (09:08→20:17)
[2022-05-10] MEDS: methIMAzole 5 MG TAB PO SCH (09:09)
[2022-05-10] MEDS: AZITHROMYCIN 250 MG TAB PO SCH (09:09)
[2022-05-10] MEDS: prednisoLONE ACETATE 1% OPHTH DROPS 5 ML BTL LEFT EYE SCH (09:10)
[2022-05-10] MEDS: SODIUM CHLORIDE 0.9% 1,000 ML IV SCH (10:55)
--- NOTE | 2022-05-10 11:20 | P.PN ---
Subjective Progress Note Date: 05/10/22 Principal diagnosis: SOB Hospital Course: 77-year-old male with a PMH of A. rj on Eliquis, type II DM, COPD with chronic hypoxic respiratory failure on 3-4 L nasal cannula oxygen continuously at home, hypertension, and hyperlipidemia presenting from outside hospital for worsening shortness of breath. At outside hospital, patient was noted to have an elevated BNP, troponin, and was transferred for a CHF exacerbation. However, patient denies any significant orthopnea, dyspnea on exertion, or lower extremity edema. He does complain of increased productive cough and wheezing. Chest x-ray concerning for right lower lobe pneumonia. EKG showed sinus rhythm with diffuse T-wave inversions. Laboratory evaluation significant for leukocytosis of 13.6, troponin 0.077, proBNP 1130. Patient started on bronchodilators, steroids, and antibiotics. Pulmonology consulted. Subjective: Patient seen and examined at bedside. No acute events overnight. He claims geovanny t his shortness of breath has improved since coming to the hospital. He normally uses about 4-5 L of oxygen at home, and is currently on home oxygen. He denies any significant chest pain, abdominal pain, nausea, vomiting, diarrhea, constipation, or urinary complaints. Pertinent positives and negatives as discussed above, a complete review of systems was performed and all other systems are negative. Vitals Signs Reviewed. General: nontoxic, no distress, appears at stated age, cachectic Derm: warm, dry Head: atraumatic, normocephalic, symmetric Eyes: EOMI, no lid lag, anicteric sclera Mouth: no lip lesion, mucus membranes moist Cardiovascular: S1S2 reg, no murmur Lungs: CTA bilateral, no rhonchi, no rales , no accessory muscle use, 4 L nasal cannula Abdominal: soft, nontender to palpation, no guarding, no appreciable organomegaly Ext: no gross muscle atrophy, no edema, no contractures Neuro: CN II-XI grossly intact, no focal neuro deficits Psych: Alert, oriented, appropriate affect Assessment and Plan: Acute COPD exacerbation with chronic hypoxic respiratory failure Community-acquired pneumonia, sepsis Leukocytosis - improved -Steroids, bronchodilators, antibiotics, supplemental oxygen -Pulmonology consult -Influenza and COVID-19 negative -Blood cultures NGTD -Wean supplemental oxygen -Likely discharge tomorrow if continues to improve Elevated troponin -Likely type II demand ischemia -Telemetry -Trending down Chronic medical conditions: Diabetes -SSI Hyperthyroidism Atrial fibrillation -Medications reviewed and reconciled DVT ppx: Eliquis Code status: Full code Anticipated discharge place: Home Anticipated discharge time: Likely tomorrow Objective - Vital Signs Vital signs: Vital Signs Temp 97.8 F 05/10/22 08:00 Pulse 78 05/10/22 08:57 Resp 17 05/10/22 08:00 BP 134/68 05/10/22 08:00 Pulse Ox 98 05/10/22 08:40 FiO2 5 05/10/22 08:40 Intake & Output 05/09/22 05/10/22 05/10/22 18:59 06:59 18:59 Intake Total 1738 300 245 Output Total 250 Balance 1488 300 245 Intake: IV 5 Invasive Line 1 5 Oral 1738 300 240 Output: Urine 250 Other: # Voids 1 # Bowel Movements 0 - Labs CBC & Chem 7: 05/08/22 08:20 05/08/22 08:20 Labs: Abnormal Lab Results - Last 24 Hours (Table) 05/09/22 05/09/22 05/09/22 Range/Units 11:37 16:50 19:58 POC Glucose (mg/dL) 125 H 186 H 149 H (70-110) mg/dL 05/10/22 Range/Units 06:06 POC Glucose (mg/dL) 154 H (70-110) mg/dL Microbiology - Last 24 Hours (Table) 05/07/22 20:40 Blood Culture - Preliminary Blood No Growth after 48 hours
[2022-05-10 11:23] LABS: Glucose,Whole Blood 162 mg/dL (70-110)
--- NOTE | 2022-05-10 14:46 | P.PN ---
Subjective Progress Note Date: 05/10/22 This is a 77-year-old mentation with known history of COPD. The patient has chronic advanced COPD, oxygen dependent and the patient is a chronic ex-smoker. The patient is coming into the hospital because of increased dyspnea, chest congestion chest episode wheezing. He states that he was producing thick current respiratory secretions. No pleurisy. No hemoptysis. No chest pain. No altered mentation. Is known to have COPD and he also has chronic atrial fibrillation maintained on long-term and coagulation with Eliquis. The patient is also known to have diabetes mellitus, hypertension and hyperlipidemia. The patient has also chronic kidney disease. He has undergone a previous nephrectomy on the right for a renal mass. His creatinine has been chronically elevated. During this current admission, the patient had a chest x-ray that showed a right lower lobe infiltrate which is a new finding consistent with underlying pneumonia. The patient's white cell count was at 13.6 with hemoglob in 14.5, BUN is 25 with a creatinine of 1.3 and a sodium level of 133. Troponins are 0.07 and 0.05 respectively 2, normal LFTs, albumin is at 4 with a total protein of 6.5. ProBNP level is 1130. Normal cognition profile. The patient's current on examination Rocephin and Zithromax. He is an acute COPD exacerbation patient will be also given Solu-Medrol in combination with bronchodilators. The patient was transferred to us from [facility] noted the patient the recent hospitalization for incarcerated right inguinal hernia and small bowel obstruction and he underwent surgery without any major complication. He was discharged home. On today's evaluation of 05/09/2022, the patient is doing slightly better compared to yesterday. He remains on broad-spectrum antibiotics. He the re owen on 4 L of oxygen by nasal cannula. He is on Rocephin and Zithromax. Doing well. Less short of breath. No chest pain. No hemoptysis or pleurisy. No new labs available from today. He remains on bronchodilators and steroids. 05/10/2022, the patient is gradually improving. No new complaints. He remains on 4 L O2 nasal cannula. He remains on IV Rocephin. Remains on IV Solu-Medrol which is causing him to have some insomnia. He is currently on 60 mg of IV Solu-Medrol every 12 hours. He is still on long-term anticoagulation with Eliquis. He is also on DuoNeb about treatments [id number]. Cultures are negative thus far. His blood work shows a glucose of 162. Objective - Vital Signs Vital signs: Vital Signs Temp 97.8 F 05/10/22 08:00 Pulse 72 05/10/22 11:54 Resp 17 05/10/22 08:00 BP 134/68 05/10/22 08:00 Pulse Ox 98 05/10/22 08:40 FiO2 5 05/10/22 08:40 Intake & Output 05/09/22 05/10/22 05/10/22 18:59 06:59 18:59 Intake Total 1738 300 245 Output Total 250 Balance 1488 300 245 Intake: IV 5 Invasive Line 1 5 Oral 1738 300 240 Output: Urine 250 Other: # Voids 1 # Bowel Movements 0 - Exam General: non toxic, no distress, appears at stated age, thin male, currently on oxygen and the patient is receiving 4 L of O2 nasal cannula. Derm: no unusual rashes/lesions, warm Head: atraumatic, normocephalic, symmetric Eyes: EOMI, no lid lag, anicteric sclera, pupils equal round reactive to light ENT: Nose and ears atraumatic Neck: No cervical lymphadenopathy, trachea midline, supple Mouth: no lip lesion, mucus membranes moist Cardiovascular: S1S2 reg, no murmur, positive dorsalis pedis pulse bilateral, no edema Lungs: Poor air entry bilaterally with some expiratory wheezing, no accessory muscle use Abdominal: soft, nontender to palpation, no guarding Ext: muscle strength 5 out of 5 in all 4 extremities grossly, no gross muscle atrophy, no contractures, Neuro: CN II-XI grossly intact, no gross focal neuro deficits Psych: Alert, oriented, appropriate affect - Labs CBC & Chem 7: 05/08/22 08:20 05/08/22 08:20 Labs: Abnormal Lab Results - Last 24 Hours (Table) 05/09/22 05/09/22 05/10/22 Range/Units 16:50 19:58 06:06 POC Glucose (mg/dL) 186 H 149 H 154 H (70-110) mg/dL 05/10/22 Range/Units 11:21 POC Glucose (mg/dL) 162 H (70-110) mg/dL Microbiology - Last 24 Hours (Table) 05/07/22 20:40 Blood Culture - Preliminary Blood No Growth after 48 hours Assessment and Plan Plan: acute right lower lobe pneumonia with secondary shortness of breath Acute COPD exacerbation due to a right lower lobe pneumonia Severe bullous emphysema and the patient has been chronically oxygen dependent at 5 L per minute nasal cannula. He has a home nebulizer. He has also taken his vaccination for Covid 19 History of proximal atrial fibrillation, maintained on long-term anticoagulation with Eliquis History of kidney cancer with a previous right nephrectomy Chronic stage III kidney disease Hyperthyroidism maintained on methimazole Ex-smoker Impaired hearing Plan Repeat chest x-ray in the morning Continue antibiotics DuoNeb about treatments [id number] Obtain blood cultures, negative Continue IV Solu-Medrol, and taper the dose of 40 mg every 12 hours Continue anticoagulation with Eliquis Continue Tapazole IV fluids kvo We'll continue to follow
--- NOTE | 2022-05-10 15:18 | XR ---
EXAMINATION TYPE: XR chest 1V DATE OF EXAM: 05/10/2022 COMPARISON: 05/07/2022 HISTORY: Chest pain TECHNIQUE: 2 views FINDINGS: Heart is normal. Lungs are clear of consolidation. There is some mild reticular interstitia l infiltrate right upper lobe. Left lung is clear. There are no hilar masses. IMPRESSION: There is clearing of the right lower lobe pneumonia and atelectasis compared to recent ex ams. Pulmonary scarring at the right lung apex.
[2022-05-10 16:59] LABS: Glucose,Whole Blood 199 mg/dL (70-110)
[2022-05-10 19:21] LABS: Glucose,Whole Blood 222 mg/dL (70-110)
[2022-05-10] MEDS: methylPREDNISolone SOD SUCCI 40 MG/ML 1 ML VIAL IV SCH (20:18)
[2022-05-11 06:28] LABS: Glucose,Whole Blood 131 mg/dL (70-110)
[2022-05-11] MEDS: INSULIN ASPART (NovoLOG) 100 UNIT/ML VIAL SQ SCH (06:29)
[2022-05-11] MEDS: IPRATROPIUM-ALBUTEROL 3 ML NEB INHALATION SCH ×2 (08:00→11:31)
[2022-05-11 08:04] VITALS: BP 112/50; RESP 17; TEMP 98.4
--- NOTE | 2022-05-11 08:12 | XR ---
EXAMINATION TYPE: XR chest 1V DATE OF EXAM: 05/11/2022 COMPARISON: 05/10/2022, 05/07/2022, 12/27/2020, 01/08/2020 INDICATION: Right lower lobe pneumonia TECHNIQUE: Single frontal view of the chest is obtained. FINDINGS: The heart size is normal. The pulmonary vasculature is normal. Right upper lobe chronic appearing markings remain present. No suspicious right lower lobe infiltrate is evident at this time. IMPRESSION: 1. Chronic appearing right upper lobe. Continued monitoring for stability is recommended.
[2022-05-11] MEDS: APIXABAN 5 MG TAB PO SCH (08:27)
[2022-05-11] MEDS: methylPREDNISolone SOD SUCCI 40 MG/ML 1 ML VIAL IV SCH (08:27)
[2022-05-11] MEDS: methIMAzole 5 MG TAB PO SCH (08:27)
[2022-05-11 10:44] VITALS: PULSE 57
--- NOTE | 2022-05-11 13:49 | P.DS ---
Providers Date of admission: 05/08/22 00:31 Expected date of discharge: 05/11/22 Attending physician: Francisco Holman MD Consults: 05/08/22 04:09 Consult Physician Urgent Consulting Provider: Maurilio Lawrence Consult Reason/Comments: COPD Do you want consulting provider notified?: Yes Primary care physician: [place] Hospital Course: Discharge Diagnosis: Acute COPD exacerbation with chronic hypoxic respiratory failure Sepsis secondary to community-acquired pneumonia Leukocytosis Elevated troponin Diabetes Atrial fibrillation Hyperthyroidism Hospital Course: 77-year-old male with a PMH of A. fib on Eliquis, type II DM, COPD with chronic hypoxic respiratory failure on 3-4 L nasal cannula oxygen continuously at home, hypertension, and hyperlipidemia presenting from outside hospital for worsening shortness of breath. At outside hospital, patient was noted to have an elevated BNP, troponin, and was transferred for a CHF exacerbation. However, patient den ies any significant orthopnea, dyspnea on exertion, or lower extremity edema. He does complain of increased productive cough and wheezing. Chest x-ray concerning for right lower lobe pneumonia. EKG showed sinus rhythm with diffuse T-wave inversions. Laboratory evaluation significant for leukocytosis of 13.6, troponin 0.077, proBNP 1130. Patient started on bronchodilators, steroids, and antibiotics. Pulmonology consulted. Pulmonary symptoms improved with medical therapy. Patient discharged with oral antibiotics and oral steroids. 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 Patient seen and examined at bedside. Vital signs reviewed and stable. General: nontoxic, no distress, appears at stated age, cachectic Derm: warm, dry Head: atraumatic, normocephalic, symmetric Eyes: EOMI, no lid lag, anicteric sclera Mouth: no lip lesion, mucus membranes moist Cardiovascular: S1S2 reg, no murmur Lungs: CTA bilateral, no rhonchi, no rales , no accessory muscle use, 4 L nasal cannula Abdominal: soft, nontender to palpation, no guarding, no appreciable organomegaly Ext: no gross muscle atrophy, no edema, no contractures Neuro: CN II-XI grossly intact, no focal neuro deficits Psych: Alert, oriented, appropriate affect A total of 37 minutes of time were spent preparing this complex discharge summary. Patient was discharged on 05/11/22 at 9:49. Patient Condition at Discharge: Stable Plan - Discharge Summary Discharge Rx Participant: No New Discharge Prescriptions: New Cefdinir 300 mg PO Q12HR #4 cap predniSONE [Deltasone] 40 mg PO DAILY #4 tab Continue Ipratropium-Albuterol Nebulize [Duoneb 0.5 mg-3 mg/3 ml Soln] 3 ml INHALATION RT-QID Apixaban [Eliquis] 5 mg PO BID Albuterol Sulfate [Albuterol Sulfate Hfa] 2 puff PO RT-Q4H PRN PRN Reason: Wheezing prednisoLONE ACETATE 1% OPHTH [Pred Forte 1%] 1 drops LEFT EYE Q2D methIMAzole 10 mg PO DAILY Discharge Medication List Albuterol Sulfate [Albuterol Sulfate Hfa] 2 puff PO RT-Q4H PRN 04/16/22 [History] Apixaban [Eliquis] 5 mg PO BID 04/16/22 [History] Ipratropium-Albuterol Nebulize [Duoneb 0.5 mg-3 mg/3 ml Soln] 3 ml INHALATION RT-QID 04/16/22 [History] methIMAzole 10 mg PO DAILY 04/16/22 [History] prednisoLONE ACETATE 1% OPHTH [Pred Forte 1%] 1 drops LEFT EYE Q2D 04/16/22 [History] Cefdinir 300 mg PO Q12HR #4 cap 05/11/22 [Rx] predniSONE [Deltasone] 40 mg PO DAILY #4 tab 05/11/22 [Rx] Follow up Appointment(s)/Referral(s): Oswaldo Duncan NPC [Primary Care Provider] - 05/13/22 1:00 pm Patient Instructions/Handouts: Community Acquired Pneumonia (DC) Activity/Diet/Wound Care/Special Instructions: Please see your PCP as well as 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 Discharge Disposition: HOME SELF-CARE
== END 2022-05-11 11:48 | disposition home or self-care (01) | DRG 871 ==
LOC: EC 18:35 → 3SCARD 05-08 00:31 → 4SSUR 05-09 23:31
PROVIDERS: ADMIT Internal Medicine; ATTEND Internal Medicine
DX: A41.9 Sepsis, unspecified organism (principal); J18.9 Pneumonia, unspecified organism; I48.20 Chronic atrial fibrillation, unspecified; I24.8 Other forms of acute ischemic heart disease; J96.11 Chronic respiratory failure with hypoxia; Z68.1 Body mass index [BMI] 19.9 or less, adult; J43.9 Emphysema, unspecified; E11.22 Type 2 diabetes mellitus with diabetic chronic kidney disease; I12.9 Hypertensive chronic kidney disease with stage 1 through stage 4 chronic kidney disease, or unspecified chronic kidney disease; Z20.822 Contact with and (suspected) exposure to COVID-19; E78.5 Hyperlipidemia, unspecified; E05.90 Thyrotoxicosis, unspecified without thyrotoxic crisis or storm; N18.30 Chronic kidney disease, stage 3 unspecified; K40.90 Unilateral inguinal hernia, without obstruction or gangrene, not specified as recurrent; T38.0X5A Adverse effect of glucocorticoids and synthetic analogues, initial encounter; G47.09 Other insomnia; R63.4 Abnormal weight loss; H91.90 Unspecified hearing loss, unspecified ear; Z99.81 Dependence on supplemental oxygen; Z90.5 Acquired absence of kidney; Z87.891 Personal history of nicotine dependence; Z85.528 Personal history of other malignant neoplasm of kidney; Z79.899 Other long term (current) drug therapy; Z79.01 Long term (current) use of anticoagulants; Z88.6 Allergy status to analgesic agent; Z87.828 Personal history of other (healed) physical injury and trauma
CPT/HCPCS: 36415; 71045; 71046; 80048; 80053; 81001; 83605; 83735; 83880; 84484; 85025; 85027; 85610; 85730; 87040; 87070; 87205; 87636; 93005; 94640; 94760; 96374; 99285

== ENCOUNTER 2022-06-07 09:31 | Inpatient (IN) | payer MEDICARE, OTHER ==
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
[2022-06-07 10:22] LABS: Basophils % (A) 1 %; Eosinophils % (A) 1 %; HCT 37.8 % (39.0-53.0); HGB 12.9 gm/dL (13.0-17.5); Lymphocytes # (A) 0.3 k/uL (1.0-4.8); Lymphocytes % (A) 13 %; MCH 30.8 pg (25.0-35.0); MCHC 34.1 g/dL (31.0-37.0); MCV 90.4 fL (80.0-100.0); Mean Platelet Volume 9.1; Monocytes # (A) 0.2 k/uL (0-1.0); Monocytes % (A) 7 %; Neutrophils # (A) 2.1 k/uL (1.3-7.7); Neutrophils % (A) 77 %; Platelet Count 164 k/uL (150-450); RBC 4.18 m/uL (4.30-5.90); RDW 13.4 % (11.5-15.5); WBC 2.8 k/uL (3.8-10.6)
[2022-06-07 10:33] LABS: Albumin 3.6 g/dL (3.5-5.0); Calcium 8.2 mg/dL (8.4-10.2); Potassium 4.6 mmol/L (3.5-5.1); Total Bilirubin 0.4 mg/dL (0.2-1.3)
[2022-06-07] MEDS ORDERED: HEPARIN SODIUM 1,000 UN/ML (10ML VL) IV PRN (11:23)
[2022-06-07] MEDS ORDERED: HEPARIN SOD,PORK IN 0.45% NACL 25,000 UNIT in 0.45% NACL 1 250ML.BAG IV SCH (11:30)
[2022-06-07 12:51] LABS: INR 1.1 (<1.2); Prothrombin Time 11.2 sec (9.0-12.0)
[2022-06-07 13:09] LABS: Partial Thromboplastin Time 60.9 sec (22.0-30.0)
[2022-06-07] MEDS ORDERED: NITROGLYCERIN SL TABS 0.4 MG TAB SUBLINGUAL PRN (14:19)
[2022-06-07] MEDS: ALBUTEROL NEBULIZED 2.5 MG/3 ML INHALATION PRN ×2 (14:19→23:14)
[2022-06-07] MEDS: IPRATROPIUM-ALBUTEROL 3 ML NEB INHALATION SCH ×3 (14:34→19:06)
[2022-06-07] MEDS ORDERED: NITROGLYCERIN OINT 1 INCH/GM PACKET TOPICAL SCH (16:00)
[2022-06-07 18:15] LABS: Chol/HDL Ratio 3.11 Ratio; LDL Cholesterol,Calculated 101.9 mg/dL (0.0-131.0)
[2022-06-07] MEDS: NITROGLYCERIN OINT 1 INCH/GM PACKET TOPICAL SCH (18:20)
[2022-06-07] MEDS: METOPROLOL SUCCINATE (ER) 25 MG TAB.ER.24H PO SCH (21:59)
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
[2022-06-08] MEDS: ALBUTEROL NEBULIZED 2.5 MG/3 ML INHALATION PRN ×2 (03:21→23:45)
[2022-06-08] MEDS: NITROGLYCERIN OINT 1 INCH/GM PACKET TOPICAL SCH ×2 (04:29→07:42)
[2022-06-08 06:24] LABS: Basophils % (A) 0 %; Eosinophils % (A) 0 %; HCT 37.3 % (39.0-53.0); HGB 12.5 gm/dL (13.0-17.5); Lymphocytes # (A) 0.8 k/uL (1.0-4.8); Lymphocytes % (A) 20 %; MCH 30.3 pg (25.0-35.0); MCHC 33.5 g/dL (31.0-37.0); MCV 90.4 fL (80.0-100.0); Mean Platelet Volume 9.2; Monocytes # (A) 0.4 k/uL (0-1.0); Monocytes % (A) 11 %; Neutrophils # (A) 2.5 k/uL (1.3-7.7); Neutrophils % (A) 65 %; Platelet Count 190 k/uL (150-450); RBC 4.13 m/uL (4.30-5.90); RDW 13.3 % (11.5-15.5); WBC 3.9 k/uL (3.8-10.6)
[2022-06-08 06:28] LABS: INR 1.1 (<1.2); Partial Thromboplastin Time 43.4 sec (22.0-30.0); Prothrombin Time 11.1 sec (9.0-12.0)
[2022-06-08] MEDS: IPRATROPIUM-ALBUTEROL 3 ML NEB INHALATION SCH ×4 (07:12→19:42)
[2022-06-08] MEDS ORDERED: ALPRAZolam 0.25 MG TAB PO PRN (07:56)
[2022-06-08] MEDS ORDERED: ALPRAZolam 0.5 MG TAB PO PRN (07:56)
[2022-06-08] MEDS ORDERED: ASPIRIN 325 MG TAB PO STA (07:56)
[2022-06-08] MEDS ORDERED: NITROGLYCERIN SL TABS 0.4 MG TAB SUBLINGUAL PRN (07:56)
[2022-06-08] MEDS ORDERED: ATORVASTATIN 80 MG TAB PO STA (07:56)
[2022-06-08] MEDS ORDERED: VERAPAMIL 2.5 MG/ML 2 ML AMP ONE (08:30)
[2022-06-08] MEDS: METOPROLOL SUCCINATE (ER) 25 MG TAB.ER.24H PO SCH ×2 (08:35→20:27)
[2022-06-08] MEDS: methIMAzole 5 MG TAB PO SCH (08:36)
[2022-06-08] MEDS: ATORVASTATIN 40 MG TAB PO SCH (08:41)
[2022-06-08] MEDS ORDERED: ASPIRIN 325 MG TAB PO SCH (09:00)
[2022-06-08] MEDS ORDERED: fentaNYL (PF) 50 MCG/ML 2 ML AMP ONE (09:12)
[2022-06-08] MEDS ORDERED: MIDAZOLAM 2 MG/2 ML VIAL IV ONE (09:16)
[2022-06-08] MEDS ORDERED: fentaNYL (PF) 50 MCG/ML 2 ML AMP IV ONE (09:16)
[2022-06-08] MEDS ORDERED: LIDOCAINE 1% INJ 10MG/ML (5 ML VIAL-PF) SQ ONE (09:16)
[2022-06-08] MEDS ORDERED: SODIUM CHLORIDE 0.9% 500 ML 500 ML IV ONE (09:17)
[2022-06-08 09:20] LABS: Chol/HDL Ratio 3.26 Ratio; LDL Cholesterol,Calculated 104.9 mg/dL (0.0-131.0); VLDL Calculation 19.92 mg/dL (5.00-40.00)
[2022-06-08] MEDS ORDERED: LIDOCAINE 1% INJ 10MG/ML (30 ML VIAL-PF) SQ ONE (09:27)
[2022-06-08] MEDS ORDERED: VERAPAMIL SYRINGE (5 MG/10 ML) INTRAARTER ONE (09:27)
--- NOTE | 2022-06-08 10:10 | CC ---
CARDIAC CATHETERIZATION REPORT INDICATION: [id number] elevation GA. PROCEDURE NOTE: After obtaining informed consent, cardiac catheterization was initially attempted via the right radial artery. I obtained the right radial artery access uneventfully using modified Seldinger technique. However, we could not advance even a Glidewire across into the brachial artery. It appears as if there is a chronic occlusion with collaterals. Then, I tried to get an access in the right femoral artery. He has good pulses, but we were not able to pass the Glidewire into the femoral artery. I tried to get access on the left side, I could not, had a feeling that the patient has extensive peripheral arterial disease. I am going to have Dr. Le, the on-call executive receptionist attempt cardiac cath through the right radial artery access I already have. If not, he may attempt a left radial access. The patient received sedation in the form of Versed and fentanyl. I explained to the patient the technical challenges we are having with access. MMODL / IJN: [id number] /
[2022-06-08] MEDS ORDERED: HEPARIN SODIUM 1,000 UN/ML (10ML VL) IV ONE (10:13)
[2022-06-08] MEDS ORDERED: IOPAMIDOL-370 125ML BTL INJ ONE (10:20)
[2022-06-08] MEDS ORDERED: RX INFO: IV CONTRAST WAS GIVEN 1 EACH MISC MISCELLANE PRN (10:29)
[2022-06-08] MEDS ORDERED: SODIUM CHLORIDE 0.9% 1,000 ML IV SCH (10:30)
--- NOTE | 2022-06-08 10:37 | P.CARDCATH ---
Date of Procedure: 06/08/22 Description of Procedure: Cardiac Catheterization: The patient is a 77-year-old male who presented with symptoms of dyspnea, elevated troponin. He has a history of paroxysmal atrial fibrillation. He was evaluated by Dr. Shields and attempted cardiac catheterization from the right radial was unsuccessful in advancing the wire because it was subintimal, there was difficulty accessing the right femoral artery and the left femoral artery. Recommendations were made regarding cardiac catheterization, the risks and the complications were discussed with the patient who is in full understanding and agreement. Procedure Description: Patient was brought to cytology laboratory manager in fasting semi-sedated state after receiving Fentanyl and Benadryl achieiving moderate conscious sedated state. Using Xylocaine Anesthesia and Seldinger technique, a 6-Cymraes sheath was introduced in the left radial radial artery . Subsequently, selective coronary angiography was performed using a 5-Cymraes 4 bend Channing catheter. Multiple views of the coronary artery including hemiaxial views were obtained. The 5-Cymraes pigtail catheter was used to cross the aortic valve and LVEDP was calculated. Following that, catheter and sheath were removed. Hemostasis was obtained with deployment of TR band on both right and left radial . There was no immediate complication. Patient was returned to room in stable condition. Of note, the patient received a total of 3000 units of intravenous heparin as well as intra-arterial verapamil. Findings: Left main: This is a large size vessel, bifurcating into LAD and left circumflex, left main has no high-grade stenosis. LAD: This is a large size vessel, giving rise to a large proximal diagonal branch, the LAD tapers down in the distal third. It has a 30-40% plaque in the midsegment the distal segment has a 50% plaque before the apex, the vessel beyond that this morning. Left circumflex: This is a nondominant vessel giving rise to 2 obtuse marginal branch the second one is large in caliber. The mid left circumflex at the takeoff of the second obtuse marginal branch had a 3040% plaque, the rest of the vessel has no high-grade stenosis RCA: This is a large dominant vessel, bifurcating into PDA and PLV. The mid RCA has a 30% lesion, distal vessel is diffuse mild intimal disease with no high- grade stenosis Left Ventriculogram: Not performed Hemodynamics: There was no gradient across the aortic valve , LVEDP was 15-20 mmHg Conclusion: 1. 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 Right dominance Recommendations: The patient will continue on aggressive coronary risks modifications, I see no evidence of high-grade stenosis. Anticoagulation will be reinitiated.. The find ings and the recommendations were discussed with the patient and the family and they were in full understanding and agreement. Duration of sedation is 18 minutes.
--- NOTE | 2022-06-08 11:16 | CONS ---
CONSULTATION CHIEF COMPLAINT: Shortness of breath. HISTORY OF PRESENT ILLNESS: Mr. Alejandra is a 77-year-old gentleman with history of COPD, on home O2; paroxysmal atrial fibrillation; diabetes; hypertension, who is transferred to [facility] with elevated troponin suggestive of non ST-segment elevation NV. The patient has a history of hepatitis C. He takes Eliquis. An EKG revealed transient ST elevation in the anterolateral leads and subsequent EKGs have shown T-wave inversions, suggestive of ischemia. The patient also has had troponins that were mildly elevated. Labs sent out since this admission are pending, but labs that were done at [facility] showed elevated troponin. The troponin that was done here was elevated at 0.5. As the last admission in April also, he had mildly elevated trops. The patient was in the hospital in January of 2021 and was evaluated by my associate, Dr. Roman at that time. At the time of my evaluation, the patient is chest pain-free and hemodynamically stable. The plan at this stage is to continue the IV heparin, treat him with aspirin, nitrates, beta blockers, statins, and consider cardiac catheterization on him tomorrow. PAST MEDICAL HISTORY: Significant for severe COPD, on home O2; paroxysmal atrial fibrillation. CURRENT MEDICATIONS: Include: 1. Eliquis. 2. Prednisone. 3. Methimazole. 4. Albuterol. ALLERGIES: To baclofen. FAMILY HISTORY: Negative for premature coronary artery disease. SOCIAL HISTORY: Significant for smoking. There is no history of EtOH abuse or drug abuse. REVIEW OF SYSTEMS: 14 out of 14 review of systems has been performed. Pertinent are as documented. PHYSICAL EXAMINATION: GENERAL: On exam, he is comfortable at rest. VITAL SIGNS: Stable. CHEST: Reveals diminished air entry with bilateral rhonchi. HEART: Reveals first and second heart sounds. No gallop. No murmur. ABDOMEN: Soft. EXTREMITIES: Exam of his extremities did not reveal any edema. Peripheral pulses are palpable. ASSESSMENT: Acute [id number] elevation myocardial infarction, severe chronic obstructive pulmonary disease, and a history of hyperthyroidism. PLAN: I will treat the patient with heparin, aspirin, nitrates, beta blockers and statins. Check an echocardiogram on him tomorrow and we will consider cardiac catheterization on him. MMODL / IJN: [id number] /
--- NOTE | 2022-06-08 14:16 | CA ---
Transthoracic Echo Report Name: Deacon Alejandra Age: 77 Gender: M : 1945 Exam Date: 06/08/2022 13:05 Exam Location: [facility] Ht (in): 62 Wt (lb): 130 Ordering Physician: Boy Patel MD Attending/Referring Phys: Mandi Brito, [employer] Associate Priscila Brown RDCS Procedure CPT: Indications: N STEMI Cardiac Hx: Technical Quality: Contrast 1: Total Dose (mL): Contrast 2: Total Dose (mL): MEASUREMENTS (Male / Female) Normal Values 2D ECHO LV Diastolic Diameter PLAX 4.5 cm 4.2 - 5.9 / 3.9 - 5.3 cm LV Systolic Diameter PLAX 3.3 cm IVS Diastolic Thickness 1.2 cm 0.6 - 1.0 / 0.6 - 0.9 cm LVPW Diastolic Thickness 1.0 cm 0.6 - 1.0 / 0.6 - 0.9 cm LV Relative Wall Thickness 0.5 RV Internal Dim ED PLAX 3.3 cm M-MODE Aortic Root Diameter MM 3.2 cm LA Systolic Diameter MM 3.4 cm LA Ao Ratio MM 1.0 MV E Point Septal Separation 0.6 cm AV Cusp Separation MM 2.0 cm DOPPLER MV Area PHT 3.3 cm??? Mitral E Point Velocity 38.0 cm/s Mitral A Point Velocity 51.6 cm/s Mitral E to A Ratio 0.7 MV Deceleration Time 231.3 ms TR Peak Velocity 183.6 cm/s TR Peak Gradient 13.5 mmHg Right Ventricular Systolic Press 18.5 mmHg FINDINGS Left Ventricle Mildly increased septal wall thickness. Left ventricular ejection fraction is estimated at 30%. Anterseptel Hypokinesis, Apical Hypokinesis. Right Ventricle Normal right ventricular size and function. Right ventricular systolic pressure within normal limits. Right Atrium Normal right atrial size. Left Atrium Normal left atrial size. Mitral Valve Structurally normal mitral valve. Mild mitral regurgitation. Aortic Valve Trileaflet aortic valve. Tricuspid Valve Thickening tricuspid valve vs vegetation, clot. . Mild tricuspid regurgitation. Tyson recommended Pulmonic Valve Structurally normal pulmonic valve. Pericardium Normal pericardium. Aorta Normal size aortic root and proximal ascending aorta. CONCLUSIONS Severe LV systolic dysfunction with apical hypokinesis suggestive of apical ballooning syndrome Previewed by: Dr. Nadir Shields MD (Electronically Signed) Final Date: 08 June 2022 14:15
--- NOTE | 2022-06-08 19:35 | P.PN ---
Subjective Progress Note Date: 06/08/22 Principal diagnosis: NSTEMI Interval history-Mr. Alejandra is a 77-year-old male with a past medical history of atrial fibrillation diabetes mellitus thyroid disorder transferred from [facility] for elevated troponins. Today patient is comfortably lying in bed appears to be in no acute distress. Patient had a cardiac cath done this morning. Patient is a poor historian and is very hard of hearing. Patient denies having any chest pain or palpitations. Patient denies having any pain in his left wrist, which is his access to the cardiac cath. On reviewing his vitals patient's blood pressure 136/70 heart rate 60 respiratory rate 18 saturating at 100% on 4 L of nasal cannula. On reviewing the patient's labs white count of 3.9 hemoglobin 12.5 platelets 190. His cholesterol panel has been checked triglycerides 99, Total cholesterol 180, LDL 104, HDL 55. Objective - Vital Signs Vital signs: Vital Signs Temp 97.6 F 06/07/22 09:35 Pulse 68 06/08/22 11:46 Resp 18 06/08/22 11:46 BP 136/70 06/08/22 08:31 Pulse Ox 100 06/08/22 08:31 FiO2 Intake & Output 06/07/22 06/08/22 06/08/22 18:59 06:59 18:59 Intake Total 400 Balance 400 Weight 58.967 kg 58.967 kg Intake: IV 400 - Exam PHYSICAL EXAM GEN. APPEARANCE: alert, in no apparent distress HEAD EXAM: atraumatic, normocephalic, normal inspection EYE EXAM: normal appearance, PERRL, EOMI. ENT EXAM: Hard of hearing RESPIRATORY EXAM: normal lung sounds bilaterally. CARDIOVASCULAR EXAM: regular rate, normal rhythm, normal heart sounds. GI/ABDOMINAL EXAM: soft, normal bowel sounds. EXTREMITIES EXAM: no edema. Left wrist - cardiac cath site - clean, no bleeding NEUROLOGICAL EXAM: alert, oriented X 2 -3 PSYCHIATRIC EXAM: normal affect, normal mood - Labs CBC & Chem 7: 06/08/22 05:02 06/07/22 10:15 Labs: Abnormal Lab Results - Last 24 Hours (Table) 06/07/22 06/07/22 06/07/22 Range/Units 12:08 15:21 18:03 RBC (4.30-5.90) m/uL Hgb (13.0-17.5) gm/dL Hct (39.0-53.0) % Lymphocytes # (1.0-4.8) k/uL APTT 60.9 H (22.0-30.0) sec Troponin I 0.921 H* 0.936 H* (0.000-0.034) ng/mL 06/08/22 06/08/22 Range/Units 05:02 05:02 RBC 4.13 L (4.30-5.90) m/uL Hgb 12.5 L (13.0-17.5) gm/dL Hct 37.3 L (39.0-53.0) % Lymphocytes # 0.8 L (1.0-4.8) k/uL APTT 43.4 H (22.0-30.0) sec Troponin I (0.000-0.034) ng/mL Assessment and Plan Assessment: ASSESSMENT Non-ST elevation NM Atrial fibrillation Leukopenia Hypothyroidism Hard of hearing History of COPD Chronic hypoxic respiratory failure, admitted on oxygen History of renal cell carcinoma status post right nephrectomy CKD stage III Mild protein calorie malnutrition PLAN: Patient had a cardiac cath done this morning-it showed mild to moderate triple-vessel disease - cardiology suggested medical management with risk factor modification. Patient has been restarted on his anticoagulation Eliquis. He will be monitored today and possible discharge..
[2022-06-09] MEDS: ALBUTEROL NEBULIZED 2.5 MG/3 ML INHALATION PRN (04:05)
[2022-06-09] MEDS ORDERED: HEPARIN SODIUM,PORCINE 10,000 UNIT in SODIUM CHLORIDE 0.9% 1,000 ML IRRIGATION PRN (07:00)
[2022-06-09] MEDS ORDERED: HEPARIN SODIUM,PORCINE 2,500 UNIT in SODIUM CHLORIDE 0.9% 250 ML IRRIGATION PRN (07:00)
[2022-06-09 07:23] LABS: Calcium 7.8 mg/dL (8.4-10.2); Potassium 4.6 mmol/L (3.5-5.1)
[2022-06-09] MEDS: IPRATROPIUM-ALBUTEROL 3 ML NEB INHALATION SCH ×2 (07:51→10:56)
[2022-06-09] MEDS: methIMAzole 5 MG TAB PO SCH (08:43)
[2022-06-09] MEDS: ATORVASTATIN 40 MG TAB PO SCH (08:43)
[2022-06-09] MEDS: METOPROLOL SUCCINATE (ER) 25 MG TAB.ER.24H PO SCH (08:43)
[2022-06-09] MEDS ORDERED: ASPIRIN 81 MG PO SCH (09:00)
[2022-06-09] MEDS ORDERED: APIXABAN 5 MG TAB PO SCH (09:00)
[2022-06-09 12:08] VITALS: BP 121/75; PULSE 64; RESP 16; TEMP 98.1
[2022-06-09] MEDS ORDERED: LOSARTAN 25 MG TAB PO SCH (21:00)
--- NOTE | 2022-06-10 03:11 | PN ---
PROGRESS NOTE SUBJECTIVE: Mr. Alejandra was admitted with episode of chest pain, shortness of breath, mild troponin elevation, underwent cardiac cath from left radial approach which did not reveal any significant obstructive CAD. This morning, he is doing well. No chest pain or shortness of breath. He has paroxysmal atrial fibrillation, he is on Eliquis. I will discontinue aspirin. His cath sites are clean and dry. PHYSICAL EXAMINATION: VITAL SIGNS: Stable. NECK: No JVD. HEART: S1, S2 heard normally, short systolic murmur. LUNGS: Clear. ABDOMEN: Unremarkable. LOWER EXTREMITIES: Unremarkable. He can be discharged today and will see Dr. Shields in [place] in 1 week. MMODL / IJN: [id number] /
--- NOTE | 2022-06-10 04:02 | PN ---
see previou note MTDD
--- NOTE | 2022-06-11 13:57 | P.DS ---
Providers Date of admission: 06/07/22 14:19 Expected date of discharge: 06/09/22 Attending physician: Vito Hodge Consults: 06/07/22 13:41 Consult Physician Stat Consulting Provider: Nadir Shields Consult Reason/Comments: NSTEMI Do you want consulting provider notified?: Already Contacted Primary care physician: [facility] Course: Chief Complaint: Transferred from [facility] for troponin elevation. HPI - Mr. Alejandra is a 77-year-old male with a past medical history of atrial fibrillation, diabetes mellitus, thyroid disorder transferred from [facility] for elevated troponin. Mr. Alejandra is a poor historian and has hearing impairment so obtaining history was limited by these factors. As per discussion with the nursing staff and his son who was at the bedside patient went to [facility] for difficulty in breathing. He was noted to have slight elevation in troponins, so they wanted him and a repeat troponin was still elevated so they transferred him to [facility] for further evaluation. They also noted that he had T wave changes in leads V3 to V6 and also in the inferior leads II, III and aVF. Patient denies having any chest pain or palpitations. He has history of atrial fibrillation and is on anticoagulation at home with Eliquis. Patient denied having any fevers chills or rigors. No abdominal pain nausea vomiting or diarrhea. No UTI-like symptoms. He denies having any loss of consciousness seizure-like activity or visual changes. In the ER at the time of admissions patient's vitals temperature 97.6 heart rate 83 respiratory 20 blood pressure 123/73 saturating at 100% on 4 L of nasal cannula. On reviewing his labs white count of 2.8 hemoglobin 12.9 platelets 164. Sodium 136 potassium 4.6 chloride 105 bicarb 26 BUN 27 creatinine 1.25. Troponin of 0.843, 0.921, 0.936. The patient has been started on heparin drip with cardiology consult. Hospital Course - As the patient had elevated troponins, cardiology was consulted and the patient was taken to [facility] on 06/08/2022. Cardiac catheterization showed mild to moderate triple-vessel disease and cardiology suggested medical management with risk factor modification. Patient was observed 24 hours after the procedure and was stable. Patient had an echocardiogram done on 06/08/2022 showing ejection fraction of 30% with anteroseptal and apical hypokinesis suggesting apical ballooning syndrome.He was deemed to be stable to discharge by cardiology services. So the patient was discharged home in a stable condition. Patient's vitals at the time of discharge Temperature 98.1, heart rate 64, respiratory 16, blood pressure 121/75 saturating at 99% on 5 L of nasal cannula PHYSICAL EXAM GEN. APPEARANCE: alert, in no apparent distress ENT EXAM: Hard of hearing RESPIRATORY EXAM: normal lung sounds bilaterally. CARDIOVASCULAR EXAM: normal heart sounds. GI/ABDOMINAL EXAM: soft, normal bowel sounds. EXTREMITIES EXAM: no edema. Left and Right wrist - cardiac cath sites - clean, no bleeding NEUROLOGICAL EXAM: alert, oriented X 2 -3 PSYCHIATRIC EXAM: normal affect, normal moodhome in a stable condition. DISCHARGE DIAGNOSIS Non-ST elevation [place] Atrial fibrillation Leukopenia Hypothyroidism Hard of hearing History of COPD Chronic hypoxic respiratory failure, admitted on oxygen History of renal cell carcinoma status post right nephrectomy CKD stage III Mild protein calorie malnutrition PLAN: Patient is discharged home at his baseline status. He is advised to follow-up with his primary care physician in 2 to 3 days. And also advised follow-up with cardiology in 1 to 2 weeks Patient Condition at Discharge: Stable Plan - Discharge Summary New Discharge Prescriptions: New Nitroglycerin Sl Tabs [Nitrostat] 0.4 mg SUBLINGUAL Q5M PRN #30 tab PRN Reason: Chest Pain Metoprolol Succinate (ER) [Toprol XL] 25 mg PO BID #30 tab Losartan [Cozaar] 25 mg PO HS #30 tab Atorvastatin [Lipitor] 40 mg PO DAILY #30 tab Continue Ipratropium-Albuterol Nebulize [Duoneb 0.5 mg-3 mg/3 ml Soln] 3 ml INHALATION RT-QID Apixaban [Eliquis] 5 mg PO BID Loperamide [Imodium] 2 mg PO Q4H PRN PRN Reason: Diarrhea methIMAzole 10 mg PO DAILY Discharge Medication List Apixaban [Eliquis] 5 mg PO BID 04/16/22 [History] Ipratropium-Albuterol Nebulize [Duoneb 0.5 mg-3 mg/3 ml Soln] 3 ml INHALATION RT-QID 04/16/22 [History] methIMAzole 10 mg PO DAILY 04/16/22 [History] Loperamide [Imodium] 2 mg PO Q4H PRN 06/07/22 [History] Atorvastatin [Lipitor] 40 mg PO DAILY #30 tab 06/09/22 [Rx] Losartan [Cozaar] 25 mg PO HS #30 tab 06/09/22 [Rx] Metoprolol Succinate (ER) [Toprol XL] 25 mg PO BID #30 tab 06/09/22 [Rx] Nitroglycerin Sl Tabs [Nitrostat] 0.4 mg SUBLINGUAL Q5M PRN #30 tab 06/09/22 [Rx] Follow up Appointment(s)/Referral(s): Oswaldo Duncan NPC [Family Provider] - 06/16/22 2:00 pm Nadir Shields MD [STAFF PHYSICIAN] - 2 Weeks ([address] [place] [address]; office will call you to schedule. ) Patient Instructions/Handouts: *Surgery [facility] - After Heart Catheterization - Child[employer] Development Teacher Instructions, Heart Attack (DC) Discharge Disposition: HOME SELF-CARE
== END 2022-06-09 13:59 | disposition home or self-care (01) | DRG 281 ==
LOC: EC 09:31 → 3SCARD 14:19
PROVIDERS: ADMIT Internal Medicine; ATTEND Internal Medicine
PROC: 04JY3ZZ Inspection of Lower Artery, Percutaneous Approach (ICD-10-PCS; 2022-06-08)
PROC: 03JY3ZZ Inspection of Upper Artery, Percutaneous Approach (ICD-10-PCS; 2022-06-08)
PROC: 4A023N7 Measurement of Cardiac Sampling and Pressure, Left Heart, Percutaneous Approach (ICD-10-PCS; principal; 2022-06-08 10:00)
PROC: B2111ZZ Fluoroscopy of Multiple Coronary Arteries using Low Osmolar Contrast (ICD-10-PCS; principal; 2022-06-08 10:00)
DX: I21.4 Non-ST elevation (NSTEMI) myocardial infarction (principal); E44.1 Mild protein-calorie malnutrition; J96.11 Chronic respiratory failure with hypoxia; Z68.1 Body mass index [BMI] 19.9 or less, adult; J44.9 Chronic obstructive pulmonary disease, unspecified; I48.0 Paroxysmal atrial fibrillation; E11.22 Type 2 diabetes mellitus with diabetic chronic kidney disease; E11.51 Type 2 diabetes mellitus with diabetic peripheral angiopathy without gangrene; I12.9 Hypertensive chronic kidney disease with stage 1 through stage 4 chronic kidney disease, or unspecified chronic kidney disease; N18.30 Chronic kidney disease, stage 3 unspecified; I48.91 Unspecified atrial fibrillation; D72.819 Decreased white blood cell count, unspecified; E03.9 Hypothyroidism, unspecified; H91.90 Unspecified hearing loss, unspecified ear; Z86.19 Personal history of other infectious and parasitic diseases; Z99.81 Dependence on supplemental oxygen; Z79.01 Long term (current) use of anticoagulants; Z90.5 Acquired absence of kidney; Z85.528 Personal history of other malignant neoplasm of kidney; Z79.899 Other long term (current) drug therapy; Z87.828 Personal history of other (healed) physical injury and trauma; Z87.891 Personal history of nicotine dependence; Z88.6 Allergy status to analgesic agent
CPT/HCPCS: 36415; 80048; 80053; 80061; 84484; 85025; 85610; 85730; 93005; 93306; 93458; 94640; 96365; 96366; 99291

== ENCOUNTER 2022-06-09 19:40 | Inpatient (IN) | payer MEDICARE, OTHER ==
[~2022-06-09 19:40] MED LIST: HEPARIN SODIUM 1,000 UN/ML (10ML VL) IV ONE
[2022-06-09] MEDS ORDERED: HEPARIN SODIUM 1,000 UN/ML (10ML VL) ONE (20:16)
[2022-06-09] MEDS ORDERED: IV FLUID CONTINUATION 1,000 ML IV ONE (20:29)
[2022-06-09] MEDS ORDERED: LIDOCAINE 1% INJ 10MG/ML (5 ML VIAL-PF) SQ ONE (20:34)
[2022-06-09] MEDS ORDERED: VERAPAMIL SYRINGE (5 MG/10 ML) INTRAARTER ONE (20:36)
[2022-06-09] MEDS ORDERED: NITROGLYCERIN 1000MCG/10ML SYRINGE INTRACORON ONE (21:04)
[2022-06-09] MEDS ORDERED: CLOPIDOGREL 75 MG TAB ONE (21:07)
[2022-06-09] MEDS ORDERED: CLOPIDOGREL 75 MG TAB PO ONE (21:08)
[2022-06-09] MEDS ORDERED: IOPAMIDOL-370 125ML BTL INJ ONE (21:08)
[2022-06-09] MEDS ORDERED: NITROGLYCERIN SL TABS 0.4 MG TAB SUBLINGUAL PRN (21:14)
[2022-06-09] MEDS ORDERED: ATROPINE SULFATE 0.1 MG/ML 10ML SYRINGE IV PRN (21:14)
[2022-06-09] MEDS ORDERED: ZOLPIDEM 5 MG TAB PO PRN (21:14)
[2022-06-09] MEDS ORDERED: RX INFO: IV CONTRAST WAS GIVEN 1 EACH MISC MISCELLANE PRN (21:14)
[2022-06-09] MEDS ORDERED: MAG HYDROX/AL HYDROX/SIMETH 30 ML CUP PO PRN (21:14)
[2022-06-09] MEDS ORDERED: SODIUM CHLORIDE 0.9% 1,000 ML in EMPTY BAG 1 BAG IV SCH (21:15)
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
--- NOTE | 2022-06-09 21:25 | P.PCN ---
Date of Procedure: 06/09/22 Operative Findings: CARDIAC CATHETERIZATION AND PCI OF THE LAD PERFORMING PHYSICIAN: Derek Shah MD, [facility] PROCEDURE PERFORMED: 1. Selective right and left coronary angiogram 2. Left heart catheterization 3. IFR of the LAD 4. Successful stenting of the mid LAD using 3.0 x 18 mm Xience ROBIN with an excellent angiographic results INDICATION: This is a 77-year-old gentleman who presented to the hospital with shortness of breath and EKG concerning for anterolateral STEMI COMPLICATION: None APPROACH: Right radial artery LEVEL OF SEDATION: Moderate with a sedation length of 36 minutes PROCEDURE DESCRIPTION: After obtaining an informed consent, the patient was brought to cardiac animal laboratory technician. Local anesthesia was performed using lidocaine subcutaneously. The left radial artery was cannulated using Seldinger technique, the guidewire passed easily, following that we advanced a 5-Cypriot sheath dilator assembly, the wire and dilator were removed and sheath was flushed. Following that, 2 mg of verapamil along with 3000 unit heparin were given. Selective right and left coronary angiogram using a 6-Cypriot JR4 and JL 3.5 catheters. Following that we did left heart catheterization using 6-Cypriot pigtail catheter. Then FFR and subsequently PCI of the LAD was performed The procedure was completed there was no complication. SELECTIVE CORONARY ANGIOGRAM: The right coronary artery: Large caliber vessel nondominant vessel. The RCA is calcified was mild to moderate diffuse disease with no high-grade stenosis identified. Distally bifurcates into PDA and PLV branches both appear to have mild disease only. Left main: Calcified was mild disease only. Bifurcates into a LCx and LAD The left circumflex: Large caliber vessel nondominant vessel. The LCx has also mild to moderate nonobstructive coronary artery disease. The left anterior descending artery: The proximal LAD has mild disease only. The mid LAD does have a hinge point with a lesion appeared to be in the range of 50-60%. We did perform iFR and that came in to be ischemic 0.78. The LAD distally has mild to moderate diffuse disease HEMODYNAMICS: The LVEDP was 8 mmHg was no significant gradient across aortic valve iFR OF THE lad AND PCI OF THE LAD: After zeroing the Doppler wire and equalizing between the Doppler wire and the guiding catheter which was JL 3.5 guiding catheter we did wire the LAD. I did iFR and that came in to be ischemic 0.78. Subsequently I did a predilatation using 2.5 mm balloon before I deployed 3.0 x 18 mm stent where the stent was positioned under fluoroscopy guidance and deployed under 14 reina for 20 seconds. The following angiogram showed good angiographic results and the procedure was completed with no complications CONCLUSION: 1. Intermediate disease involving the mid LAD. iFR=0.78. Successful stenting of the LAD was performed with a good angiographic results 2. Normal left-sided filling pressures POSTPROCEDURE MANAGEMENT: Aggressive cholesterol control and anti-ischemic medications as well as cardiomyopathy medication
[2022-06-09 21:39] LABS: Glucose,Whole Blood 133 mg/dL (70-110)
[2022-06-10] MEDS ORDERED: METOPROLOL SUCCINATE (ER) 25 MG TAB.ER.24H PO SCH (09:00)
[2022-06-10] MEDS: CLOPIDOGREL 75 MG TAB PO SCH (09:33)
[2022-06-10] MEDS: ASPIRIN 81 MG PO SCH (09:33)
[2022-06-10] MEDS: ATORVASTATIN 40 MG TAB PO SCH (09:33)
[2022-06-10] MEDS: METOPROLOL TARTRATE 25 MG TAB PO SCH ×2 (09:34→20:56)
[2022-06-10 09:35] LABS: HCT 44.4 % (39.0-53.0); HGB 14.1 gm/dL (13.0-17.5); Hypochromasia Slight; MCH 30.5 pg (25.0-35.0); MCHC 31.8 g/dL (31.0-37.0); Mean Platelet Volume 8.9; Platelet Count 267 k/uL (150-450); RBC 4.62 m/uL (4.30-5.90); RDW 12.9 % (11.5-15.5); WBC 6.7 k/uL (3.8-10.6)
[2022-06-10] MEDS: APIXABAN 2.5 MG TABLET PO SCH ×2 (09:36→20:55)
[2022-06-10] MEDS: IPRATROPIUM-ALBUTEROL 3 ML NEB INHALATION PRN ×4 (09:44→19:51)
[2022-06-10 09:56] LABS: Potassium 5.1 mmol/L (3.5-5.1)
[2022-06-10 09:57] LABS: Calcium 7.9 mg/dL (8.4-10.2)
--- NOTE | 2022-06-10 11:02 | PN ---
PROGRESS NOTE Mr. Alejandra had a cardiac cath on the by Dr. Roman from left radial approach. He had a moderate disease in LAD, was advised medical therapy. However, he went home and went to [facility] apparently, had chest pain and shortness of breath and there was ST elevation in the anterior leads. Dr. Shah performed a cardiac catheterization and IFR, which was abnormal. He went there and stented the mid LAD, performed stenting of mid LAD with a good angiographic result. The patient is doing well this morning. We will continue dual antiplatelet therapy. Left radial site is clean and dry. Plan is to continue current medical regimen, increase activity, and move him to telemetry. He has history of paroxysmal atrial fibrillation and also CAD with stents and a decreased ejection fraction. Prognosis remains guarded. MMODL / IJN: [id number] /
--- NOTE | 2022-06-10 11:04 | CA ---
Transthoracic Echo Report Name: Deacon Alejandra Age: 77 Gender: M : 1945 Exam Date: 06/10/2022 08:01 Exam Location: [facility] Ht (in): 62 Wt (lb): 139 Ordering Physician: Derek Shah MD ([id number]) Attending/Referring Phys: Medical Lab Specialist Priscila Brown RDCS Procedure CPT: Indications: ACS Cardiac Hx: Echo done 06/08/22: Limited Echo for EF Technical Quality: Contrast 1: Total Dose (mL): Contrast 2: Total Dose (mL): MEASUREMENTS (Male / Female) Normal Values FINDINGS Left Ventricle left ventricular ejection fraction is estimated at 30- 35 %. Mid anteroseptal and anteroapical severe hypokinesis. Right Ventricle Right Atrium Left Atrium Mitral Valve Aortic Valve Tricuspid Valve Pulmonic Valve Pericardium Aorta CONCLUSIONS 1. Severely impaired left ventricle systolic function 2. Segmental wall motion abnormality consistent with coronary artery disease in the LAD distribution Previewed by: Dr. Michael Le MD (Electronically Signed) Final Date: 10 June 2022 11:04
[2022-06-10 12:38] VITALS: BMI 19.3
[2022-06-10] MEDS ORDERED: FUROSEMIDE 10 MG/ML 2 ML VIAL IV ONE (16:49)
--- NOTE | 2022-06-10 17:18 | XR ---
EXAMINATION TYPE: XR chest 1V portable DATE OF EXAM: 06/10/2022 5:09 PM COMPARISON: Chest radiographs from 05/03/2022 TECHNIQUE: XR chest 1V portable Portable AP radiograph of the chest. CLINICAL INDICATION:Male, 77 years old with history of pulmonary congestion; FINDINGS: Lungs/Pleura: There is flattening of the diaphragm with increased lucency of the lungs. No evidence o f pneumothorax, pleural effusion or focal consolidation. Pulmonary vascularity: Unremarkable. Heart/mediastinum: Cardiomediastinal silhouette is unremarkable. Musculoskeletal: No acute osseous pathology. IMPRESSION: 1. No acute cardiopulmonary disease process. 2. COPD changes.
[2022-06-10] MEDS: BUDESONIDE 1 MG/2 ML NEBU INHALATION SCH (19:51)
[2022-06-10] MEDS ORDERED: IPRATROPIUM-ALBUTEROL 3 ML NEB INHALATION PRN (20:22)
[2022-06-10] MEDS: LOSARTAN 25 MG TAB PO SCH (20:55)
[2022-06-10] MEDS: IPRATROPIUM-ALBUTEROL 3 ML NEB INHALATION SCH (23:32)
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
[2022-06-11] MEDS: IPRATROPIUM-ALBUTEROL 3 ML NEB INHALATION SCH ×6 (03:50→23:26)
[2022-06-11] MEDS: BUDESONIDE 1 MG/2 ML NEBU INHALATION SCH ×2 (08:20→19:14)
[2022-06-11] MEDS: FORMOTEROL FUMARATE 20 MCG/2 ML NEBU INHALATION SCH ×2 (08:20→19:14)
[2022-06-11] MEDS: ASPIRIN 81 MG PO SCH (08:55)
[2022-06-11] MEDS: METOPROLOL TARTRATE 25 MG TAB PO SCH ×2 (08:55→20:14)
[2022-06-11] MEDS: ATORVASTATIN 40 MG TAB PO SCH (08:55)
[2022-06-11] MEDS: methIMAzole 5 MG TAB PO SCH (08:56)
[2022-06-11] MEDS: APIXABAN 2.5 MG TABLET PO SCH ×2 (08:56→20:14)
[2022-06-11] MEDS: FAMOTIDINE 20 MG TAB PO SCH (08:56)
[2022-06-11] MEDS: CLOPIDOGREL 75 MG TAB PO SCH (08:59)
[2022-06-11] MEDS: methylPREDNISolone SOD SUCCI 125 MG/2 ML VIAL IV SCH ×3 (09:49→23:02)
[2022-06-11 10:03] LABS: Basophils % (A) 0 %; Eosinophils % (A) 0 %; HCT 42.3 % (39.0-53.0); HGB 13.7 gm/dL (13.0-17.5); Lymphocytes # (A) 0.9 k/uL (1.0-4.8); Lymphocytes % (A) 9 %; MCH 29.8 pg (25.0-35.0); MCHC 32.3 g/dL (31.0-37.0); MCV 92.3 fL (80.0-100.0); Mean Platelet Volume 8.7; Monocytes # (A) 0.8 k/uL (0-1.0); Monocytes % (A) 8 %; Neutrophils # (A) 7.9 k/uL (1.3-7.7); Neutrophils % (A) 81 %; Platelet Count 279 k/uL (150-450); RBC 4.58 m/uL (4.30-5.90); RDW 12.9 % (11.5-15.5); WBC 9.8 k/uL (3.8-10.6)
[2022-06-11 10:25] LABS: Potassium 4.3 mmol/L (3.5-5.1)
[2022-06-11] MEDS: SODIUM CHLORIDE 0.9% 1,000 ML IV SCH (12:18)
[2022-06-11 20:06] LABS: Glucose,Whole Blood 182 mg/dL (70-110)
--- NOTE | 2022-06-11 20:13 | P.PN ---
Subjective Progress Note Date: 06/11/22 (delayed charting seen at 0915) Patient is a 77-year-old male with known atrial fibrillation anticoagulated with eliquis, hyperthyroidism, diabetes mellitus type 2 and prior smoking history on home O2 who presented to the hospital due to worsening shortness of breath. Patient was recently admitted from 06/07 through 06/09 where he underwent cardiac catheterization on 06/08 which demonstrated mild to moderate triple- vessel disease that is right-sided dominant. He is on have congestive heart failure with an ejection fraction of 35%. At that time they recommended medical management. He was discharged in the morning of 1227 and 3% in the evening of 06/09 with worsening chest pain. He underwent urgent cardiac catheterization which resulted in successful stenting of the mid LAD. Patient seen and examined at bedside. He complains of shortness of breath which is unrelieved from yesterday. He also complains of some chest discomfort. He denies any nausea or vomiting. He is very hard of hearing. General: nontoxic, mild distress, appears at stated age Derm: warm, dry Head: atraumatic, normocephalic, symmetric Eyes: EOMI, no lid lag, anicteric sclera Mouth: no lip lesion, mucus membranes moist Cardiovascular: S1S2 irreg, no murmur, positive posterior tibial pulse bilater al, Lungs: Rhonchi bilateral , no accessory muscle use Abdominal: soft, nontender to palpation, no guarding, no appreciable organomegaly Ext: no gross muscle atrophy, no edema, no contractures Neuro: CN II-XI grossly intact, no focal neuro deficits Psych: Alert, oriented, appropriate affect 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% Paroxysmal atrial fibrillation -Plavix, aspirin, eliquis - lopressor, cozaar - add aldactone once renal function is stable - cardio recs - repeat echo wtih stable EF COPD with mild exacerbation Chronic hypoxic respiratory failure on 5 L History of tobacco abuse -Bronchodilators - solumedrol Hyperthyroidism -Continue methimazole consult PT/OT, DVT prophylaxis: eliquis Discussed with: patient, nursing Anticipated discharge: pending clinical course Anticipated discharge place: home A total of 35 minutes was spent on the care of this complex patient more than 50% of the time was spent in counseling and care coordination. Objective - Vital Signs Vital signs: Vital Signs Temp 97.9 F 06/11/22 19:41 Pulse 84 06/11/22 19:42 Resp 20 06/11/22 19:41 BP 92/55 06/11/22 19:41 Pulse Ox 94 L 06/11/22 19:41 FiO2 Intake & Output 06/11/22 06/11/22 06/12/22 06:59 18:59 06:59 Intake Total 720 Output Total 150 Balance 570 Weight 44.5 kg Intake: Oral 720 Output: Urine 150 Other: Voiding Method Urinal Urinal # Voids 200 # Bowel Movements 0 - Labs CBC & Chem 7: 06/11/22 09:04 06/11/22 09:04 Labs: Abnormal Lab Results - Last 24 Hours (Table) 06/11/22 06/11/22 06/11/22 Range/Units 09:04 09:04 20:05 Neutrophils # 7.9 H (1.3-7.7) k/uL Lymphocytes # 0.9 L (1.0-4.8) k/uL Sodium 133 L (137-145) mmol/L BUN 28 H (9-20) mg/dL Creatinine 1.42 H (0.66-1.25) mg/dL Glucose 109 H (74-99) mg/dL POC Glucose (mg/dL) 182 H (70-110) mg/dL Calcium 8.0 L (8.4-10.2) mg/dL
[2022-06-11] MEDS: LOSARTAN 25 MG TAB PO SCH (20:14)
--- NOTE | 2022-06-12 01:58 | PN ---
PROGRESS NOTE SUBJECTIVE: Mr. Alejandra is a gentleman who had a stenting of LAD performed about 24 hours ago after IFR revealed significant abnormality. This gentleman is advised to have a repeat troponin. We will discontinue aspirin and place him on Eliquis 2.5 mg b.i.d. and Plavix. He is feeling better. Cardiac-diamond, no chest pain, but had shortness of breath. He is on steroids. He is going to be seen by Pulmonary. OBJECTIVE: VITAL SIGNS: Stable. NECK: JVD 1 cm. No carotid bruit. HEART: S1, S2 heard normally. LUNGS: Reveal diminished air entry. ABDOMEN: Soft, nontender. Cath site is clean and dry with good pulse. MMODL / IJN: [id number] /
[2022-06-12] MEDS: IPRATROPIUM-ALBUTEROL 3 ML NEB INHALATION SCH ×5 (03:42→20:25)
[2022-06-12 06:13] LABS: Glucose,Whole Blood 155 mg/dL (70-110)
[2022-06-12] MEDS: BUDESONIDE 1 MG/2 ML NEBU INHALATION SCH ×2 (07:19→20:25)
[2022-06-12] MEDS: FORMOTEROL FUMARATE 20 MCG/2 ML NEBU INHALATION SCH ×2 (07:19→20:25)
[2022-06-12] MEDS ORDERED: METOPROLOL TARTRATE 5 MG/5 ML VIAL IVP STA (09:31)
[2022-06-12] MEDS: FAMOTIDINE 20 MG TAB PO SCH (09:53)
[2022-06-12] MEDS: CLOPIDOGREL 75 MG TAB PO SCH (09:53)
[2022-06-12] MEDS: methylPREDNISolone SOD SUCCI 125 MG/2 ML VIAL IV SCH ×3 (09:54→23:05)
[2022-06-12] MEDS: APIXABAN 2.5 MG TABLET PO SCH ×2 (09:54→20:18)
[2022-06-12] MEDS: methIMAzole 5 MG TAB PO SCH (09:54)
[2022-06-12] MEDS: ATORVASTATIN 40 MG TAB PO SCH (09:54)
[2022-06-12 10:22] LABS: HCT 38.6 % (39.0-53.0); HGB 13.1 gm/dL (13.0-17.5); MCHC 33.9 g/dL (31.0-37.0); MCV 91.3 fL (80.0-100.0); Mean Platelet Volume 8.9; Platelet Count 290 k/uL (150-450); RBC 4.23 m/uL (4.30-5.90); RDW 13.4 % (11.5-15.5); WBC 9.9 k/uL (3.8-10.6)
[2022-06-12 10:34] LABS: Potassium 4.3 mmol/L (3.5-5.1)
[2022-06-12 11:59] LABS: Glucose,Whole Blood 103 mg/dL (70-110)
[2022-06-12] MEDS: METOPROLOL TARTRATE 25 MG TAB PO SCH ×2 (13:57→20:18)
[2022-06-12] MEDS: SODIUM CHLORIDE 0.9% 1,000 ML IV SCH ×3 (13:58→18:21)
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
[2022-06-12 17:10] LABS: Glucose,Whole Blood 199 mg/dL (70-110)
[2022-06-12 20:12] LABS: Glucose,Whole Blood 214 mg/dL (70-110)
--- NOTE | 2022-06-12 20:18 | P.PN ---
Subjective Progress Note Date: 06/12/22 (delayed charting seen at 0945) Patient is a 77-year-old male with known atrial fibrillation anticoagulated with eliquis, hyperthyroidism, diabetes mellitus type 2 and prior smoking history on home O2 who presented to the hospital due to worsening shortness of breath. Patient was recently admitted from 06/07 through 06/09 where he underwent cardiac catheterization on 06/08 which demonstrated mild to moderate triple- vessel disease that is right-sided dominant. He is on have congestive heart failure with an ejection fraction of 35%. At that time they recommended medical management. He was discharged in the morning of 1227 and 3% in the evening of 06/09 with worsening chest pain. He underwent urgent cardiac catheterization which resulted in successful stenting of the mid LAD. He developed wheezing and was started on treatment for COPD exacerbation. He went into A fib with RVR on the morning of 06/12. Patient seen and examined at bedside. Felling weak and dizzy. No chest pain, No shortness of breath. General: nontoxic, mild distress, appears at stated age Derm: warm, dry Head: atraumatic, normocephalic, symmetric Eyes: EOMI, no lid lag, anicteric sclera Mouth: no lip lesion, mucus membranes moist Cardiovascular: S1S2 irreg, no murmur, positive posterior tibial pulse bilateral, Lungs: Rhonchi bilateral , no accessory muscle use Abdominal: soft, nontender to palpation, no guarding, no appreciable organomegaly Ext: no gross muscle atrophy, no edema, no contractures Neuro: CN II-XI grossly intact, no focal neuro deficits Psych: Alert, oriented, appropriate affect 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% Paroxysmal atrial fibrillation now with RVR - IV metoprolol X1 - Plavix, aspirin, eliquis - lopressor - cozaar discontinued due to hypotension - add aldactone once renal function is stable - cardio recs - repeat echo with stable EF COPD with mild exacerbation Chronic hypoxic respiratory failure on 5 L History of tobacco abuse -Bronchodilators - solumedrol Hyperthyroidism -Continue methimazole consult PT/OT, poor prognosis DVT prophylaxis: eliquis Discussed with: patient, nursing Anticipated discharge: pending clinical course Anticipated discharge place: [place] A total of 35 minutes was spent on the care of this complex patient more than 50% of the time was spent in counseling and care coordination. Objective - Vital Signs Vital signs: Vital Signs Temp 97.3 F L 06/12/22 19:34 Pulse 85 06/12/22 19:34 Resp 24 06/12/22 19:34 BP 92/53 06/12/22 19:34 Pulse Ox 97 06/12/22 19:34 FiO2 Intake & Output 06/12/22 06/12/22 06/13/22 06:59 18:59 06:59 Intake Total 718 Output Total 200 400 Balance -200 318 Intake: Oral 718 Output: Urine 200 400 Other: Voiding Method Urinal Urinal - Labs CBC & Chem 7: 06/12/22 09:50 06/12/22 09:50 Labs: Abnormal Lab Results - Last 24 Hours (Table) 06/12/22 06/12/22 06/12/22 Range/Units 06:10 09:50 09:50 RBC 4.23 L (4.30-5.90) m/uL Hct 38.6 L (39.0-53.0) % Sodium 135 L (137-145) mmol/L BUN 29 H (9-20) mg/dL Creatinine 1.40 H (0.66-1.25) mg/dL Glucose 167 H (74-99) mg/dL POC Glucose (mg/dL) 155 H (70-110) mg/dL Calcium 8.0 L (8.4-10.2) mg/dL 06/12/22 Range/Units 16:53 RBC (4.30-5.90) m/uL Hct (39.0-53.0) % Sodium (137-145) mmol/L BUN (9-20) mg/dL Creatinine (0.66-1.25) mg/dL Glucose (74-99) mg/dL POC Glucose (mg/dL) 199 H (70-110) mg/dL Calcium (8.4-10.2) mg/dL
--- NOTE | 2022-06-12 20:52 | PN ---
PROGRESS NOTE SUBJECTIVE: This is a 77-year-old gentleman with COPD and smoking, who came into the hospital with ST-elevation NH, underwent stenting of mid LAD by Dr. Shah 2 days ago. Repeat echo revealed extensive anteroapical septal severe hypokinesia. This morning, he is slightly hypotensive, has no symptoms. His shortness of breath has improved somewhat. We have requested a Pulmonary evaluation. He seems a bit dehydrated. I am recommending that we will hydrate him cautiously. Discontinue the losartan since his blood pressure has been low. Continue a combination of Plavix and Eliquis and see how he does. I reviewed the EKG from yesterday. It is actually sinus rhythm with PACs, no atrial fibrillation, but the patient does have history of paroxysmal atrial fibrillation. PHYSICAL EXAMINATION: VITAL SIGNS: Revealed blood pressure of 90/60. Pulse rate about 70 per minute, regular. NECK: JVD not evident. HEART: S1 and S2 heard normally. Short systolic murmur at the base. Rhythm is regular. LUNGS: Reveal diminished air entry in bilateral lung flores. ABDOMEN: Soft. EXTREMITIES: Lower extremities reveal diminished pulses. CENTRAL NERVOUS SYSTEM: Normal. IMPRESSION: 1. Recent anterior wall myocardial infarction and stenting of left anterior descending. 2. Chronic obstructive pulmonary disease. 3. History of ischemic cardiomyopathy with ejection fraction in the 35% range. RECOMMENDATIONS: Cautious hydration. Discontinue losartan and see how he does. Awaiting Pulmonary input. DONN / B[place]LY[place]: [id number] /
[2022-06-13] MEDS: IPRATROPIUM-ALBUTEROL 3 ML NEB INHALATION SCH ×7 (03:08→19:26)
[2022-06-13] MEDS: SODIUM CHLORIDE 0.9% 1,000 ML IV SCH ×4 (05:11→17:06)
[2022-06-13 06:14] LABS: Glucose,Whole Blood 183 mg/dL (70-110)
--- NOTE | 2022-06-13 06:50 | P.PN ---
Subjective Progress Note Date: 06/13/22 Principal diagnosis: CAD with prior stenting of the LAD The patient is a 77-year-old gentleman who was admitted to the hospital was acute coronary syndrome and he underwent stenting of the LAD. Beside that he does have history of paroxysmal atrial fibrillation and cardiomyopathy and hypertension and dyslipidemia and COPD. June [id number] He was seen this morning. He remains hemodynamically stable. He remains asymptomatic beside underlying shortness of breath which is chronic. No dizziness or lightheadedness and no presyncope or syncope. He has been maintaining normal sinus mechanism. Currently he is on antiplatelet as well as anticoagulation. From the cardiovascular standpoint of view, the patient potentially can be discharged home in the next 12-24 hours. Objective - Vital Signs Vital signs: Vital Signs Temp 97.8 F 06/13/22 03:03 Pulse 78 06/13/22 03:19 Resp 20 06/13/22 03:03 BP 103/58 06/13/22 03:03 Pulse Ox 100 06/13/22 03:03 FiO2 Intake & Output 06/12/22 06/12/22 06/13/22 06:59 18:59 06:59 Intake Total 718 Output Total 200 400 550 Balance -200 318 -550 Weight 52.5 kg Intake: Oral 718 Output: Urine 200 400 550 Other: Voiding Method Urinal Urinal Urinal - Constitutional General appearance: Present: no acute distress - Respiratory Respiratory: bilateral: diminished - Cardiovascular Rhythm: regular Heart sounds: normal: S1, S2 - Labs CBC & Chem 7: 06/12/22 09:50 06/12/22 09:50 Labs: Abnormal Lab Results - Last 24 Hours (Table) 06/12/22 06/12/22 06/12/22 Range/Units 09:50 09:50 16:53 RBC 4.23 L (4.30-5.90) m/uL Hct 38.6 L (39.0-53.0) % Sodium 135 L (137-145) mmol/L BUN 29 H (9-20) mg/dL Creatinine 1.40 H (0.66-1.25) mg/dL Glucose 167 H (74-99) mg/dL POC Glucose (mg/dL) 199 H (70-110) mg/dL Calcium 8.0 L (8.4-10.2) mg/dL 06/12/22 06/13/22 Range/Units 20:10 06:13 RBC (4.30-5.90) m/uL Hct (39.0-53.0) % Sodium (137-145) mmol/L BUN (9-20) mg/dL Creatinine (0.66-1.25) mg/dL Glucose (74-99) mg/dL POC Glucose (mg/dL) 214 H 183 H (70-110) mg/dL Calcium (8.4-10.2) mg/dL Assessment and Plan Assessment: Assessment Acute coronary event Status post PCI of the LAD as described above Paroxysmal atrial fibrillation Diabetes Hypertension Dyslipidemia COPD Plan Dual antiplatelet therapy High intensity statin Anti-ischemic medication and cardiomyopathy medication Possible discharge home in the next 12-24 hour
[2022-06-13] MEDS: CLOPIDOGREL 75 MG TAB PO SCH (08:34)
[2022-06-13] MEDS: methIMAzole 5 MG TAB PO SCH (08:34)
[2022-06-13] MEDS: methylPREDNISolone SOD SUCCI 125 MG/2 ML VIAL IV SCH ×4 (08:34→23:08)
[2022-06-13] MEDS: ATORVASTATIN 40 MG TAB PO SCH (08:34)
[2022-06-13] MEDS: FAMOTIDINE 20 MG TAB PO SCH (08:34)
[2022-06-13] MEDS: APIXABAN 2.5 MG TABLET PO SCH ×2 (08:34→20:14)
[2022-06-13] MEDS: METOPROLOL TARTRATE 25 MG TAB PO SCH ×2 (08:34→20:14)
[2022-06-13] MEDS: BUDESONIDE 1 MG/2 ML NEBU INHALATION SCH ×3 (08:40→19:27)
[2022-06-13] MEDS: FORMOTEROL FUMARATE 20 MCG/2 ML NEBU INHALATION SCH ×3 (08:40→19:27)
[2022-06-13 09:30] LABS: HCT 34.3 % (39.0-53.0); HGB 11.4 gm/dL (13.0-17.5); MCH 30.9 pg (25.0-35.0); MCHC 33.3 g/dL (31.0-37.0); MCV 92.7 fL (80.0-100.0); Mean Platelet Volume 8.6; Platelet Count 272 k/uL (150-450); RDW 13.1 % (11.5-15.5); WBC 6.3 k/uL (3.8-10.6)
[2022-06-13 09:46] LABS: Calcium 7.5 mg/dL (8.4-10.2); Potassium 4.4 mmol/L (3.5-5.1)
[2022-06-13 11:39] LABS: Glucose,Whole Blood 115 mg/dL (70-110)
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
[2022-06-13 16:26] LABS: Glucose,Whole Blood 224 mg/dL (70-110)
--- NOTE | 2022-06-13 20:17 | P.PN ---
Subjective Progress Note Date: 06/13/22 (delayed charting seen at 0945) Patient is a 77-year-old male with known atrial fibrillation anticoagulated with eliquis, hyperthyroidism, diabetes mellitus type 2 and prior smoking history on home O2 who presented to the hospital due to worsening shortness of breath. Patient was recently admitted from 06/07 through 06/09 where he underwent cardiac catheterization on 06/08 which demonstrated mild to moderate triple- vessel disease that is right-sided dominant. He is on have congestive heart failure with an ejection fraction of 35%. At that time they recommended medical management. He was discharged in the morning of 1227 and 3% in the evening of 06/09 with worsening chest pain. He underwent urgent cardiac catheterization which resulted in successful stenting of the mid LAD. He developed wheezing and was started on treatment for COPD exacerbation. He went into A fib with RVR on the morning of 06/12 and was given IV metoprolol X 1 with good resolution, he was resumed on his oral metoprolol. Patient seen and examined at bedside. Doing better than yesterday, wants to be d ischarged. We did discuss that he has a low EF consistent with HF and severe COPD and that he will likely have prolong difficult breathing and would beneift from structured rehab. General: nontoxic, mild distress, appears at stated age Derm: warm, dry Head: atraumatic, normocephalic, symmetric Eyes: EOMI, no lid lag, anicteric sclera Mouth: no lip lesion, mucus membranes moist Cardiovascular: S1S2 irreg, no murmur, positive posterior tibial pulse bilateral, Lungs: Rhonchi bilateral , no accessory muscle use Abdominal: soft, nontender to palpation, no guarding, no appreciable organomegaly Ext: no gross muscle atrophy, no edema, no contractures Neuro: CN II-XI grossly intact, no focal neuro deficits Psych: Alert, oriented, appropriate affect 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% Paroxysmal atrial fibrillation, RVR resolved - Plavix, aspirin, eliquis - lopressor - cozaar discontinued due to hypotension - cardio recs - repeat echo with stable EF COPD with mild exacerbation Chronic hypoxic respiratory failure on 5 L History of tobacco abuse -Bronchodilators - solumedrol - Pulmonary recs Hyperthyroidism -Continue methimazole DVT prophylaxis: eliquis Discussed with: patient, nursing Anticipated discharge: pending clinical course Anticipated discharge place: [facility] A total of 35 minutes was spent on the care of this complex patient more than 50% of the time was spent in counseling and care coordination. Active Medications Generic Name Dose Route Start Last Admin Trade Name Freq PRN Reason Stop Dose Admin Al Hydroxide/Mg Hydroxide 30 ml 06/09/22 21:14 06/13/22 19:14 Mag Hydrox/Al Hydrox/Simeth 30 Ml Cup PO 30 ml Q4HR PRN Administration Heartburn Albuterol/Ipratropium 3 ml 06/11/22 00:00 06/13/22 19:26 Ipratropium-Albuterol 3 Ml Neb INHALATION Not Given RT-Q4H LELE Albuterol/Ipratropium 3 ml 06/10/22 20:22 Ipratropium-Albuterol 3 Ml Neb INHALATION RT-Q2H PRN Shortness Of Breath Or Wheezing Apixaban 2.5 mg 06/10/22 09:30 06/13/22 20:14 Apixaban 2.5 Mg Tablet PO 2.5 mg BID LELE Administration Protocol Atorvastatin Calcium 40 mg 06/10/22 09:00 06/13/22 08:34 Atorvastatin 40 Mg Tab PO 40 mg DAILY LELE Administration Atropine Sulfate 0.5 mg 06/09/22 21:14 Atropine Sulfate 0.1 Mg/Ml 10ml Syringe IV ONCE PRN Symptomatic Bradycardia Budesonide 1 mg 06/10/22 20:00 06/13/22 19:27 Budesonide 1 Mg/2 Ml Nebu INHALATION Not Given RT-BID LELE Clopidogrel Bisulfate 75 mg 06/10/22 09:00 06/13/22 08:34 Clopidogrel 75 Mg Tab PO 75 mg DAILY LELE Administration Protocol Famotidine 20 mg 06/11/22 09:00 06/13/22 08:34 Famotidine 20 Mg Tab PO 20 mg DAILY LELE Administration Formoterol Fumarate 20 mcg 06/11/22 08:00 06/13/22 19:27 Formoterol Fumarate 20 Mcg/2 Ml Nebu INHALATION Not Given RT-BID LELE Methimazole 10 mg 06/11/22 09:00 06/13/22 08:34 Methimazole 5 Mg Tab PO 10 mg DAILY LELE Administration Methylprednisolone Sodium Succinate 60 mg 06/13/22 12:00 06/13/22 17:09 Methylprednisolone Sod Succi 125 Mg/2 Ml Vial IV 60 mg Q6HR LELE Administration Metoprolol Tartrate 25 mg 06/10/22 09:00 06/13/22 20:14 Metoprolol Tartrate 25 Mg Tab PO 25 mg BID LELE Administration Nitroglycerin 0.4 mg 06/09/22 21:14 Nitroglycerin Sl Tabs 0.4 Mg Tab SUBLINGUAL Q5M PRN Chest Pain Objective - Vital Signs Vital signs: Vital Signs Temp 98.1 F 06/13/22 19:25 Pulse 73 06/13/22 19:25 Resp 22 06/13/22 19:25 BP 100/51 06/13/22 19:25 Pulse Ox 97 06/13/22 19:25 FiO2 Intake & Output 06/13/22 06/13/22 06/14/22 06:59 18:59 06:59 Intake Total 240 Output Total 550 1200 Balance -550 -960 Weight 52.5 kg Intake: Oral 240 Output: Urine 550 1200 Other: Voiding Method Urinal Urinal # Bowel Movements 1 - Labs CBC & Chem 7: 06/13/22 08:34 06/13/22 08:34 Labs: Abnormal Lab Results - Last 24 Hours (Table) 06/13/22 06/13/22 06/13/22 Range/Units 06:13 08:34 08:34 RBC 3.70 L (4.30-5.90) m/uL Hgb 11.4 L (13.0-17.5) gm/dL Hct 34.3 L (39.0-53.0) % Sodium 133 L (137-145) mmol/L BUN 29 H (9-20) mg/dL Creatinine 1.28 H (0.66-1.25) mg/dL Glucose 203 H (74-99) mg/dL POC Glucose (mg/dL) 183 H (70-110) mg/dL Calcium 7.5 L (8.4-10.2) mg/dL 06/13/22 06/13/22 Range/Units 11:38 16:22 RBC (4.30-5.90) m/uL Hgb (13.0-17.5) gm/dL Hct (39.0-53.0) % Sodium (137-145) mmol/L BUN (9-20) mg/dL Creatinine (0.66-1.25) mg/dL Glucose (74-99) mg/dL POC Glucose (mg/dL) 115 H 224 H (70-110) mg/dL Calcium (8.4-10.2) mg/dL
[2022-06-13 20:20] LABS: Glucose,Whole Blood 239 mg/dL (70-110)
[2022-06-14] MEDS: IPRATROPIUM-ALBUTEROL 3 ML NEB INHALATION SCH ×6 (00:23→19:06)
[2022-06-14] MEDS: methylPREDNISolone SOD SUCCI 125 MG/2 ML VIAL IV SCH ×2 (06:04→12:39)
[2022-06-14 06:09] LABS: Glucose,Whole Blood 168 mg/dL (70-110)
[2022-06-14] MEDS: FORMOTEROL FUMARATE 20 MCG/2 ML NEBU INHALATION SCH ×2 (08:19→19:06)
[2022-06-14] MEDS: BUDESONIDE 1 MG/2 ML NEBU INHALATION SCH ×2 (08:19→19:06)
[2022-06-14] MEDS: CLOPIDOGREL 75 MG TAB PO SCH (09:07)
[2022-06-14] MEDS: APIXABAN 2.5 MG TABLET PO SCH ×2 (09:07→20:34)
[2022-06-14] MEDS: ATORVASTATIN 40 MG TAB PO SCH (09:07)
[2022-06-14] MEDS: FAMOTIDINE 20 MG TAB PO SCH (09:08)
[2022-06-14] MEDS: methIMAzole 5 MG TAB PO SCH (09:13)
[2022-06-14] MEDS: METOPROLOL TARTRATE 25 MG TAB PO SCH ×2 (09:13→20:34)
--- NOTE | 2022-06-14 09:21 | P.PN ---
Subjective Progress Note Date: 06/14/22 Principal diagnosis: CAD with prior stenting of the LAD The patient is a 77-year-old gentleman who was admitted to the hospital was acute coronary syndrome and he underwent stenting of the LAD. Beside that he does have history of paroxysmal atrial fibrillation and cardiomyopathy and hypertension and dyslipidemia and COPD. June [id number] He was seen this morning. He remains hemodynamically stable. He remains asymptomatic beside underlying shortness of breath which is chronic. No dizziness or lightheadedness and no presyncope or syncope. He has been maintaining normal sinus mechanism. Currently he is on antiplatelet as well as anticoagulation. From the cardiovascular standpoint of view, the patient potentially can be discharged home in the next 12-24 hours. 06/14/2022 The patient was seen and evaluated this morning. He remains hemodynamically stable was marginally low blood pressure and heart rate. He is asymptomatic with that. He reports no pain in the chest. He continues to have shortness of breath with exertion which has not changed compared to before which is elevated to COPD. No dizziness or lightheadedness and no feeling of presyncope or syncope. He is in process of being discharged into a rehab facility. Objective - Vital Signs Vital signs: Vital Signs Temp 98.2 F 06/14/22 04:00 Pulse 58 L 06/14/22 08:40 Resp 16 06/14/22 08:00 BP 93/56 06/14/22 08:00 Pulse Ox 100 06/14/22 08:19 FiO2 Intake & Output 06/13/22 06/14/22 06/14/22 18:59 06:59 18:59 Intake Total 240 240 Output Total 1200 525 650 Balance -960 -525 -410 Weight 50.5 kg Intake: Oral 240 240 Output: Urine 1200 525 650 Other: Voiding Method Urinal Urinal # Voids 0 # Bowel Movements 1 - Constitutional General appearance: Present: no acute distress - Respiratory Respiratory: bilateral: diminished - Cardiovascular Rhythm: regular - Labs CBC & Chem 7: 06/13/22 08:34 06/13/22 08:34 Labs: Abnormal Lab Results - Last 24 Hours (Table) 06/13/22 06/13/22 06/13/22 Range/Units 08:34 08:34 11:38 RBC 3.70 L (4.30-5.90) m/uL Hgb 11.4 L (13.0-17.5) gm/dL Hct 34.3 L (39.0-53.0) % Sodium 133 L (137-145) mmol/L BUN 29 H (9-20) mg/dL Creatinine 1.28 H (0.66-1.25) mg/dL Glucose 203 H (74-99) mg/dL POC Glucose (mg/dL) 115 H (70-110) mg/dL Calcium 7.5 L (8.4-10.2) mg/dL 06/13/22 06/13/22 06/14/22 Range/Units 16:22 20:19 06:08 RBC (4.30-5.90) m/uL Hgb (13.0-17.5) gm/dL Hct (39.0-53.0) % Sodium (137-145) mmol/L BUN (9-20) mg/dL Creatinine (0.66-1.25) mg/dL Glucose (74-99) mg/dL POC Glucose (mg/dL) 224 H 239 H 168 H (70-110) mg/dL Calcium (8.4-10.2) mg/dL Assessment and Plan Assessment: Assessment Acute coronary event Status post PCI of the LAD as described above Paroxysmal atrial fibrillation Diabetes Hypertension Dyslipidemia COPD Plan Dual antiplatelet therapy High intensity statin Anti-ischemic medication and cardiomyopathy medication Possible discharge home in the next 12-24 hour
[2022-06-14 10:20] LABS: HCT 38.2 % (39.0-53.0); HGB 12.5 gm/dL (13.0-17.5); MCHC 32.7 g/dL (31.0-37.0); MCV 94.6 fL (80.0-100.0); Mean Platelet Volume 8.8; Platelet Count 274 k/uL (150-450); RBC 4.03 m/uL (4.30-5.90); RDW 13.6 % (11.5-15.5); WBC 8.1 k/uL (3.8-10.6)
[2022-06-14 10:35] LABS: Potassium 4.8 mmol/L (3.5-5.1)
[2022-06-14 12:00] LABS: Glucose,Whole Blood 234 mg/dL (70-110)
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
[2022-06-14] MEDS ORDERED: DEXTROSE 50% SYRINGE 50 ML IVP PRN ×2 (14:08)
[2022-06-14] MEDS ORDERED: predniSONE 20 MG TAB PO STA (14:24)
--- NOTE | 2022-06-14 14:27 | P.PN ---
Subjective Progress Note Date: 06/14/22 (delayed charting seen at 1045) Patient is a 77-year-old male with known atrial fibrillation anticoagulated with eliquis, hyperthyroidism, diabetes mellitus type 2 and prior smoking history on home O2 who presented to the hospital due to worsening shortness of breath. Patient was recently admitted from 06/07 through 06/09 where he underwent cardiac catheterization on 06/08 which demonstrated mild to moderate triple- vessel disease that is right-sided dominant. He is on have congestive heart failure with an ejection fraction of 35%. At that time they recommended medical management. He was discharged in the morning of 1227 and 3% in the evening of 06/09 with worsening chest pain. He underwent urgent cardiac catheterization which resulted in successful stenting of the mid LAD. He developed wheezing and was started on treatment for COPD exacerbation. He went into A fib with RVR on the morning of 06/12 and was given IV metoprolol X 1 with good resolution, he was resumed on his oral metoprolol. Patient seen and examined at bedside. Breathing is better than yesterday. No gabriella st pain, no nausea, no vomiting. General: nontoxic, no distress, appears at stated age Derm: warm, dry Head: atraumatic, normocephalic, symmetric Eyes: EOMI, no lid lag, anicteric sclera Mouth: no lip lesion, mucus membranes moist Cardiovascular: S1S2 irreg, no murmur, positive posterior tibial pulse bilateral, Lungs: Course bs bilateral, no accessory muscle use Abdominal: soft, nontender to palpation, no guarding, no appreciable organomegaly Ext: no gross muscle atrophy, no edema, no contractures Neuro: CN II-XI grossly intact, no focal neuro deficits Psych: Alert, oriented, appropriate affect 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% Paroxysmal atrial fibrillation, RVR resolved - Plavix, aspirin, eliquis - lopressor - cozaar discontinued due to hypotension - cardio recs - repeat echo with stable EF COPD with mild exacerbation Chronic hypoxic respiratory failure on 5 L History of tobacco abuse - Bronchodilators - solumedrol to prednisone - Pulmonary recs: stable for discharge Hyperglycemia - due to steroids - SSI Hyperthyroidism -Continue methimazole DVT prophylaxis: eliquis Discussed with: patient, nursing Anticipated discharge: in AM Anticipated discharge place: [facility] A total of 35 minutes was spent on the care of this complex patient more than 50% of the time was spent in counseling and care coordination. Active Medications Generic Name Dose Route Start Last Admin Trade Name Freq PRN Reason Stop Dose Admin Al Hydroxide/Mg Hydroxide 30 ml 06/09/22 21:14 06/13/22 19:14 Mag Hydrox/Al Hydrox/Simeth 30 Ml Cup PO 30 ml Q4HR PRN Administration Heartburn Albuterol/Ipratropium 3 ml 06/11/22 00:00 06/14/22 11:18 Ipratropium-Albuterol 3 Ml Neb INHALATION 3 ml RT-Q4H LELE Administration Albuterol/Ipratropium 3 ml 06/10/22 20:22 06/13/22 22:12 Ipratropium-Albuterol 3 Ml Neb INHALATION 3 ml RT-Q2H PRN Administration Shortness Of Breath Or Wheezing Apixaban 2.5 mg 06/10/22 09:30 06/14/22 09:07 Apixaban 2.5 Mg Tablet PO 2.5 mg BID LELE Administration Protocol Atorvastatin Calcium 40 mg 06/10/22 09:00 06/14/22 09:07 Atorvastatin 40 Mg Tab PO 40 mg DAILY LELE Administration Atropine Sulfate 0.5 mg 06/09/22 21:14 Atropine Sulfate 0.1 Mg/Ml 10ml Syringe IV ONCE PRN Symptomatic Bradycardia Budesonide 1 mg 06/10/22 20:00 06/14/22 08:19 Budesonide 1 Mg/2 Ml Nebu INHALATION 1 mg RT-BID LELE Administration Clopidogrel Bisulfate 75 mg 06/10/22 09:00 06/14/22 09:07 Clopidogrel 75 Mg Tab PO 75 mg DAILY LELE Administration Protocol Dextrose/Water 25 ml 06/14/22 14:08 Dextrose 50% Syringe 50 Ml IVP PER PROTOCOL PRN Hypoglycemia Protocol Dextrose/Water 50 ml 06/14/22 14:08 Dextrose 50% Syringe 50 Ml IVP PER PROTOCOL PRN Hypoglycemia Protocol Famotidine 20 mg 06/11/22 09:00 06/14/22 09:08 Famotidine 20 Mg Tab PO 20 mg DAILY LELE Administration Formoterol Fumarate 20 mcg 06/11/22 08:00 06/14/22 08:19 Formoterol Fumarate 20 Mcg/2 Ml Nebu INHALATION 20 mcg RT-BID LELE Administration Insulin Aspart 0 unit 06/14/22 17:30 Insulin Aspart (Novolog) 100 Unit/Ml Vial SQ ACHS [facility] Protocol Methimazole 10 mg 06/11/22 09:00 06/14/22 09:13 Methimazole 5 Mg Tab PO 10 mg DAILY LELE Administration Methylprednisolone Sodium Succinate 60 mg 06/13/22 12:00 06/14/22 12:39 Methylprednisolone Sod Succi 125 Mg/2 Ml Vial IV 60 mg Q6HR LELE Administration Metoprolol Tartrate 25 mg 06/10/22 09:00 06/14/22 09:13 Metoprolol Tartrate 25 Mg Tab PO 25 mg BID LELE Administration Nitroglycerin 0.4 mg 06/09/22 21:14 Nitroglycerin Sl Tabs 0.4 Mg Tab SUBLINGUAL Q5M PRN Chest Pain Objective - Vital Signs Vital signs: Vital Signs Temp 98.2 F 06/14/22 04:00 Pulse 74 06/14/22 12:00 Resp 16 06/14/22 12:00 BP 103/52 06/14/22 12:00 Pulse Ox 100 06/14/22 12:00 FiO2 Intake & Output 06/13/22 06/14/22 06/14/22 18:59 06:59 18:59 Intake Total 240 480 Output Total 1200 525 950 Balance -960 -525 -470 Weight 50.5 kg Intake: Oral 240 480 Output: Urine 1200 525 950 Other: Voiding Method Urinal Urinal Urinal # Voids 0 # Bowel Movements 1 1 - Labs CBC & Chem 7: 06/14/22 09:24 06/14/22 09:24 Labs: Abnormal Lab Results - Last 24 Hours (Table) 06/13/22 06/13/22 06/14/22 Range/Units 16:22 20:19 06:08 RBC (4.30-5.90) m/uL Hgb (13.0-17.5) gm/dL Hct (39.0-53.0) % Sodium (137-145) mmol/L Carbon Dioxide (22-30) mmol/L BUN (9-20) mg/dL Creatinine (0.66-1.25) mg/dL Glucose (74-99) mg/dL POC Glucose (mg/dL) 224 H 239 H 168 H (70-110) mg/dL Calcium (8.4-10.2) mg/dL 06/14/22 06/14/22 06/14/22 Range/Units 09:24 09:24 11:52 RBC 4.03 L (4.30-5.90) m/uL Hgb 12.5 L (13.0-17.5) gm/dL Hct 38.2 L (39.0-53.0) % Sodium 133 L (137-145) mmol/L Carbon Dioxide 21 L (22-30) mmol/L BUN 28 H (9-20) mg/dL Creatinine 1.32 H (0.66-1.25) mg/dL Glucose 174 H (74-99) mg/dL POC Glucose (mg/dL) 234 H (70-110) mg/dL Calcium 8.0 L (8.4-10.2) mg/dL
[2022-06-14 16:35] LABS: Glucose,Whole Blood 227 mg/dL (70-110)
[2022-06-14] MEDS: INSULIN ASPART (NovoLOG) 100 UNIT/ML VIAL SQ SCH ×2 (16:57→20:12)
[2022-06-14 20:12] LABS: Glucose,Whole Blood 138 mg/dL (70-110)
[2022-06-15] MEDS: IPRATROPIUM-ALBUTEROL 3 ML NEB INHALATION SCH ×4 (01:34→11:17)
[2022-06-15 06:05] LABS: Glucose,Whole Blood 148 mg/dL (70-110)
[2022-06-15] MEDS: INSULIN ASPART (NovoLOG) 100 UNIT/ML VIAL SQ SCH ×2 (06:08→12:05)
[2022-06-15 06:21] VITALS: RESP 16
[2022-06-15] MEDS: FORMOTEROL FUMARATE 20 MCG/2 ML NEBU INHALATION SCH (07:18)
[2022-06-15] MEDS: BUDESONIDE 1 MG/2 ML NEBU INHALATION SCH (07:18)
--- NOTE | 2022-06-15 07:39 | P.PN ---
Subjective Progress Note Date: 06/15/22 Principal diagnosis: CAD with prior stenting of the LAD The patient is a 77-year-old gentleman who was admitted to the hospital was acute coronary syndrome and he underwent stenting of the LAD. Beside that he does have history of paroxysmal atrial fibrillation and cardiomyopathy and hypertension and dyslipidemia and COPD. June 132021 He was seen this morning. He remains hemodynamically stable. He remains asymptomatic beside underlying shortness of breath which is chronic. No dizziness or lightheadedness and no presyncope or syncope. He has been maintaining normal sinus mechanism. Currently he is on antiplatelet as well as anticoagulation. From the cardiovascular standpoint of view, the patient potentially can be discharged home in the next 12-24 hours. 06/14/2022 The patient was seen and evaluated this morning. He remains hemodynamically stable was marginally low blood pressure and heart rate. He is asymptomatic with that. He reports no pain in the chest. He continues to have shortness of breath with exertion which has not changed compared to before which is elevated to COPD. No dizziness or lightheadedness and no feeling of presyncope or syncope. He is in process of being discharged into a rehab facility. 06/16/2022 The patient was seen this morning. He is stable from a cardiovascular standpoint of view. He reports no pain in the chest. Continues to have shortness of breath with exertion which has not changed compared to before. From the cardiac standpoint of view, the patient can be discharged home Objective - Vital Signs Vital signs: Vital Signs Temp 97.3 F L 06/15/22 04:00 Pulse 64 06/15/22 07:31 Resp 16 06/15/22 04:00 BP 109/57 06/15/22 04:00 Pulse Ox 99 06/15/22 04:00 FiO2 Intake & Output 06/14/22 06/15/22 06/15/22 18:59 06:59 18:59 Intake Total 660 Output Total 1250 1000 Balance -590 -1000 Weight 50.5 kg Intake: Oral 660 Output: Urine 1250 1000 Other: Voiding Method Urinal Urinal # Voids 0 # Bowel Movements 1 1 - Constitutional General appearance: Present: no acute distress - Respiratory Respiratory: bilateral: diminished - Cardiovascular Rhythm: regular - Labs CBC & Chem 7: 06/14/22 09:24 06/14/22 09:24 Labs: Abnormal Lab Results - Last 24 Hours (Table) 06/14/22 06/14/22 06/14/22 Range/Units 09:24 09:24 09:24 RBC 4.03 L (4.30-5.90) m/uL Hgb 12.5 L (13.0-17.5) gm/dL Hct 38.2 L (39.0-53.0) % Sodium 133 L (137-145) mmol/L Carbon Dioxide 21 L (22-30) mmol/L BUN 28 H (9-20) mg/dL Creatinine 1.32 H (0.66-1.25) mg/dL Glucose 174 H (74-99) mg/dL POC Glucose (mg/dL) (70-110) mg/dL Hemoglobin A1c 6.1 H (0.0-6.0) % Calcium 8.0 L (8.4-10.2) mg/dL 06/14/22 06/14/22 06/14/22 Range/Units 11:52 16:31 20:10 RBC (4.30-5.90) m/uL Hgb (13.0-17.5) gm/dL Hct (39.0-53.0) % Sodium (137-145) mmol/L Carbon Dioxide (22-30) mmol/L BUN (9-20) mg/dL Creatinine (0.66-1.25) mg/dL Glucose (74-99) mg/dL POC Glucose (mg/dL) 234 H 227 H 138 H (70-110) mg/dL Hemoglobin A1c (0.0-6.0) % Calcium (8.4-10.2) mg/dL 06/15/22 Range/Units 06:03 RBC (4.30-5.90) m/uL Hgb (13.0-17.5) gm/dL Hct (39.0-53.0) % Sodium (137-145) mmol/L Carbon Dioxide (22-30) mmol/L BUN (9-20) mg/dL Creatinine (0.66-1.25) mg/dL Glucose (74-99) mg/dL POC Glucose (mg/dL) 148 H (70-110) mg/dL Hemoglobin A1c (0.0-6.0) % Calcium (8.4-10.2) mg/dL Assessment and Plan Assessment: Assessment Acute coronary event Status post PCI of the LAD as described above Paroxysmal atrial fibrillation Diabetes Hypertension Dyslipidemia COPD Plan Dual antiplatelet therapy High intensity statin Anti-ischemic medication and cardiomyopathy medication The patient can be discharged home. We'll follow-up with the patient on when necessary
[2022-06-15 08:18] LABS: Basophils % (A) 0 %; Eosinophils % (A) 0 %; HCT 37.2 % (39.0-53.0); HGB 12.5 gm/dL (13.0-17.5); Lymphocytes # (A) 0.7 k/uL (1.0-4.8); Lymphocytes % (A) 9 %; MCH 31.1 pg (25.0-35.0); MCHC 33.7 g/dL (31.0-37.0); MCV 92.3 fL (80.0-100.0); Mean Platelet Volume 8.3; Monocytes # (A) 0.5 k/uL (0-1.0); Monocytes % (A) 7 %; Neutrophils % (A) 83 %; Platelet Count 279 k/uL (150-450); RBC 4.03 m/uL (4.30-5.90); RDW 13.1 % (11.5-15.5); WBC 7.2 k/uL (3.8-10.6)
[2022-06-15 08:24] LABS: Albumin 3.1 g/dL (3.5-5.0); Calcium 7.9 mg/dL (8.4-10.2); Magnesium 2.1 mg/dL (1.6-2.3); Potassium 4.9 mmol/L (3.5-5.1); Total Bilirubin 0.4 mg/dL (0.2-1.3); Total Protein 5.2 g/dL (6.3-8.2)
[2022-06-15] MEDS: CLOPIDOGREL 75 MG TAB PO SCH (08:53)
[2022-06-15] MEDS: METOPROLOL TARTRATE 25 MG TAB PO SCH (08:53)
[2022-06-15] MEDS: ATORVASTATIN 40 MG TAB PO SCH (08:53)
[2022-06-15] MEDS: methIMAzole 5 MG TAB PO SCH (08:53)
[2022-06-15] MEDS: FAMOTIDINE 20 MG TAB PO SCH (08:53)
[2022-06-15] MEDS: APIXABAN 2.5 MG TABLET PO SCH (08:54)
[2022-06-15 08:59] VITALS: TEMP 96.4
[2022-06-15] MEDS ORDERED: predniSONE 20 MG TAB PO SCH (09:00)
[2022-06-15 12:01] LABS: Glucose,Whole Blood 153 mg/dL (70-110)
[2022-06-15 12:24] VITALS: BP 109/57; PULSE 65
--- NOTE | 2022-06-15 14:15 | P.DS ---
Providers Date of admission: 06/09/22 20:17 Expected date of discharge: 06/15/22 Attending physician: Ted Musa Consults: 06/09/22 21:14 Consult Physician Routine Consulting Provider: [facility] Consult Reason/Comments: Post Interventional patient Do you want consulting provider notified?: Already Contacted 06/10/22 09:36 Consult Physician Routine Consulting Provider: Ted Musa Consult Reason/Comments: medical management Do you want consulting provider notified?: Yes 06/11/22 11:21 Consult Physician Routine Consulting Provider: Oswaldo Forrest Consult Reason/Comments: copd ex. Do you want consulting provider notified?: Yes Primary care physician: [facility] Hospital Course: Hospital course: Patient is a 77-year-old male, follows with Oswaldo Duncan NP. with known atrial fibrillation anticoagulated with eliquis, hyperthyroidism, diabetes mellitus type 2 and prior smoking history on home O2 who presented to the hospital due to worsening shortness of breath. Patient was recently admitted from 06/07 through 06/09 where he underwent cardiac catheterization on 06/08 which demonstrated mild to moderate triple-vessel disease that is right-sided dominant. He is on have congestive heart failure with an ejection fraction of 35%. At that time they recommended medical management. He was discharged in the morning of 1227 a nd 3% in the evening of 06/09 with worsening chest pain. He underwent urgent cardiac catheterization which resulted in successful stenting of the mid LAD. He developed wheezing and was started on treatment for COPD exacerbation. He went into A fib with RVR on the morning of 06/12 and was given IV metoprolol X 1 with good resolution, he was resumed on his oral metoprolol. 06/15/2022: I assumed the care of the patient today. No chest pain. No breathing trouble. Eating fair. Some shortness of breath. Will be discharged with tapering prednisone. Have CBC BMP labs repeated in 3 days. Discussed with patient and the nurse. We'll go to rehab today. 2-D echocardiogram: EF 30-35% wall motion abnormality of the LV. Discussion and discharge planning more than 35 minutes On examination: VITAL SIGNS: [96.4, 22, 1 27 x 62, 100% on 3 L] GENERAL APPEARANCE: Sitting at the edge of the bed, eating. RESPIRATORY: Respiratory effort increased, decreased breath sound CARDIOVASCULAR: First and second sounds normal. No edema. ABDOMEN: Soft. Liver and spleen not palpable. No tenderness. No mass palpable. PSYCHIATRY: Alert and oriented x3. Mood and affect normal. 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% Paroxysmal atrial fibrillation, RVR resolved - Plavix, aspirin, eliquis - lopressor - cozaar discontinued due to hypotension - cardio recs - repeat echo with stable EF COPD with mild exacerbation Chronic hypoxic respiratory failure on 5 L History of tobacco abuse - Bronchodilators - Prednisone taper Hyperglycemia - due to steroids - SSI Hyperthyroidism -Continue methimazole Disposition: Rehab at [facility] Plan - Discharge Summary Discharge Rx Participant: No New Discharge Prescriptions: New Metoprolol Tartrate [Lopressor] 25 mg PO BID tab Clopidogrel [Plavix] 75 mg PO DAILY tab Apixaban [Eliquis] 2.5 mg PO BID tab Famotidine [Pepcid] 20 mg PO DAILY tab predniSONE 10 mg PO DAILY #30 tab Continue Ipratropium-Albuterol Nebulize [Duoneb 0.5 mg-3 mg/3 ml Soln] 3 ml INHALATION RT-QID Loperamide [Imodium] 2 mg PO Q4H PRN PRN Reason: Diarrhea Nitroglycerin Sl Tabs [Nitrostat] 0.4 mg SUBLINGUAL Q5M PRN #30 tab PRN Reason: Chest Pain methIMAzole 10 mg PO DAILY Atorvastatin [Lipitor] 40 mg PO DAILY #30 tab Discontinued Apixaban [Eliquis] 5 mg PO BID Metoprolol Succinate (ER) [Toprol XL] 25 mg PO BID #30 tab Losartan [Cozaar] 25 mg PO HS #30 tab Discharge Medication List Ipratropium-Albuterol Nebulize [Duoneb 0.5 mg-3 mg/3 ml Soln] 3 ml INHALATION RT-QID 04/16/22 [History] methIMAzole 10 mg PO DAILY 04/16/22 [History] Loperamide [Imodium] 2 mg PO Q4H PRN 06/07/22 [History] Atorvastatin [Lipitor] 40 mg PO DAILY #30 tab 06/09/22 [Rx] Nitroglycerin Sl Tabs [Nitrostat] 0.4 mg SUBLINGUAL Q5M PRN #30 tab 06/09/22 [Rx] Apixaban [Eliquis] 2.5 mg PO BID tab 06/15/22 [Rx] Clopidogrel [Plavix] 75 mg PO DAILY tab 06/15/22 [Rx] Famotidine [Pepcid] 20 mg PO DAILY tab 06/15/22 [Rx] Metoprolol Tartrate [Lopressor] 25 mg PO BID tab 06/15/22 [Rx] predniSONE 10 mg PO DAILY #30 tab 06/15/22 [Rx] Follow up Appointment(s)/Referral(s): Derek Shah MD [STAFF PHYSICIAN] - 1 Week Jagdish Brunson MD [Primary Care Provider] - 1 Week
== END 2022-06-15 15:13 | DRG 247 ==
LOC: 2SICU 20:17 → OBSVTOIN 20:17 → 2SICU 21:12 → 3SCARD 06-11 01:14
PROVIDERS: ADMIT Hospitalist; ATTEND Hospitalist
PROC: 4A023N7 Measurement of Cardiac Sampling and Pressure, Left Heart, Percutaneous Approach (ICD-10-PCS; principal; 2022-06-09 19:43)
PROC: 027034Z Dilation of Coronary Artery, One Artery with Drug-eluting Intraluminal Device, Percutaneous Approach (ICD-10-PCS; principal; 2022-06-09 19:43)
PROC: B2111ZZ Fluoroscopy of Multiple Coronary Arteries using Low Osmolar Contrast (ICD-10-PCS; principal; 2022-06-09 19:43)
DX: I21.09 ST elevation (STEMI) myocardial infarction involving other coronary artery of anterior wall (principal); I42.8 Other cardiomyopathies; I13.0 Hypertensive heart and chronic kidney disease with heart failure and stage 1 through stage 4 chronic kidney disease, or unspecified chronic kidney disease; J44.1 Chronic obstructive pulmonary disease with (acute) exacerbation; J96.11 Chronic respiratory failure with hypoxia; N17.9 Acute kidney failure, unspecified; Z87.891 Personal history of nicotine dependence; E05.90 Thyrotoxicosis, unspecified without thyrotoxic crisis or storm; E11.22 Type 2 diabetes mellitus with diabetic chronic kidney disease; E11.649 Type 2 diabetes mellitus with hypoglycemia without coma; E11.65 Type 2 diabetes mellitus with hyperglycemia; T38.0X5A Adverse effect of glucocorticoids and synthetic analogues, initial encounter; E78.5 Hyperlipidemia, unspecified; E86.0 Dehydration; H91.90 Unspecified hearing loss, unspecified ear; I25.5 Ischemic cardiomyopathy; I48.0 Paroxysmal atrial fibrillation; I50.9 Heart failure, unspecified; I25.10 Atherosclerotic heart disease of native coronary artery without angina pectoris; Z99.81 Dependence on supplemental oxygen; N18.30 Chronic kidney disease, stage 3 unspecified; Z90.5 Acquired absence of kidney; Z79.01 Long term (current) use of anticoagulants; Z79.4 Long term (current) use of insulin; Z79.899 Other long term (current) drug therapy; Z85.528 Personal history of other malignant neoplasm of kidney; Z20.822 Contact with and (suspected) exposure to COVID-19; Z28.311 Partially vaccinated for COVID-19; Z28.21 Immunization not carried out because of patient refusal
CPT/HCPCS: 71045; 80048; 80053; 83036; 83735; 84484; 85025; 85027; 93306; 93458; 93799; 94640; 94760

== ENCOUNTER → 2023-07-16 | Outpatient (CLI) | payer MEDICARE, OTHER ==
[2023-07-16 21:02] LABS: Basophils # (A) 0.04 X 10*3/uL (0.00-0.10); Basophils % (A) 0.7 %; Eosinophils # (A) 0.05 X 10*3/uL (0.04-0.35); Eosinophils % (A) 0.9 %; HCT 43.7 % (39.6-50.0); HGB 13.3 g/dL (13.0-17.0); Lymphocytes # (A) 1.05 X 10*3/uL (0.90-5.00); Lymphocytes % (A) 18.8 %; MCH 29.7 pg (27.0-32.0); MCHC 30.4 g/dL (32.0-37.0); MCV 97.5 FL (80.0-97.0); Monocytes # (A) 0.55 X 10*3/uL (0.20-1.00); Monocytes % (A) 9.8 %; NRBC Per 100 WBC 0 X 10*3/uL (0.00-0.01); Neutrophils # (A) 3.87 X 10*3/uL (1.80-7.70); Neutrophils % (A) 69.3 %; Platelet Count 317 X 10*3/uL (140-440); RBC 4.48 X 10*6/uL (4.40-5.60); RDW 13.3 % (11.5-14.5); WBC 5.59 X 10*3/uL (4.50-10.00)
== END | disposition home or self-care (01) ==
LOC: LABPAT 11:45
PROVIDERS: ATTEND Surgery
DX: Z01.812 Encounter for preprocedural laboratory examination (principal); K40.90 Unilateral inguinal hernia, without obstruction or gangrene, not specified as recurrent; R94.31 Abnormal electrocardiogram [ECG] [EKG]
CPT/HCPCS: 36415; 85025; 86850; 86900; 86901; 93005

== ENCOUNTER 2023-12-04 11:25 | Inpatient (IN) | payer MEDICARE, OTHER ==
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
[2023-12-04] MEDS: methylPREDNISolone SOD SUCCI 125 MG/2 ML VIAL IV STA (11:53)
[2023-12-04] MEDS: IPRATROPIUM-ALBUTEROL 3 ML NEB INHALATION STA (12:01)
[2023-12-04 12:13] LABS: Basophils % (A) 0 %; Eosinophils # (A) 0.1 k/uL (0-0.7); Eosinophils % (A) 2 %; HGB 11.4 gm/dL (13.0-17.5); Lymphocytes # (A) 0.7 k/uL (1.0-4.8); Lymphocytes % (A) 8 %; MCH 31.2 pg (25.0-35.0); MCHC 31.6 g/dL (31.0-37.0); MCV 98.9 fL (80.0-100.0); Mean Platelet Volume 8.2; Monocytes # (A) 0.4 k/uL (0-1.0); Monocytes % (A) 6 %; Neutrophils # (A) 6.6 k/uL (1.3-7.7); Neutrophils % (A) 84 %; Platelet Count 148 k/uL (150-450); RBC 3.64 m/uL (4.30-5.90); RDW 13.1 % (11.5-15.5); WBC 7.8 k/uL (3.8-10.6)
[2023-12-04 12:15] LABS: ALT 24 U/L (4-49); AST 20 U/L (17-59); African American GFR (CKD) 65 (>60 ml/min/1.73 sqM); Albumin 3.2 g/dL (3.5-5.0); Alkaline Phosphatase 65 U/L (38-126); Anion Gap 6 mmol/L; Blood Urea Nitrogen 33 mg/dL (9-20); Carbon Dioxide 25 mmol/L (22-30); Chloride 107 mmol/L (98-107); Glucose 96 mg/dL (74-99); Magnesium 2.2 mg/dL (1.6-2.3); Non-African American GFR(CKD) 56 (>60 ml/min/1.73 sqM); Potassium 4.8 mmol/L (3.5-5.1); Sodium 138 mmol/L (137-145); Total Bilirubin 0.7 mg/dL (0.2-1.3); Total Protein 5.1 g/dL (6.3-8.2)
--- NOTE | 2023-12-04 12:39 | XR ---
EXAMINATION TYPE: XR chest 2V DATE OF EXAM: 12/04/2023 COMPARISON: 06/10/2022 INDICATION: Difficulty breathing short of breath TECHNIQUE: Frontal and lateral views of the chest are obtained. FINDINGS: The heart size is normal. The pulmonary vasculature is normal. Some increased linear markings are in the right apex. Scarring could be considered. This May be condon ing. Underlying neoplasm is not excluded. Follow-up is recommended.. IMPRESSION: 1. Increasing linear markings right apex extending towards the right hilum. Underlying neoplasm is wi thin the differential. Follow-up is recommended.
[2023-12-04] MEDS ORDERED: ACETAMINOPHEN TAB 325 MG TAB PO PRN (12:47)
[2023-12-04] MEDS ORDERED: NALOXONE 0.4 MG/ML 1 ML VIAL IVP PRN (12:47)
[2023-12-04] MEDS: AZITHROMYCIN 500 MG in SODIUM CHLORIDE 0.9% 250 ML IVPB SCH (13:01)
[2023-12-04] MEDS: IPRATROPIUM-ALBUTEROL 3 ML NEB INHALATION SCH (15:02)
[2023-12-04] MEDS: methylPREDNISolone SOD SUCCI 125 MG/2 ML VIAL IV SCH (18:21)
[2023-12-04] MEDS: APIXABAN 5 MG TAB PO SCH (20:14)
[2023-12-04] MEDS: SYMBICORT 160-4.5 MCG INHALER INHALATION SCH (20:19)
[2023-12-05] MEDS: IPRATROPIUM-ALBUTEROL 3 ML NEB INHALATION PRN (00:31)
[2023-12-05] MEDS: TAMSULOSIN 0.4 MG CAP.ER.24H PO SCH (08:22)
[2023-12-05] MEDS: methIMAzole 5 MG TAB PO SCH (08:48)
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
[2023-12-05] MEDS ORDERED: LACTULOSE 20 GM/30 ML CUP PO PRN (11:32)
[2023-12-05] MEDS ORDERED: ALPRAZolam 0.25 MG TAB PO PRN (11:32)
[2023-12-05] MEDS ORDERED: TEMAZEPAM 15 MG CAP PO PRN (11:32)
[2023-12-05] MEDS ORDERED: CALCIUM CARBONATE 500 MG CHEWABLE PO PRN (11:32)
[2023-12-05] MEDS ORDERED: ONDANSETRON 4 MG/2 ML VIAL IVP PRN (11:32)
[2023-12-05] MEDS: prednisoLONE ACETATE 1% OPHTH DROPS 5 ML BTL LEFT EYE SCH (11:38)
[2023-12-05] MEDS: guaiFENesin 600 MG TABLET.ER PO SCH (12:06)
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
[2023-12-05] MEDS: FORMOTEROL FUMARATE 20 MCG/2 ML NEBU INHALATION SCH (15:02)
[2023-12-05] MEDS: BUDESONIDE 1 MG/2 ML NEBU INHALATION SCH (15:02)
[2023-12-05] MEDS: IPRATROPIUM-ALBUTEROL 3 ML NEB INHALATION SCH (15:05)
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
[2023-12-07 09:00] LABS: % Iron Saturation 20.41 (15.00-50.00)
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
--- NOTE | 2023-12-07 14:27 | P.PN ---
Subjective Progress Note Date: 12/07/23 CHIEF COMPLAINT: COPD exacerbation HISTORY OF PRESENT ILLNESS: Surgical service following in regards to patient's left inguinal hernia. Patient continues to have left inguinal hernia bulge. Patient does report pain in the area of blood controlled. He is having bowel movements. Denies any nausea or vomiting. Still having shortness of breath. Afebrile. According to pulmonary's note they were able to reduce the hernia but area is tender. Patient seen and examined with Dr. Paulino PHYSICAL EXAM: VITAL SIGNS: Reviewed. GENERAL: Well-developed in no acute distress. ABDOMEN: Soft. Nondistended. Left inguinal hernia hard and firm but smaller than yesterday. Tender with palpation. No discoloration. NEUROLOGIC: Alert and oriented. Cranial nerves II through XII grossly intact. ASSESSMENT: 1. Incarcerated left inguinal hernia 2. COPD exacerbation 3. A-fib 4. History of ischemic cardiomyopathy PLAN: -Recommend repair of left inguinal hernia when medically stable. Pulmonary kenzie mmendations noted and appreciated. 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 Signing provider agrees with the documented findings, assessment, and plan of care. Objective - Vital Signs Vital signs: Vital Signs Temp 98.1 F 12/07/23 07:24 Pulse 92 12/07/23 11:51 Resp 19 12/07/23 07:24 BP 144/71 12/07/23 07:24 Pulse Ox 98 12/07/23 08:54 FiO2 Intake & Output 12/06/23 12/07/23 12/07/23 18:59 06:59 18:59 Intake Total 300 Output Total 550 1200 Balance -550 -1200 300 Intake: Oral 300 Output: Urine 550 1200 Other: Voiding Method Urinal Toilet Urinal # Voids 2 2 - Labs CBC & Chem 7: 12/04/23 11:48 12/04/23 11:48 Labs: Abnormal Lab Results - Last 24 Hours (Table) 12/07/23 12/07/23 Range/Units 04:19 04:19 Iron 60 L (65-175) UG/DL Folate 3.70 L (4.40-31.00) ng/mL Microbiology - Last 24 Hours (Table) 12/05/23 20:30 Gram Stain - Preliminary Sputum Sputum Culture - Preliminary Corynebacterium striatum 12/04/23 12:00 Blood Culture - Preliminary Blood 12/04/23 12:15 Blood Culture - Preliminary Blood
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
[2023-12-07] MEDS: FOLIC ACID 1 MG TAB PO SCH (17:35)
[2023-12-07] MEDS: methylPREDNISolone SOD SUCCI 125 MG/2 ML VIAL IV SCH (17:36)
[2023-12-07 21:29] LABS: Glucose,Whole Blood 220 mg/dL (70-110)
--- NOTE | 2023-12-08 13:08 | P.PN ---
Subjective Progress Note Date: 12/08/23 CHIEF COMPLAINT: COPD exacerbation HISTORY OF PRESENT ILLNESS: Surgical service following in regards to patient's left inguinal hernia. Patient continues to have left inguinal hernia bulge. Patient reports mild tenderness at the left inguinal hernia site. He is having bowel movements. Denies any nausea or vomiting. Patient had a low-grade temp of 100 yesterday afternoon. Patient seen and examined with Dr. Paulino PHYSICAL EXAM: VITAL SIGNS: Reviewed. GENERAL: Well-developed in no acute distress. ABDOMEN: Soft. Nondistended. Left inguinal hernia firm but smaller than yesterday. mild tenderness with palpation. No discoloration. NEUROLOGIC: Alert and oriented. Cranial nerves II through XII grossly intact. ASSESSMENT: 1. Incarcerated left inguinal hernia 2. COPD exacerbation 3. A-fib 4. History of ischemic cardiomyopathy PLAN: -Recommend repair of left inguinal hernia when medically stable. Discussed case with pulmonary service. Patient is a high risk surgical candidate. Left inguinal hernia repair can be completed outpatient when patient is medically optimized. -Continue management of COPD exacerbation -Resume Eliquis. No plans for surgical intervention at this time. 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 Signing provider agrees with the documented findings, assessment, and plan of care. Objective - Vital Signs Vital signs: Vital Signs Temp 98.0 F 12/08/23 07:36 Pulse 86 12/08/23 11:46 Resp 18 12/08/23 07:36 BP 146/66 12/08/23 07:36 Pulse Ox 100 12/08/23 12:16 FiO2 Intake & Output 12/07/23 12/08/23 12/08/23 18:59 06:59 18:59 Intake Total 730 Output Total 600 1350 Balance 130 -1350 Intake: Oral 730 Output: Urine 600 1350 Other: Voiding Method Toilet Urinal - Labs CBC & Chem 7: 12/04/23 11:48 12/04/23 11:48 Labs: Abnormal Lab Results - Last 24 Hours (Table) 12/07/23 Range/Units 21:28 POC Glucose (mg/dL) 220 H (70-110) mg/dL Microbiology - Last 24 Hours (Table) 12/05/23 20:30 Gram Stain - Preliminary Sputum Sputum Culture - Preliminary Corynebacterium striatum Gram Neg Bacilli 12/04/23 12:00 Blood Culture - Preliminary Blood 12/04/23 12:15 Blood Culture - Preliminary Blood
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
[2023-12-08] MEDS: methylPREDNISolone SOD SUCCI 40 MG/ML 1 ML VIAL IV SCH (18:11)
[2023-12-08] MEDS: APIXABAN 5 MG TAB PO SCH (21:00)
[2023-12-09 08:43] VITALS: BP 147/76; RESP 17; TEMP 97.8
[2023-12-09 12:07] VITALS: PULSE 92
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
[2023-12-09] MEDS ORDERED: SYMBICORT 160-4.5 MCG INHALER INHALATION SCH (20:00)
--- NOTE | 2023-12-10 04:34 | PN ---
PROGRESS NOTE DATE OF SERVICE: 12/09/2023 CHIEF COMPLAINT: COPD exacerbation. HISTORY OF PRESENT ILLNESS: Surgical Service is following in regard to patient's left inguinal hernia. He continues to have a left inguinal hernia bulge. He denies any abdominal pain. Denies any nausea, vomiting. He is having bowel movements. Tolerating diet. Vitals stable. Patient is scheduled for discharge today. PHYSICAL EXAM: Abdomen soft, nontender. Left inguinal hernia firm and nonreducible. No discoloration. ASSESSMENT: Incarcerated left inguinal hernia. PLAN: Recommend repair of left inguinal hernia in the outpatient setting when patient is medically stable. Continue to medically optimize the patient. Patient will need pulmonary clearance before proceeding with surgical intervention. MMODL / IJN: [id number] /
[2023-12-10] MEDS ORDERED: predniSONE 20 MG TAB PO SCH (09:00)
== END 2023-12-09 13:43 | disposition home or self-care (01) | DRG 190 ==
LOC: SUPCPDRO 11:25 → EC 11:25 → 5NMEDONC 12:47 → OBSVTOIN 12:48 → 5NMEDONC 15:12 → 4SSUR 23:15 → 5NMEDONC 12-05 02:36 → 4SSUR 12-05 15:30
PROVIDERS: ADMIT Hospitalist; ATTEND Hospitalist
DX: J44.1 Chronic obstructive pulmonary disease with (acute) exacerbation (principal); J15.69 Pneumonia due to other Gram-negative bacteria; J96.21 Acute and chronic respiratory failure with hypoxia; K40.30 Unilateral inguinal hernia, with obstruction, without gangrene, not specified as recurrent; E44.1 Mild protein-calorie malnutrition; Z68.20 Body mass index [BMI] 20.0-20.9, adult; I12.9 Hypertensive chronic kidney disease with stage 1 through stage 4 chronic kidney disease, or unspecified chronic kidney disease; I25.5 Ischemic cardiomyopathy; I48.91 Unspecified atrial fibrillation; N18.30 Chronic kidney disease, stage 3 unspecified; Z99.81 Dependence on supplemental oxygen; Z88.1 Allergy status to other antibiotic agents; Z87.19 Personal history of other diseases of the digestive system; Z98.41 Cataract extraction status, right eye; E05.90 Thyrotoxicosis, unspecified without thyrotoxic crisis or storm; E11.22 Type 2 diabetes mellitus with diabetic chronic kidney disease; H91.90 Unspecified hearing loss, unspecified ear; K59.00 Constipation, unspecified; Z79.01 Long term (current) use of anticoagulants; Z79.51 Long term (current) use of inhaled steroids; Z79.899 Other long term (current) drug therapy; Z85.528 Personal history of other malignant neoplasm of kidney; Z90.49 Acquired absence of other specified parts of digestive tract; Z90.5 Acquired absence of kidney; Z93.3 Colostomy status; J44.0 Chronic obstructive pulmonary disease with (acute) lower respiratory infection
CPT/HCPCS: 36415; 71046; 80053; 82607; 82728; 82746; 83540; 83550; 83605; 83735; 84145; 85025; 87040; 87070; 87077; 87186; 87205; 87636; 94640; 94667; 94760; 96365; 96366; 96367; 96375; 96376; 99285

== ENCOUNTER 2023-12-09 23:39 | Inpatient (IN) | payer MEDICARE, OTHER ==
[2023-12-10] MEDS: MAGNESIUM SULFATE-D5W PMX 1 GM in DEXTROSE/WATER 1 100ML.BAG IVPB STA (00:22)
[2023-12-10 00:48] LABS: Basophils % (A) 0 %; Eosinophils % (A) 0 %; HCT 40.5 % (39.0-53.0); HGB 12.4 gm/dL (13.0-17.5); Lymphocytes # (A) 0.3 k/uL (1.0-4.8); Lymphocytes % (A) 3 %; MCH 31.2 pg (25.0-35.0); MCHC 30.7 g/dL (31.0-37.0); MCV 101.8 fL (80.0-100.0); Mean Platelet Volume 7.6; Monocytes # (A) 0.4 k/uL (0-1.0); Monocytes % (A) 4 %; Neutrophils # (A) 9.2 k/uL (1.3-7.7); Neutrophils % (A) 93 %; Platelet Count 212 k/uL (150-450); RBC 3.98 m/uL (4.30-5.90); RDW 12.7 % (11.5-15.5)
[2023-12-10 00:56] LABS: VBG PH 7.4 (7.31-7.41)
[2023-12-10 01:03] LABS: ALT 26 U/L (4-49); AST 21 U/L (17-59); African American GFR (CKD) 63 (>60 ml/min/1.73 sqM); Albumin 3.2 g/dL (3.5-5.0); Alkaline Phosphatase 77 U/L (38-126); Blood Urea Nitrogen 42 mg/dL (9-20); Calcium 8.3 mg/dL (8.4-10.2); Carbon Dioxide 22 mmol/L (22-30); Chloride 99 mmol/L (98-107); Glucose 196 mg/dL (74-99); Magnesium 2.2 mg/dL (1.6-2.3); Non-African American GFR(CKD) 54 (>60 ml/min/1.73 sqM); Total Bilirubin 0.5 mg/dL (0.2-1.3); Total Protein 5.1 g/dL (6.3-8.2)
[2023-12-10 01:10] LABS: Partial Thromboplastin Time 20.6 sec (22.0-30.0); Prothrombin Time 11.1 sec (10.0-12.5)
[2023-12-10] MEDS: IPRATROPIUM-ALBUTEROL 3 ML NEB INHALATION STA (01:13)
[2023-12-10 01:30] LABS: Anion Gap 14 mmol/L; Potassium 5.5 mmol/L (3.5-5.1); Sodium 135 mmol/L (137-145)
[2023-12-10] MEDS ORDERED: NALOXONE 0.4 MG/ML 1 ML VIAL IV PRN ×2 (01:38→02:02)
[2023-12-10] MEDS ORDERED: ONDANSETRON 4 MG/2 ML VIAL IVP PRN (01:38)
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
[2023-12-10] MEDS: SODIUM CHLORIDE 0.9% 1,000 ML IV SCH (01:56)
[2023-12-10] MEDS: ASPIRIN 81 MG PO STA (02:26)
[2023-12-10] MEDS: SODIUM CHLORIDE 0.9% 1,000 ML IV STA (03:04)
[2023-12-10] MEDS: IPRATROPIUM-ALBUTEROL 3 ML NEB INHALATION SCH ×2 (04:39→08:31)
[2023-12-10] MEDS: TAMSULOSIN 0.4 MG CAP.ER.24H PO SCH (08:12)
[2023-12-10] MEDS: APIXABAN 5 MG TAB PO SCH (08:12)
[2023-12-10] MEDS: methylPREDNISolone SOD SUCCI 40 MG/ML 1 ML VIAL IV SCH ×2 (08:12→17:25)
[2023-12-10] MEDS: guaiFENesin 600 MG TABLET.ER PO SCH (11:02)
[2023-12-10] MEDS: methIMAzole 5 MG TAB PO SCH (11:02)
[2023-12-10] MEDS: FORMOTEROL FUMARATE 20 MCG/2 ML NEBU INHALATION SCH (11:03)
[2023-12-10] MEDS: BUDESONIDE 1 MG/2 ML NEBU INHALATION SCH (11:03)
[2023-12-10] MEDS: FOLIC ACID 1 MG TAB PO SCH (11:09)
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
[2023-12-10] MEDS: SODIUM POLYSTYRENE SULFONATE 15 GM/60 ML BOTTLE PO STA (14:41)
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
[2023-12-10 16:26] LABS: Glucose,Whole Blood 197 mg/dL (70-110)
[2023-12-10] MEDS: prednisoLONE ACETATE 1% OPHTH DROPS 5 ML BTL LEFT EYE SCH (17:06)
--- NOTE | 2023-12-10 17:22 | CA ---
Transthoracic Echo Report Name: Deacon Alejandra Age: 78 Gender: M : 1945 Exam Date: 12/10/2023 15:03 Exam Location: [employer] Echo Ht (in): 71 Wt (lb): 145 Ordering Physician: Cortez Romero DO ([email or web address]) Attending/Referring Phys: Maintenance Supervisor 2Nd Shift Jade Barreto RDCS Procedure CPT: Indications: re: LV function Cardiac Hx: Technical Quality: Fair Contrast 1: Total Dose (mL): Contrast 2: Total Dose (mL): MEASUREMENTS (Male / Female) Normal Values 2D ECHO LV Diastolic Diameter PLAX 4.0 cm 4.2 - 5.9 / 3.9 - 5.3 cm LV Systolic Diameter PLAX 3.1 cm IVS Diastolic Thickness 1.3 cm 0.6 - 1.0 / 0.6 - 0.9 cm LVPW Diastolic Thickness 1.2 cm 0.6 - 1.0 / 0.6 - 0.9 cm LV Relative Wall Thickness 0.6 M-MODE Aortic Root Diameter MM 3.6 cm LA Systolic Diameter MM 3.6 cm LA Ao Ratio MM 1.0 AV Cusp Separation MM 2.1 cm DOPPLER AV Peak Velocity 123.5 cm/s AV Peak Gradient 6.1 mmHg AV Mean Velocity 82.4 cm/s AV Mean Gradient 3.1 mmHg AV Velocity Time Integral 23.5 cm LVOT Peak Velocity 85.2 cm/s LVOT Peak Gradient 2.9 mmHg LVOT Velocity Time Integral 17.9 cm MV Area PHT 3.0 cm??? Mitral E Point Velocity 49.8 cm/s Mitral A Point Velocity 71.1 cm/s Mitral E to A Ratio 0.7 MV Deceleration Time 254.1 ms TR Peak Velocity 239.7 cm/s TR Peak Gradient 23.0 mmHg Right Ventricular Systolic Press 26.9 mmHg FINDINGS Left Ventricle Mildly increased left ventricular wall thickness. Left ventricular cavity size normal. Normal left ventricular systolic function with no obvious regional wall motion abnormalities. Left ventricular ejection fraction is estimated at 55 %. Right Ventricle Normal right ventricular size and function. Right Atrium Normal right atrial size. Left Atrium Normal left atrial size. Mitral Valve Structurally normal mitral valve. Mitral valve thickened. Mild mitral annular calcification. Mild mitral regurgitation. Aortic Valve Trileaflet aortic valve. Thickened aortic valve without stenosis. No aortic regurgitation. Tricuspid Valve Structurally normal tricuspid valve. Mild tricuspid regurgitation. Pulmonic Valve Structurally normal pulmonic valve. Trace pulmonic regurgitation. Pericardium No pericardial effusion. Aorta Normal size aortic root and proximal ascending aorta. CONCLUSIONS LVEF 50-55% Normal LV cavity size. Mild concentric LVH. No obvious regional wall motion abnormality Normal RV size and function RVSP is not elevated and estimated around 27 mmHg Mild MR No other significant valvular dysfunction When compared to prior echo from 2021, LVEF is improved and segmental wall motion has improved Previewed by: Dr Chay Hooper (Electronically Signed) Final Date: 10 December 2023 17:21
[2023-12-10] MEDS ORDERED: DEXTROSE 50% SYRINGE 50 ML IVP PRN ×2 (18:13)
[2023-12-10 19:57] LABS: Glucose,Whole Blood 212 mg/dL (70-110)
[2023-12-10] MEDS ORDERED: SYMBICORT 160-4.5 MCG INHALER INHALATION SCH (20:00)
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
[2023-12-10] MEDS: INSULIN ASPART (NovoLOG) 100 UNIT/ML VIAL SQ SCH (21:19)
[2023-12-10] MEDS: THEOPHYLLINE 24 HOUR 200 MG CAP.ER.24H PO SCH (21:34)
[2023-12-11] MEDS ORDERED: IPRATROPIUM-ALBUTEROL 3 ML NEB INHALATION PRN (00:34)
[2023-12-11 06:05] LABS: Glucose,Whole Blood 187 mg/dL (70-110)
[2023-12-11 06:19] LABS: Basophils % (A) 0 %; Eosinophils % (A) 0 %; HCT 33.1 % (39.0-53.0); HGB 10.5 gm/dL (13.0-17.5); Lymphocytes # (A) 0.2 k/uL (1.0-4.8); Lymphocytes % (A) 2 %; MCH 31.4 pg (25.0-35.0); MCHC 31.8 g/dL (31.0-37.0); MCV 98.8 fL (80.0-100.0); Mean Platelet Volume 8.1; Monocytes # (A) 0.4 k/uL (0-1.0); Monocytes % (A) 4 %; Neutrophils % (A) 93 %; Platelet Count 212 k/uL (150-450); RBC 3.35 m/uL (4.30-5.90); RDW 13.1 % (11.5-15.5); WBC 9.7 k/uL (3.8-10.6)
[2023-12-11 06:37] LABS: ALT 22 U/L (4-49); AST 19 U/L (17-59); African American GFR (CKD) 83 (>60 ml/min/1.73 sqM); Albumin 2.8 g/dL (3.5-5.0); Alkaline Phosphatase 63 U/L (38-126); Anion Gap 4 mmol/L; Blood Urea Nitrogen 37 mg/dL (9-20); Calcium 8.2 mg/dL (8.4-10.2); Carbon Dioxide 27 mmol/L (22-30); Chloride 101 mmol/L (98-107); Glucose 186 mg/dL (74-99); Non-African American GFR(CKD) 72 (>60 ml/min/1.73 sqM); Potassium 4.6 mmol/L (3.5-5.1); Sodium 132 mmol/L (137-145); Total Bilirubin 0.6 mg/dL (0.2-1.3); Total Protein 4.7 g/dL (6.3-8.2)
[2023-12-11] MEDS ORDERED: predniSONE 20 MG TAB PO SCH (09:00)
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
[2023-12-11 12:03] LABS: Glucose,Whole Blood 277 mg/dL (70-110)
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
[2023-12-11] MEDS: IPRATROPIUM-ALBUTEROL 3 ML NEB INHALATION SCH (15:09)
--- NOTE | 2023-12-11 15:48 | P.PN ---
Subjective Progress Note Date: 12/11/23 HISTORY OF PRESENTING ILLNESS This is a pleasant 78-year-old with past medical history significant for par oxysmal atrial fibrillation, diabetes mellitus type 2, COPD on home oxygen, hypertension, hyperlipidemia, aortic aneurysm, single kidney, CAD status post PCI of the LAD and prior ischemic cardiomyopathy EF 30-35% who presents secondary shortness of breath. He previously followed briefly in the office with Dr. Romero back in July 2022 however has not been seen since that time. In May 2023 he had chest pain and catheterization showed obstructive disease of the LAD and underwent stenting. He has done fairly well since that time and mainly inhibited by his breathing. He denies any chest pain or pressure. The patient was recently in the hospital December 03. During for COPD exacerbation and left inguinal hernia and was only discharged approximately for one day and then transferred back for further care. His troponins were noted to be mildly elevated 0.04, 0.03. Creatinine 1.2. EKG showing sinus rhythm with nonspecific ST, T-wave abnormalities. Denies any significant lower extremity edema. 12/10 BNP 1670. He reports that his shortness of breath has not improved. He denies any chest pain or pressure. No swelling. Echo with EF 55%. PHYSICAL EXAMINATION Vital signs reviewed. CONSTITUTIONAL: No apparent distress. HEENT: Head is normocephalic. Pupils are equal, round. Sclerae anicteric. Mucous membranes of the mouth are moist. No JVD. No carotid bruit. CHEST EXAMINATION: Lungs with rhonchi and wheezes. No chest wall tenderness is noted on palpation or with deep breathing. HEART EXAMINATION: Regular rate and rhythm. S1, S2 heard. No murmurs, gallops or rub. ABDOMEN: Soft, nontender. Positive bowel sounds. EXTREMITIES: 2+ peripheral pulses, no lower extremity edema and no calf tenderness. NEUROLOGIC EXAMINATION: Patient is awake, alert and oriented x3. ASSESSMENT Acute on chronic respiratory failure appears mainly related to COPD Acute exacerbation of COPD on home O2 CAD status post PCI 2021 Chronically elevated troponin, no evidence of acute coronary syndrome, no significant angina-type symptoms Hypertension Hyperlipidemia Chronic kidney disease Status post nephrectomy, renal cell cancer in the past Paroxysmal atrial fibrillation currently sinus rhythm Hyperthyroidism PLAN Patient's symptoms mainly appear related to his COPD. BNP normal. Echo shows preserved EF without significant valvular disease. Does not currently appear volume overloaded. No further workup from cardiology. We will sign off. Please call with any questions or concerns. Follow-up in office 1 to 2 weeks after discharge. Seen and examined in rounds with Dr. Romero, plan of care agreed upon. Objective - Vital Signs Vital signs: Vital Signs Temp 97.3 F L 12/11/23 08:00 Pulse 80 12/11/23 08:09 Resp 24 12/11/23 08:00 BP 128/63 12/11/23 08:00 Pulse Ox 99 12/11/23 08:00 FiO2 50 12/10/23 04:41 Intake & Output 12/10/23 12/11/23 12/11/23 18:59 06:59 18:59 Intake Total 120 Output Total 2575 Balance 120 -2575 Weight 65.771 kg Intake: Oral 120 Output: Urine 2575 - Labs CBC & Chem 7: 12/11/23 05:41 12/11/23 05:41 Labs: Abnormal Lab Results - Last 24 Hours (Table) 12/10/23 12/10/23 12/11/23 Range/Units 16:24 19:55 05:41 RBC (4.30-5.90) m/uL Hgb (13.0-17.5) gm/dL Hct (39.0-53.0) % Neutrophils # (1.3-7.7) k/uL Lymphocytes # (1.0-4.8) k/uL Sodium (137-145) mmol/L BUN (9-20) mg/dL Glucose (74-99) mg/dL POC Glucose (mg/dL) 197 H 212 H (70-110) mg/dL Hemoglobin A1c 6.3 H (<=6.0) % Calcium (8.4-10.2) mg/dL Total Protein (6.3-8.2) g/dL Albumin (3.5-5.0) g/dL 12/11/23 12/11/23 12/11/23 Range/Units 05:41 05:41 06:03 RBC 3.35 L (4.30-5.90) m/uL Hgb 10.5 L (13.0-17.5) gm/dL Hct 33.1 L (39.0-53.0) % Neutrophils # 9.0 H (1.3-7.7) k/uL Lymphocytes # 0.2 L (1.0-4.8) k/uL Sodium 132 L (137-145) mmol/L BUN 37 H (9-20) mg/dL Glucose 186 H (74-99) mg/dL POC Glucose (mg/dL) 187 H (70-110) mg/dL Hemoglobin A1c (<=6.0) % Calcium 8.2 L (8.4-10.2) mg/dL Total Protein 4.7 L (6.3-8.2) g/dL Albumin 2.8 L (3.5-5.0) g/dL
[2023-12-11 16:42] LABS: Glucose,Whole Blood 234 mg/dL (70-110)
[2023-12-11 20:09] LABS: Glucose,Whole Blood 263 mg/dL (70-110)
[2023-12-12 06:08] LABS: Glucose,Whole Blood 168 mg/dL (70-110)
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
[2023-12-12 11:54] LABS: Glucose,Whole Blood 160 mg/dL (70-110)
[2023-12-12 16:53] LABS: Glucose,Whole Blood 212 mg/dL (70-110)
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
[2023-12-12 19:46] LABS: Glucose,Whole Blood 179 mg/dL (70-110)
[2023-12-13 05:47] LABS: Glucose,Whole Blood 171 mg/dL (70-110)
[2023-12-13 11:34] LABS: Glucose,Whole Blood 235 mg/dL (70-110)
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
[2023-12-13 16:15] LABS: Glucose,Whole Blood 213 mg/dL (70-110)
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
[2023-12-14 07:08] LABS: Glucose,Whole Blood 177 mg/dL (70-110)
[2023-12-14 11:57] LABS: Glucose,Whole Blood 143 mg/dL (70-110)
[2023-12-14 17:18] LABS: Glucose,Whole Blood 202 mg/dL (70-110)
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
[2023-12-14] MEDS: predniSONE 20 MG TAB PO STA (18:22)
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
[2023-12-14 20:19] LABS: Glucose,Whole Blood 159 mg/dL (70-110)
[2023-12-15 07:08] LABS: Glucose,Whole Blood 156 mg/dL (70-110)
[2023-12-15 07:55] VITALS: BMI 20.5
[2023-12-15] MEDS: predniSONE 50 MG TAB PO SCH (08:33)
[2023-12-15 12:31] LABS: Glucose,Whole Blood 159 mg/dL (70-110)
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
[2023-12-15 14:52] VITALS: BP 143/77; RESP 18; TEMP 98.1
[2023-12-15 15:25] VITALS: PULSE 90
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
== END 2023-12-15 17:21 | DRG 190 ==
LOC: EC 23:39 → 3SCARD 12-10 01:38 → 5NMEDONC 12-13 22:53
PROVIDERS: ADMIT Hospitalist; ATTEND Hospitalist
PROC: 5A09357 Assistance with Respiratory Ventilation, Less than 24 Consecutive Hours, Continuous Positive Airway Pressure (ICD-10-PCS; principal; 2023-12-09)
DX: J44.0 Chronic obstructive pulmonary disease with (acute) lower respiratory infection (principal); J18.9 Pneumonia, unspecified organism; J96.21 Acute and chronic respiratory failure with hypoxia; E44.1 Mild protein-calorie malnutrition; I48.20 Chronic atrial fibrillation, unspecified; D63.1 Anemia in chronic kidney disease; E11.22 Type 2 diabetes mellitus with diabetic chronic kidney disease; Z99.81 Dependence on supplemental oxygen; J44.1 Chronic obstructive pulmonary disease with (acute) exacerbation; I12.9 Hypertensive chronic kidney disease with stage 1 through stage 4 chronic kidney disease, or unspecified chronic kidney disease; N18.30 Chronic kidney disease, stage 3 unspecified; I71.9 Aortic aneurysm of unspecified site, without rupture; E05.90 Thyrotoxicosis, unspecified without thyrotoxic crisis or storm; D64.9 Anemia, unspecified; Z68.20 Body mass index [BMI] 20.0-20.9, adult; I25.5 Ischemic cardiomyopathy; E78.5 Hyperlipidemia, unspecified; I25.10 Atherosclerotic heart disease of native coronary artery without angina pectoris; K76.9 Liver disease, unspecified; K40.90 Unilateral inguinal hernia, without obstruction or gangrene, not specified as recurrent; N40.0 Benign prostatic hyperplasia without lower urinary tract symptoms; E53.8 Deficiency of other specified B group vitamins; M19.91 Primary osteoarthritis, unspecified site; H91.90 Unspecified hearing loss, unspecified ear; R79.89 Other specified abnormal findings of blood chemistry; Z79.01 Long term (current) use of anticoagulants; Z79.51 Long term (current) use of inhaled steroids; Z79.899 Other long term (current) drug therapy; Z60.2 Problems related to living alone; Z87.891 Personal history of nicotine dependence; Z85.528 Personal history of other malignant neoplasm of kidney; Z95.5 Presence of coronary angioplasty implant and graft; Z86.19 Personal history of other infectious and parasitic diseases; Z71.3 Dietary counseling and surveillance; Z88.8 Allergy status to other drugs, medicaments and biological substances
CPT/HCPCS: 36415; 80053; 82803; 83036; 83735; 83880; 84484; 85025; 85610; 85730; 87636; 93005; 93306; 94640; 94660; 94667; 94668; 94760; 96361; 96365; 96375; 99291

== ENCOUNTER 2024-02-02 07:30 | Day surgery (SDC) | payer MEDICARE, OTHER ==
[2024-02-02] MEDS ORDERED: ROPIVACAINE 5 MG/ML 30 ML VIAL ONE ×2 (08:12→08:55)
[2024-02-02] MEDS ORDERED: HEPARIN SODIUM,PORCINE 5,000 UNIT/ML 1 ML VIAL ONE (08:12)
[2024-02-02] MEDS ORDERED: DEXAMETHASONE SOD PHOSPHATE 4 MG/ML 1 ML VIAL ONE ×2 (08:12→08:55)
[2024-02-02] MEDS ORDERED: ONDANSETRON 4 MG/2 ML VIAL ONE (08:12)
[2024-02-02] MEDS ORDERED: ACETAMINOPHEN TAB 500 MG TAB ONE (08:12)
[2024-02-02] MEDS ORDERED: MIDAZOLAM 2 MG/2 ML VIAL ONE (08:12)
[2024-02-02] MEDS ORDERED: SODIUM CHLORIDE 0.9% (PF) VIAL 0 ML ONE (08:13)
[2024-02-02] MEDS ORDERED: IPRATROPIUM-ALBUTEROL 3 ML NEB ONE ×2 (08:33→09:49)
[2024-02-02] MEDS ORDERED: PROPOFOL 10 MG/ML 20 ML VIAL IV ONE (08:55)
[2024-02-02] MEDS ORDERED: ROCURONIUM 10 MG/ML (5 ML VIAL) IV ONE (08:55)
[2024-02-02] MEDS ORDERED: LIDOCAINE 1%-EPI 1:100,000 20 ML VIAL ONE (08:55)
[2024-02-02] MEDS ORDERED: SUCCINYLCHOLINE CHLORIDE 200 MG/10 ML VIAL IV ONE (08:55)
[2024-02-02] MEDS ORDERED: GLYCOPYRROLATE 0.2 MG/ML 2 ML VIAL ONE (08:55)
[2024-02-02] MEDS ORDERED: NEOSTIGMINE 1 MG/ML 10 ML VIAL ONE (08:55)
[2024-02-02] MEDS ORDERED: LACTATED RINGERS 1,000 ML BAG ONE (08:55)
[2024-02-02] MEDS ORDERED: LIDOCAINE 1% INJ 10MG/ML (20 ML MDV) ONE (08:55)
[2024-02-02] MEDS ORDERED: fentaNYL (PF) 50 MCG/ML 2 ML AMP ONE (08:55)
--- NOTE | 2024-02-29 18:24 | P.OP ---
Date of Procedure: 02/02/24 Preoperative Diagnosis: Left inguinal hernia Postoperative Diagnosis: left inguinal hernia Procedure(s) Performed: laparoscopic robot-assisted pair of left inguinal hernia Anesthesia: DARLING Surgeon: Pablo Paulino Estimated Blood Loss (ml): 5 Pathology: none sent Condition: stable Disposition: PACU Description of Procedure: b patient is placed on the operative table in the supine position. He received general endotracheal anesthesia. His abdomen was prepped and draped you sterile fashion. The patient was then placed in Trendelenburg position. A supraumbilical skin incision was made. And then using an optical 5 mm trocar the peritoneal cavity under. The abdomen insufflated. After adequate insufflation the 5 mm trocars placed in the peril cavity and then the laparoscope placed Marol cavity. Next 8 mm robotic trocars placed in the right and left lateral position. And then the original 5 mm trocar was exchanged for an 8 mm robotic trocar. The patient was then docked to the robot. The left inguinal hernia was visualized. The peritoneum over the hernia was then incised using the backcut suture grasper. And then the hernia sac was dissected free. Once the hernia was dissected free. The hernia mesh was placed into hernia mesh was placed into inguinal space. And then the peritoneum was closed with 2 oh V- Loc suture. The needle was retrieved. There is no bleeding seen. The chart was withdrawn. The skin was then closed interrupted 3-0 Monocryl suture. Dermabond dressing applied. Patient tolerated well. He is sent to recovery in stable condition.
== END 2024-02-02 12:21 ==
LOC: OR 07:30
PROVIDERS: ATTEND Surgery
DX: K40.90 Unilateral inguinal hernia, without obstruction or gangrene, not specified as recurrent (principal); I25.10 Atherosclerotic heart disease of native coronary artery without angina pectoris; I48.91 Unspecified atrial fibrillation; J44.9 Chronic obstructive pulmonary disease, unspecified; E03.9 Hypothyroidism, unspecified; Z79.01 Long term (current) use of anticoagulants; Z79.1 Long term (current) use of non-steroidal anti-inflammatories (NSAID); Z95.5 Presence of coronary angioplasty implant and graft; Z79.899 Other long term (current) drug therapy; Z79.51 Long term (current) use of inhaled steroids
CPT/HCPCS: 64488

== ENCOUNTER → 2024-02-09 | Outpatient (CLI) | payer MEDICARE, OTHER ==
--- NOTE | 2024-02-09 22:04 | CT ---
EXAMINATION TYPE: CT chest wo con DATE OF EXAM: 02/09/2024 COMPARISON: Chest x-ray 12/09/2023 HISTORY: Lung nodule, COPD. CT DLP: 502 mGycm, Automated exposure control for dose reduction was used. CONTRAST: Performed injected with 0 mL of Isovue 300. TECHNIQUE: Axial images were obtained at 5 mm thick sections. Reconstructed images are reviewed on [employer] computer in the coronal plane. FINDINGS: Portion of the thyroid visualized is normal. No suspicious lung nodules or focal infiltrates are present. Extensive emphysematous changes are pres ent. There appears to be scarring at the right apex. Discrete mass is not identified. Short-term foll ow-up in 3-6 months is recommended. No enlarged mediastinal or hilar adenopathy is evident. The ascending aorta diameter at the level o f the main pulmonary artery is 3.7 cm. The main pulmonary artery diameter at the bifurcation is 2.[address] sections are obtained through the upper abdomen. Aortic graft is partially visualized. Ally or bowel surgery may be present within the anterior abdomen. No suspicious acute changes. IMPRESSION: 1. Advanced emphysematous changes with suspected scarring at the right apex. Follow-up exam in 3-6 mo nths is recommended.
== END | disposition home or self-care (01) ==
LOC: RADCTMAIN 15:09
PROVIDERS: ATTEND Internal Medicine
DX: R91.1 Solitary pulmonary nodule
CPT/HCPCS: 71250